=== PATIENT | male | born 1945 | race Caucasian/White ===

== ENCOUNTER 2024-01-19 11:29 | Outpatient (REF) | payer MEDICARE, BC, SELFPAY ==
[2024-01-19 13:28] LABS: Alanine Aminotransferase 22 U/L (0-40); Albumin Level 3.7 g/dL (3.5-5.0); Alkaline Phosphatase 138 U/L (39-117); Anion Gap 12 (12-20); Aspartate Amino Transferase 21 U/L (5-37); Bilirubin Total 0.2 mg/dL (0.0-1.0); Blood Urea Nitrogen 19 mg/dL (9-16); Calcium 8.7 mg/dL (8.4-10.2); Carbon Dioxide 28 mmol/L (22-29); Chloride 103 mmol/L (96-108); Estimated Glomerular Filt Rate > 60; Glucose Random 60 mg/dL (60-115); Sodium 138 mmol/L (135-145); Total Protein 6.9 g/dL (6.5-8.0)
== END 2024-01-19 11:30 | disposition home or self-care (01) ==
LOC: HO.HKASLDS 11:29
PROVIDERS: Visit Provider Internal Medicine Hypertension Specialist
DX: N18.9 Chronic kidney disease, unspecified (principal)
CPT/HCPCS: 36415; 80053

== ENCOUNTER 2024-01-21 09:53 | Outpatient (AMB) | payer MEDICARE, BC, SELFPAY ==
[2024-01-21 10:06] VITALS: BP 112/62; PULSE 68; O2SAT 99; BMI 24.6
--- NOTE | 2024-01-21 10:06 | HO.NEPHOV_ITS ---
HPI HPI Comments History of Present Illness Details Tip is a 78-year-old gentleman whom I had the privilege in seeing in follow-up for edema. He had shoulder surgery on the left in October 2021. Following this, he had developed body rash as well as generalized edema. 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 Subsequently he underwent right shoulder surgery as well. There was no concrete reason identified for his edema. He was treated with Lasix with improvement. He has no history of any renal function or liver function abnormality. He denies shortness of breath, paroxysmal nocturnal dys pnea, orthopnea. He feels improved. [facility] Surgical History (Updated 01/21/24 @ 10:09 by Bobbi Alvarez) History of right shoulder replacement (~06/2023) Vital Signs 01/21/24 10:06 Height 6 ft 3 in Weight 197 lb BMI 24.6 BP 112/62 Blood Pressure Location Lt brachial Position Sitting Pulse 68 Pulse Source Pulse Oximeter Pulse Oximetry (%) 99 Oxygen Delivery Method Room Air Physical Exam Vital Signs: Last Vital Signs Pulse 68 01/21/24 10:06 BP 112/62 01/21/24 10:06 Pulse Ox 99 01/21/24 10:06 Oxygen Delivery Method Room Air 01/21/24 10:06 BMI result Body Mass Index 24.6 Const General: comfortable and no acute distress Orientation/consciousness: patient oriented x3 HEENT Head: Yes normocephalic Mouth: Normal oral and palatal mucosa present Eyes EOM: EOMs intact bilaterally Neck Neck: Yes supple Resp Auscultation: clear to auscultation bilaterally Cardio Jugular venous distension: no JVD Rate: regular rate GI Palpation (GI): Soft to palpation Auscultation: normal bowel sounds General: Yes no CVA tenderness Back/Spine/Pelvis Back: no CVA tenderness Skin General skin exam: no rashes or lesions noted Neuro General: patient oriented x3 and moves all extremities Extrem General: Yes no pedal edema Assessment & Plan Assessment & Plan (1) Edema: Code(s): R60.9 - Edema, unspecified Qualifiers: Edema type: unspecified Qualified Code(s): R60.9 - Edema, unspecified Plan Tip had edema, etiology of which was never determined. He had seen multiple specialists. His urine protein creatinine ratio was unremarkable. He was treated with diuretics. His renal functions on normal. He does not consume excess sodium in the diet. His lungs were clear. His liver functions are normal. His serum albumin was never too low. He had echocardiogram. Currently he is euvolemic on the current dose of diuretics. I did not make any medication changes today. Answered all questions. Orders: Orders Electrolytes Today R60.9 - Edema, unspecified Creatinine Today R60.9 - Edema, unspecified Blood Urea Nitrogen Today R60.9 - Edema, unspecified Protein Creatinine Ratio, Ur Today R60.9 - Edema, unspecified Coding Level of Care Code Est Pt Level 4 (34460) Diagnoses Edema, unspecified type R60.9 Edema type: unspecified Results Reviewed Nephrology Results: Sodium 138 mmol/L (135-145) 01/19/24 Potassium 5.0 mmol/L (3.3-5.1) 01/19/24 Chloride 103 mmol/L (96-108) 01/19/24 Carbon Dioxide 28 mmol/L (22-29) 01/19/24 BUN 19 mg/dL (9-16) H 01/19/24 Creatinine 0.82 mg/dL (0.5-1.4) 01/19/24 Calcium 8.7 mg/dL (8.4-10.2) 01/19/24
== END 2024-01-21 10:44 | disposition home or self-care (01) ==
PROVIDERS: PCP Internal Medicine Endocrinology, Diabetes & Metabolism; Visit Provider Internal Medicine Nephrology
DX: R60.9 Edema, unspecified (principal)
CPT/HCPCS: 99214

== ENCOUNTER → 2024-01-21 09:53 | Outpatient (BNVA) | payer MEDICARE, BC, SELFPAY | PROVIDERS: PCP Internal Medicine Endocrinology, Diabetes & Metabolism; Visit Provider Internal Medicine Nephrology | DX: R60.9 Edema, unspecified (principal) | CPT/HCPCS: 99212 ==

== ENCOUNTER 2024-07-05 10:41 | Outpatient (REF) | payer MEDICARE, BC, SELFPAY ==
[2024-07-05 18:19] LABS: Creatinine Urine 54.29 mg/dL; Total Protein Urine Random < 7 mg/dL (<12)
[2024-07-05 18:24] LABS: Anion Gap 12 (12-20); Blood Urea Nitrogen 20 mg/dL (9-16); Carbon Dioxide 27 mmol/L (22-29); Chloride 99 mmol/L (96-108); Estimated Glomerular Filt Rate > 60; Potassium 4.6 mmol/L (3.3-5.1); Sodium 133 mmol/L (135-145)
== END 2024-07-05 10:42 | disposition home or self-care (01) ==
LOC: HO.HKASLDS 10:41
PROVIDERS: Visit Provider Internal Medicine Nephrology
DX: R60.9 Edema, unspecified (principal)
CPT/HCPCS: 36415; 80051; 82565; 82570; 84156; 84520

== ENCOUNTER 2024-07-14 10:07 | Outpatient (AMB) | payer MEDICARE, BC, SELFPAY ==
--- NOTE | 2024-07-14 10:12 | HO.NEPHOV_ITS ---
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 He had shoulder surgery on the left in October 2021. Following this, he had developed body rash as well as generalized edema. 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 Subsequently he underwent right shoulder surgery as well. There was no concrete reason identified for his edema. He was treated with Lasix with improvement. He has no history of any renal function or liver function abnormality. He denies shortness of breath, paroxysmal nocturnal dyspnea, orthopnea. He feels improved [facility] Surgical History History of right shoulder replacement (~06/2023) Social History (Updated 07/14/24 @ 10:17 by Diana Perry MA) Alcohol intake: never Patient Tobacco Use Status: Never used Tobacco Use of substances other than those prescribed or required for medical reasons: No Review of Systems Const All systems reviewed & are unremarkable except as noted in HPI and below Physical Exam Vital Signs: Last Vital Signs BP 102/60 07/14/24 10:13 BMI result Body Mass Index 23.8 Const General: comfortable and no acute distress Orientation/consciousness: patient oriented x3 HEENT Head: Yes normocephalic Mouth: Normal oral and palatal mucosa present Eyes EOM: EOMs intact bilaterally Neck Neck: Yes supple Resp Auscultation: clear to auscultation bilaterally Cardio Jugular venous distension: no JVD Rate: regular rate GI Palpation (GI): Soft to palpation Auscultation: normal bowel sounds General: Yes no CVA tenderness Back/Spine/Pelvis Back: no CVA tenderness Skin General skin exam: no rashes or lesions noted Neuro General: patient oriented x3 and moves all extremities Extrem General: Yes no pedal edema Results Reviewed Nephrology Results: Sodium 133 mmol/L (135-145) L 07/05/24 Potassium 4.6 mmol/L (3.3-5.1) 07/05/24 Chloride 99 mmol/L (96-108) 07/05/24 Carbon Dioxide 27 mmol/L (22-29) 07/05/24 BUN 20 mg/dL (9-16) H 07/05/24 Creatinine 0.85 mg/dL (0.5-1.4) 07/05/24 Calcium 8.7 mg/dL (8.4-10.2) 01/19/24 Urine Creatinine 54.29 mg/dL 07/05/24 Protein/Creatinin Ratio TNP 07/05/24 Assessment & Plan Assessment & Plan (1) Edema: Code(s): R60.9 - Edema, unspecified Category: Medical Qualifiers: Edema type: unspecified Qualified Code(s): R60.9 - Edema, unspecified (2) Hyponatremia: Code(s): E87.1 - Hypo-osmolality and hyponatremia Category: Medical Plan Tip had edema, etiology of which was never determined. He had seen multiple specialists. His urine protein creatinine ratio was unremarkable. He was t reated with diuretics. His renal functions on normal. His serum sodium is acceptable. He is going to be on fluid restriction. He does not consume excess sodium in the diet. His lungs were clear. His liver functions are normal. His serum albumin was never too low. He had echocardiogram. Currently he is euvolemic on the current dose of diuretics. I did not make any medication changes today. Answered all questions Orders: Orders Blood Urea Nitrogen Today E87.1 - Hypo-osmolality and hyponatremia, R60.9 - Edema, unspecified Creatinine Today E87.1 - Hypo-osmolality and hyponatremia, R60.9 - Edema, unspecified Electrolytes Today E87.1 - Hypo-osmolality and hyponatremia, R60.9 - Edema, unspecified Coding Level of Care Code Est Pt Level 4 (65931) Diagnoses Edema, unspecified type R60.9 Edema type: unspecified Hyponatremia E87.1
[2024-07-14 10:13] VITALS: BP 102/60; BMI 23.8
== END 2024-07-14 10:34 | disposition home or self-care (01) ==
PROVIDERS: PCP Internal Medicine Endocrinology, Diabetes & Metabolism; Visit Provider Internal Medicine Nephrology
DX: R60.9 Edema, unspecified (principal); E87.1 Hypo-osmolality and hyponatremia
CPT/HCPCS: 99214

== ENCOUNTER → 2024-07-14 10:07 | Outpatient (BNVA) | payer MEDICARE, BC, SELFPAY | PROVIDERS: PCP Internal Medicine Endocrinology, Diabetes & Metabolism; Visit Provider Internal Medicine Nephrology | DX: R60.9 Edema, unspecified (principal); E87.1 Hypo-osmolality and hyponatremia | CPT/HCPCS: 99212 ==

== ENCOUNTER 2025-01-05 14:09 | Outpatient (REF) | payer MEDICARE, BC, SELFPAY ==
--- OUTSIDE RECORDS SUMMARY | 2025-01-05 17:22 | XMS_ITS | Clinical Summary ---
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 Name Role Phone Mahendra Espinosa MD Primary Care Provider Allergies Active Allergy Reactions Criticality Noted Date Comments Clindamycin Diarrhea 08/11/2011 Lactose 09/08/2022 Penicillins 2021 Other reaction(s): as a child, hives Sulfamethoxazole-Trimethopr im 02/01/2018 Burning/itching sensation in calves Medications primidone (MYSOLINE) 250 MG tablet Take 750 mg by mouth 1 (one) time each day Active cycloSPORINE (RESTASIS) 0.05 % ophthalmic emulsion 1 drop 2 (two) times a day Active EPINEPHrine (EPIPEN) 0.3 MG/0.3ML injection syringe PLEASE SEE ATTACHED FOR DETAILED DIRECTIONS 2 Active triamcinolone (KENALOG) 0.1 % cream 2 Active propranolol LA (INDERAL LA) 60 MG 24 hr capsule Take 60 mg by mouth 1 (one) time each day in the evening 2 Active mirtazapine (REMERON) 15 MG tablet Take 15 mg by mouth 1 (one) time each day in the evening 2 Active Polyethylene Glycol 3350 (MIRALAX PO) Take by mouth Act justin alfuzosin (UROXATRAL) 10 MG 24 hr tablet Take 1 tablet by mouth every other day 2 Active Dupilumab 300 MG/2ML solution pen-injector Inject 2 mL under the skin every 14 (fourteen) days 2 Active DULoxetine (CYMBALTA) [address] capsule Take 60 mg by mouth 1 (one) time each day Do not crush or chew. Active buPROPion SR (WELLBUTRIN SR) 100 MG 12 hr tablet Take 100 mg by mouth in the morning and 100 mg in the evening. Do not crush, chew, or split. . 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 Eruption 07/11/2022 Fracture of scapula 06/07/2022 Generalized edema 03/04/2022 Cervical disc disorder 03/03/2022 Essential tremor 12/07/2021 Irritable bowel syndrome 07/29/2018 Benign prostatic hyperplasia 12/09/2017 Immunizations Name Administration Dates Next Due Influenza Split High Dose Pr eservative Free IM 07/30/2021,07/27/2020,08/17/2019,08/27,07/22/2017,07/28/2016,08/27/2015 ,08/24/2014,08/22/2013,08/18/2012,08/02,08/13/2010,08/07/2009, 8 Pfizer SARS-COV-2 07/30/2021 Pneumococcal Conjugate 13-Valent 07/27/2020,08/03 Pneumococcal Polysaccharide 08/18/2012 Shingrix 09/28/2019,07/29/2019 Td, Unspecified 09/04/2006,11/02/1995 Tdap 01/06/2023,08/15/2011 Zoster 08/15/2010 Family History Medical History Relation Comments Parkinsonism Father Cancer Maternal Grandmother Relation Status Comments Father Maternal Grandmother Social History Tobacco Use Types Packs/Day Years Used Date Smoking Tobacco: Never Smokeless Tobacco: Never Tobacco Cessation:Counseling Given: Not Answered Alcohol Use Standard Drinks/Week Comments Not Currently 0 (1 standard drink = 0.6 oz pur e alcohol) Sex and Gender Information Value Date Recorded Sex Assigned at Not on file Legal Sex Male 11:17 AM EDT Gender Identity Not on file Sexual Orientation Not on file Last Filed Vital Signs Vital Sign Reading Time Taken Comments Blood Pressure 100/70 02/09/2023 1:40 PM EDT Pulse 71 02/09/2023 1:40 PM EDT Temperature - - Respiratory Rate - - Oxygen Saturation 96% 07/15/2022 2:29 PM EDT Inhaled Oxygen Concentration - - Weight 88.8 kg (195 lb 12.8 oz) 02/09/2023 1:40 PM EDT Height - - Body Mass Index - - Plan of Treatment Health Maintenance Due Date Last Done Comments Influenza Vaccine (#1) 2024 , 07/27/2020, 08/17/2019, Additional history exists Pneumococcal Vaccine: 65+ Years Completed 07/27/2020, 08/27/2015, 08/18/2012 Hepatitis B Vaccine Aged Out No longe r eligible based on patient's age to complete this topic Insurance [facility]ICARE [facility] Care Teams 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
--- OUTSIDE RECORDS SUMMARY | 2025-01-05 17:22 | XMS_ITS | Data Portability ---
Author Organization [place] - [facility], [facility] Office Address [address] [place] [address] Care Team Providers Care Scanning Tech Name Role Phone EMERY EFREN Primary Care Provider Assessment Encounter Date Assessment Date Assessment LastModified by Organization Details LastModified Time 04/26/2018 04/26/2018 DATA: Review of his left shoulder MRI shows he has a large chronic tear of the supraspinatus with atrophy of the muscle belly. He has a high riding humeral head and some bursal fluid. On the right side, he has a tendinotic rotator cuff. No full thickness cuff tear. Thick CA ligament. Bursitis, but no full thickness rotator cuff tear. IMPRESSION: On the right, shoulder impingement. On the left, chronic rotator cuff tear, well compensated. PLAN: We discussed options for care. On the left side, in the future he will need a reverse shoulder replacement, but at this point, he is too well compensated. On the right, we discussed options for care. He has already had cortisone shots. They don? t help him. The plan on that side is a right shoulder scope debridement, decompression. We discussed that it? s day surgery, general anesthesia, one day in a sling, a few months of physical therapy, and we will see him back with Dr. Daniels for a surgical consult. Not available 04/27/2018 09:54:11 06/10/2018 06/10/2018 DATA: MRI is impressive, though. He has a significant spur on his acromion, downsloping on both the AP and lateral view, partial cuff tear. I don? t think it? s full thickness, but will have to look at it very carefully. PLAN: Surgical intervention which will be a scope, extensive debridement, subacromial decompression and possible cuff repair. Will get that scheduled. Not available 06/11/2018 14:38:16 07/23/2018 07/23/2018 PLAN: We discuss ed the surgery. He can start therapy next a week twice a week only. Ice and anti-inflammatorie s as needed for pain. Will see him back in a month. Also, he mentioned that the left shoulder may need a shoulder replacement. I showed him the link on Dr. Thakkar? s bio that he can review. Not available 07/25/2018 19:46:56 09/02/2018 09/02/2018 PLAN: We recomme nd a topical pain cream so that he doesn? t have to worry about his GI system. We advised Tylenol as well. Will give him a Medrol dosepak to calm that shoulder down. We also explained that intraoperatively the shoulder was very inflamed in the joint and also with the impingement. We recommended ice instead of heat. He will hold off on physical therapy for now. We will see him back in 6 weeks. The patient was seen and examined with Dr. Rolando Daniels. Dictated by Ciara Fernandez PA-C for Dr. Rolando Daniels. Not available 09/03/2018 19:37:13 10/19/2018 10/19/2018 PLAN: Continue a home exercise program. Will see him back as needed. The patient was seen and examined with Dr. Rolando Daniels. Dictated by Ciara Fernandez PA-C for Dr. Rolando Daniels. Not available 10/20/2018 15:05:40 Plan of Treatment Reminders Order Date Submit Date Provider Last Modified By Organization Details Last Modified Time Details Appointments None recorded. Lab None recorded. Referral physical therapist referral - Dx: S/P Shoulder Arthroscop y - right shoulder SAD on 07/14/182017 018 ighobrial Not available 8 11:12:18 Procedures None recorded. Surgeries orthopaedi c surgery (SURG) 2017 018 [email or web address] Not available 8 15:03:57 Imaging None recorded. Medication Orders None recorded. Patient TargetsNo targets recorded. Patient InstructionsNo instructions recorded. Reason for Referral Physical Therapist Referral for Impingement syndrome of shoulder region Dx: S/P Shoulder Arthroscopy - right shoulder SAD on 07/14/18 PLEASE REFER TO OP NOTE Referring Physician: Ciara Fernandez, Physician Workers Compensation Claims Specialist, Encounter Date: 07/23/2018 Results Created Date Observation Date Name Description Value Unit Range Abnormal Flag Note LastModifiedBy Organization Detail LastModifiedTime 03/26/20 18 03/26/2018 XR, shomanny ramila, 2 or more view Shield s Desi jarrell [facility] Access ion Number : [id number] 2.2 Patien t Name : Jake Rosario Medica l Record Number : [id number] Date of : 1945 Date of Exam : 2017 Referr ing Physic becky : CIARA CONWAY [facility] [address], [address] [place] [address] Exam : CR - SHOULD ER COMPLE TE MINIMU M 2 VIEWS CPT 57086 - RIGHT Room Descri ption : [facility] Maria E UArm XR Techni que : AP, Axilla ry Latera l, Scapul ar Y Outlet Final Report HISTOR Y: Right should er pain. No prior right should er plain films are availa ble for compar autumn. FINDIN GS and IMPRES KELY: Total of 3 right should er plain film views are provid ed. The right should er glenoh umeral joint appear s congru ent. There appear to be small glenoh umeral osteop hytes. At mckayla l greate r tubero sity there is a tiny calcif icatio n, enthes ophyte or possib ly calcif ic tendin opathy . Acromi oclavi cular joint is not widene d howeve r there are degene rative change s includ ing bony irregu larity and hypert rophy. ----- PHYSIC BECKY : VIRA MURILLO MD (Signa benedict on file) 2017 ighobrial [facility] [address] , [place], [address], 03/26/2018 14:54:49 03/26/20 18 03/26/2018 XR, shoul ramila, 2 or more view Shield s Desi jarrell [facility] Access ion Number : [id number] 2.1 Leena whiting Name : Jake Rosario Record Number : [id number] Date of : 1945 Date of Exam : 2017 Referr ing Physic becky : CIARA CONWAY [facility] [address], [address] [place] [address] Exam : CR - SHOULD ER COMPLE TE MINIMU M 2 VIEWS CPT 90555 - LEFT Room Descri ption : [facility] Vistek UArm XR Techni que : AP, Axilla ry Latera l, Scapul ar Y Outlet Final Report HISTOR Y: Left should er pain. No prior left should er plain film availa ble for compar autumn. FINDIN GS and IMPRES KELY: Total 3 left should er plain films are provid ed. The acromi oclavi cular joint appear s congru ent. There appear to be small osteop hytes around the mckayla l head as well as the glenoi d. There appear s to be mild wideni ng of the acromi oclavi cular joint. ----- PHYSIC BECKY : VIRA MURILLO MD (Silverio mcmullen on file) 2017 ighobrial [facility] [place] [address], [place], [address], 03/26/2018 14:54:49 04/13/20 18 04/05/2018 MRI, shoul ramila, w/o contr ast No observ ation record ed. [email or web address] Not Available 2017 12:07:58 04/13/20 18 04/05/2018 MRI, shoul ramila, w/o contr ast No observ ation record ed. [email or web address] Not Available 2017 12:08:22 05/17/20 18 MRI, shoul ramila, w/o contr ast No observ ation record ed. [email or web address] Not Available 2017 14:08:52 Result Notes None recorded. Procedures Surgical History Date Name Laterality Status Provider Name and Address Organization Details Recorded Time 8 Orthopaedic Surgery completed Terri Patricia [place] - [facility] 07/23/2018 10:42:20 6 Orthopaedic Surgery completed Erika Finchteddy PACHECO [facility] 03/26/2018 08:12:57 5 Orthopaedic Surgery completed Erika Finchteddy PACHECO [facility] 03/26/2018 08:10:17 5 Orthopaedic Surgery completed Erika Ward TARA [facility] 03/26/2018 08:10:04 Imaging Results Imaging Date Name Status LastModified by Organiz ation Details LastModified Time 03/26/2018 XR, shoulder, 2 or more view completed ighobrial [facility] [place] [address] , [place], [address], 03/26/2018 14:54:49 03/26/2018 XR, shoulder, 2 or more view completed ighobrial [facility] [place] [address], [place], [address], 03/26/2018 14:54:49 04/05/2018 MRI, shoulder, w/o contrast completed Information not available 04/13/2018 12:07:58 04/05/2018 MRI, shoulder, w/o contrast completed Information not available 04/13/2018 12:08:22 05/17/2018 MRI, shoulder, w/o contrast completed Information not available 05/17/2018 14:08:52 Procedure Notes None recorded. Medical Equipment None Reported. Allergies Allergen ID Allergen Name Allergen Category Reaction Reaction Severity Criticality Documentation Date Start Date Code Code System Note Provider Name and Address Organization Details Recorded Time 040940 Product containin g penicilli n (product) medicatio n Not available Not available Not available 03/26/2018 77183 8001 SNOMED Erika Ward TARA [place] [facility] 8 08:08:06 Medications Name Sig Start Date Stop Date Status Note LastModified by Organization Details LastModified Time propranolol ER 60 mg capsule,24 hr,extended release TAKE 1 CAPSULE BY ORAL ROUTE ONCE A DAY (IN THE EVENING) active Not Available Not Available No t Available sulfamethox azole 800 mg-trimetho prim 160 mg tablet 03/26 completed Not Available Not Available Not Available doxycycline monohydrate 100 mg tablet 03/26 completed Not Available Not Available Not Available cefadroxil 500 mg capsule 06/10 completed Not Available Not Available Not Available oxycodone-a cetaminophe n 5 mg-325 mg tablet 1-2 tabs PO Q 4-6 hours prn pain 07/23 completed Not Available Not Available Not Available primidone 250 mg tablet active Not Available Not Available Not Available tamsulosin 0.4 mg capsule active Not Available Not Available Not Available doxycycline monohydrate 100 mg capsule 03/26 completed Not Available Not Available Not Available methylpredn isolone 4 mg tablets in a dose pack TAKE 6 TABLETS ON DAY 1 DIRECTED ON PACKAGE AND DECREASE BY 1 TAB EACH DAY FOR A TOTAL OF 6 DAYS active Not Available Not Available No t Available doxycycline hyclate 100 mg tablet 03/26 completed Not Available Not Available Not Available Restasis 0.05 % eye drops in a dropperette 03/26 completed Not Available Not Available Not Available hydroxyprop yl cellulose 5 mg eye inserts INSERT 1 OPHTHALMI C INSERT INTO AFFECTED EYE(S) BY SUBCONJUN CTIVAL ROUTE ONCE DAILY 06/10 completed Not Available Not Available Not Available Tylenol active PRN Not Available Not Avail able Not Available Restasis active Not Available Not Avai lable Not Available GaviLyte-N 420 gram oral solution 06/10 completed Not Available Not Available Not Available Easy Fiber (wheat dextrin) 1 gram-100 mg calcium chewable tablet CHEW 1 TABLET EVERY DAY 03/26 completed Not Available Not Available Not Available Vitals Date Recorded Body height Body mass index (BMI) Body weight Provider Name and Address Organization Details Last Updated DateTime 04/26/2018 190.5 cm 21.9 kg/m2 71820.66 g Cyndie Ayers [facility] 04/26/2018 10:15:11 Date Recorded Body height Body mass index (BMI) Body weight Provider Name and Address Organization Details Last Updated DateTime 06/10/2018 190.5 cm 21.9 kg/m2 50193.66 g Debbie Skaggs [facility] 06/10/2018 12:12:39 Date Recorded Body height Body mass index (BMI) Body weight Provider Name and Address Organization Details Last Updated DateTime 07/23/2018 190.5 cm 21.9 kg/m2 94854.66 g Terri Patricia [facility] 07/23/2018 10:41:44 Date Recorded Body height Body mass index (BMI) Body weight Provider Name and Address Organization Details Last Updated DateTime 09/02/2018 190.5 cm 20.6 kg/m2 10373.74 g Boni Venegascarmina [facility] 09/02/2018 09:09:44 Date Recorded Body height Provider Name an d Address Organization Details Last Updated DateTime 10/19/2018 190.5 cm Nitesh Nathen [facility] 10/19/2018 14:53:48 Social History Question Answer Notes LastModified by Organizat ion Details LastModified Time Tobacco Smoking Status Never Smoker Erika salamanca [facility] 03/26/2018 08:09:15 What Is Your Level Of Alcohol Consumption? None [email or web address] Information not available 09/02/2018 Auto Related Injury? 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 Yes Bilat Shldrs, C-spine Information not available 03/26/2018 What Was The Date Of Your Most Recent Tobacco Screening? 10/19/2018 Information not available 05/26/2019 What Types Of Sporting Activities Do You Participate In? Walking Information not available 03/26/2018 Work Related Injury? No Information not available 03/26/2018 Sex: Unknown Functional Status None recorded. Mental Status None recorded. Family History Relationship Description Onset Age of this Age Resolved Age Notes LastModified by Organization Details LastModified Time Father No current problems or disability [email or web address] Not available 06/10 12:14:32 Mother No current problems or disability [email or web address] Not available 06/10 12:14:32 Medical History Condition Response HIV or AIDS N High Blood Pressure N Irregular Heartbeat N MRSA N Any Other Significant Medical Issues Y Weight Gain / Loss Y Hearing Loss N Angina, Heart Failure or Attack N Night Sweats N Seizures / Epilepsy N Osteoarthritis / Rheumatoid arthritis / Other Y Cancer N Stroke N Ulcer / Stomach Bleeding / Indigestion Y Visual Loss or Glaucoma N Blood Clots / Phlebitis N Heart Problems N Depression or Anxiety N Emphysema / Chronic Bronchitis N Reaction to General/Local Anesthesia N Hepatitis / Jaundice N Kidney / Bladder Infections N Diabetes N Bleeding Disorder N Chemical Dependency / Alcoholism N Psoriasis / Skin Rash N Thyroid Disorder N Heart Disease N Asthma / Shortness of Breath / Sleep V Belt Builder ea (please specify) N Pulmonary Embolism N Past Encounters Encounter ID Performer Location Encounter Start Date Encounter Closed Date Diagnosis/Indication Diagnosis SNOMED-CT Code Diagnosis ICD10 Code Diagnosis Note [id number] LOLY MORSE [facility] Office [address] [address] 03/26/2018 07:50:21 03/26/2018 09:01:27 Shoulder pain 91143575 M25.511 M25.512 [id number] LOLY MORSE [address] [address] 04/26/2018 09:39:07 04/26/2018 11:03:10 Bicipital tenosynovitis 92370693 M75.22 M75.21 Shoulder pain 09213403 M 25.511 M25.512 Bursitis of shoulder 239 681958 M75.51 M75.52 Exostosis 055090325 M77. 9 Impingemen t syndrome of right shoulder region 9836250746 59427 M75.41 Partial th ickness rotator cuff tear 671161983 M75.111 [id number] ROLANDO DANIELS MD [address] [address] 06/10/2018 11:53:50 06/10/2018 13:22:37 Bursitis of right shoulder 4815387308 11136 M75.51 Exostosis 448681132 M25. 711 Impingemen t syndrome of shoulder region 000532113 M75.41 Shoulder pain 03234731 M 25.511 [id number] LOLY MORSE [address] [address] 07/23/2018 10:36:09 07/23/2018 11:01:02 Impingement syndrome of shoulder region 350451685 M75.41 [id number] ROLANDO DANIELS MD [address] [address] 09/02/2018 08:55:36 09/02/2018 09:40:47 Bursitis of right shoulder 8228571629 43452 M75.51 Shoulder pain 44017234 M 25.511 [id number] ROLANDO DANIELS MD [facility] Office [address] [address] [place] [address] 10/19/2018 14:44:13 10/19/2018 15:04:12 Bursitis of right shoulder 7688420045 33593 M75.51 Osteophyte of bone 60462 45612 11609 M25.711 Impingemen t syndrome of right shoulder region 2346787505 57292 M75.41 Shoulder pain 72292732 M 25.511 Health Concerns Section Related Observation LastModified by Organization Detai ls LastModified Time None Recorded Concern Status LastModified by Organization Details LastModified Time None Recorded Advance Directives Directive None Recorded Payers Encounter Date Sequence Insurance Name Policy Number Policy Mccullough Covered Member ID Mccullough Member ID Guarantor Name 04/26/2018 1 [place] [employer] Yogi N [facility] [id number] [id number] [employer] 04/26/2018 2 [place] [facility] [id number] [facility] [id number] [facility] 06/10/2018 1 [place] [facility] [id number] [employer] 06/10/2018 2 [place] [facility] ([facility] [id number] [facility] [id number] 07/23/2018 1 [place] [employer] [facility] [id number] [id number] [facility] 07/23/2018 2 [place] [facility] ([facility] [id number] [employer] [id number] [facility] 09/02/2018 1 [place] [facility] [id number] [facility] 09/02/2018 2 [place] [facility] ([facility] [id number] Yogi Lozanochaya [id number] Yogi Sadler [facility] 10/19/2018 1 [place] [facility] Yogi Mcfarland [id number] [id number] Yogi Sadler [facility] 10/19/2018 2 [place] [facility] ([facility] [id number] Yogi Lozanochaya [id number] Yogi Sadler [facility] Notes Date Note Type Note Provider Name and Address Organization Details Recorded Time 04/26/2018 text/html HX: 72-year-old male who comes in today with his for bilateral shoulder MRI follow-up. Briefly, on the left he had a scope in 2014 where they did a decompression and told him they could not fix his rotator cuff tear. He says he currently has limited motion and pain, but overall he can manage this. On the right, he continues to have pain and it? s quite limiting. LOLY MORSE [address] [place] [address], [phone], [facility] 04/27/2018 14:56:01 06/10/2018 text/html HX: Tip comes in today for recheck. He has been working with Ciara. He is having discomfort in the shoulder reaching to the side and to the overhead. ROLANDO DANIELS MD [address] [place] [address], [phone], [facility] 06/14/2018 08:05:11 07/23/2018 text/html HX: 72-year-old who comes in today for his first postoperative visit status post right shoulder arthroscopy, extensive debridement, release of adhesions and a decompression on 07/14/2018. He notes that he is doing well at this time. LOLY MORSE [address] [place] [address], [place], [address], [facility] 07/26/2018 08:44:35 09/02/2018 text/html HX: 72-year-old who comes in today with his first postoperative visit. He is now 5 weeks status post a decompression. He reports that he is very frustrated. He says it hurts all the time. It? s worse than the surgery before. Initially there was confusion about physical therapy, whether the physical therapist was having him do physical therapy exercises at home 3 sets of 30 multiple times a day, and he was advised to discontinue this, as this was suspected to cause him increased pain. It was too much postoperatively to do initially. Also, because he continued to have pain, I had him discontinue the PT. He comes in today frustrated. He reports he can? t take NSAIDs because of his stomach. He also reports that Tylenol is in the same class, so he has not tried the Tylenol. ROLANDO DANIELS MD [address] [place] [address], [phone], [facility] 09/06/2018 12:16:15 10/19/2018 text/html HX: Tip comes in today doing better than last time. He is doing a home exercise program. ROLANDO DANIELS MD [address] [place] [address], [phone], [facility] 10/20/2018 16:25:30
--- OUTSIDE RECORDS SUMMARY | 2025-01-05 17:22 | XMS_ITS | Continuity of Care Document ---
Author Organization [facility] Address [address], [address], [address] [place] [id number] Care Team Providers Care Emergency Vehicle Technician Name Role Phone Jojo OVALLES, [place] Primary Care Physician [phone] Encounter [facility] [place]s): 11/25/24 - 12/25/24 [facility] [address], [address] [place] [id number] Encounter Type: Triage Allergies, Adverse Reactions, Alerts Substance Criticality Severity Reaction Reaction Severity Status penicillins as a child, hives Active sulfa drugs 1 Active Lactose Active 1Rash Immunizations Given and Recorded Vaccine Date Status Refusal Reason influenza virus vaccine, inactivated 07/14/24 Zachariah rded influenza virus vaccine, inactivated 08/10/23 Zachariah rded influenza virus vaccine, inactivated 07/08/22 Zachariah rded influenza virus vaccine, inactivated 07/30/21 Zachariah rded influenza virus vaccine, inactivated 07/27/20 Zachariah rded influenza virus vaccine, inactivated 08/18/19 Zachariah rded influenza virus vaccine, inactivated 08/27/18 Zachariah rded influenza virus vaccine, inactivated 07/22/17 Zachariah rded influenza virus vaccine, inactivated 07/28/16 Zachariah rded influenza virus vaccine, inactivated 08/27/15 Zachariah rded influenza virus vaccine, inactivated 08/24/14 Zachariah rded influenza virus vaccine, inactivated 08/22/13 Zachariah rded influenza virus vaccine, inactivated 08/18/12 Zachariah rded influenza virus vaccine, inactivated 08/15/11 Zachariah rded influenza virus vaccine, inactivated 08/13/10 Zachariah rded influenza virus vaccine, inactivated 08/07/09 Zachariah rded influenza virus vaccine, inactivated 08/03/08 Zachariah rded SARS-CoV-2(COVID-19)mRNA-LNP vac([id number]) 07/14/24 Recorded SARS-CoV-2(COVID-19)mRNA-LNP vac([id number]) 08/10/23 Recorded tetanus/diphtheria/pertussis, acel(Tdap) 01/06/23 Given tetanus/diphtheria/pertussis, acel(Tdap) 08/15/11 Recorded [id number] 12y+ bivalent booster vax 09/30/22 Recorded SARS-CoV-2 (COVID-19) mRNA BNT-162b2 vac 07/30/21 Recorded SARS-CoV-2 (COVID-19) mRNA BNT-162b2 vac 01/27/21 Recorded SARS-CoV-2 (COVID-19) mRNA BNT-162b2 vac 01/06/21 Recorded pneumococcal 13-valent vaccine 07/27/20 Recorded pneumococcal 13-valent vaccine 08/27/15 Recorded zoster vaccine, inactivated 09/28/19 Recorded zoster vaccine, inactivated 07/29/19 Recorded pneumococcal 23-valent vaccine 08/18/12 Recorded Zoster Vaccine Live 08/15/10 Recorded tetanus-diphtheria toxoids (Td) 09/04/06 Recorded tetanus-diphtheria toxoids (Td) 11/02/95 Recorded Problem List Condition Confirmation Course Effective Dates Status H ealth Status Informant Alkaline phosphatase elevation Confirmed Active Anemia Confirmed Active Facet arthropathy, cervical Confirmed Active BPH (benign prostatic hypertrophy) Confirmed Active Cervical disc disease Confirmed Active Cervical radiculopathy Confirmed Active Neck pain, chronic Confirmed Active Cognitive changes Confirmed Active DDD (degenerative disc disease), cervical Confirmed Active DDD (degenerative disc disease), lumbar Confirmed Active Diarrhea Confirmed Active Dupuytren contracture Confirmed Active Pedal edema Confirmed Active Essential tremor Confirmed Active Angiokeratoma of scrotum Confirmed Active Anasarca Confirmed Active History of diarrhea Confirmed Active S/p bilateral shoulder joint replacement Confirmed Active History of arthroplasty of left shoulder Confirmed Active History of arthroplasty of right shoulder Confirmed Active History of syncope Confirmed Active Status post right knee replacement Confirmed Active Hyperkalemia Confirmed Active Hyponatremia Confirmed Active Hypotension Confirmed Active Nausea Confirmed Active Hand paresthesia Confirmed Active Paroxysmal A-fib Confirmed Active Medicare annual wellness visit, subsequent Confirmed Active Elevated PSA Confirmed Active Rotator cuff arthropathy of right shoulder Confirmed Active Right shoulder pain Confirmed Active Chronic shoulder pain Confirmed Active Social History Social History Type Response Smoking Status Never smoker entered on: 05/26/16 Sex Sex Representation Male (finding) Patient Care team information Care Team Personnel Name: Heather Johnson RN Position: [facility] SN RN Member Role: Primary Care Nurse Name: Falguni Velasquez Position: [facility] Outreach Member Role: Lifetime Consulting Physician Name: Kirill Zuluaga RN Position: S RN Member Role: Primary Care Nurse Name: Jacques White MD Position: [facility] Outreach Member Role: Lifetime Consulting Physician Address: [address] [facility], [place] [id number] Telecom: Name: Nitesh Delacruz MD Position: [facility] Renal MD Member Role: Lifetime Consulting Physician Address: [address] [facility] [address] Telecom: Name: Villa Uribe MD Position: [facility] Physician - Primary Care Member Role: PCP Address: [address] [place] [address] Telecom: Name: Devorah Mcnally RN Position: [facility] RN Member Role: Primary Care Nurse Care Team Related Persons Name: KRISTOPHER SALAZAR Name: GARRETT SALAZAR Insurance Providers Guarantor name: DALIA REYKEVIN Health Plan Information #: 1 Payer: MEDICARE PART B OUTPT Member Number: NA Policy Number: NA Group Number: NA Health Plan Information #: 2 Payer: HMO BLUE IN NETWORK Member Number: NA Policy Number: NA Group Number: NA
--- OUTSIDE RECORDS SUMMARY | 2025-01-05 17:22 | XMS_ITS | Data Portability ---
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 This has been going on for 5-6 weeks. Seems to be getting worse per but has been persistent. Apparently they initially contacted PCP office and because they gave the patient and his family our number for in person evaluation since d/t the pandemic thye are not doing as many in person evals. They did not initially contact us but they kept our number just in case. In the meantime it seems he has had a ronan road so to speak w/ numerous follow ups and testing being done. He tried multiple antihistamines for this issue and they seemed to help w/ some of his sx's but he was not able to tolerate the s/e's. Seems some of the s/e were change in mood, fatigue, and cold extremities per . This occurred w/ Zyrtec, benadryl, and famotidine. He was seen in the ED for this issue and has tests done that were negative and he was prescribed prednisone burst therapy that did not provide relief. He was seen in derm d/t presence of an intermittent rash with sx's but he was unable to be fully evaluated by them as he did not have the rash at the time of his appt per their report. He was prescribed triamcinoline cream it seems and they report reief of sx's with this but he used a ot of this in a short time so there was hesitancy to prescribe more d/t possibility for s/s and skin thinning. Pt apparently was also worked u by hematology for this issue w/o any findings. Seems that they referred him to an fire equipment inspector for further workup and tx for this. He has an appointment this w/ ADALBERTO to [facility] w/ there service. He also has f/u with the PA from his PCP office on Thursday for check in. Seems that he and family are frustrated thus far and are getting burnt out from the sx's and lack of concrete answers. They have been using Sarna cream (constantly) every 2 hours to help relieve sx's. This has been working but d/t the amount of times he needs cream to be applied for relief it has been a burden and has cut into his and his partner's sleep. They are inquiring out insight today. On PVIX I can see that recent TSH, CBC w/ diff, and CMP studies are all generally unremarkable w/ only abnormalities being mild anemia that is asx and mild hypoNa that is also asx. (Of note his sodium was 132 and beginning of normal range is 133). There are no other changes to his sx's since onset except some possible worsening. He has no hz, fever, N/V/D, pain, or numbness/tingling . Of note he was also prescribed gabapentin from the PCP at some point during this course but not 100% clear when, appears he did not tolerate this drug as well as gave hism s/e of shock like sensations . He has stopped taking it d/t this. Exam: Vitals: VSS and afebrile Constitutional: 76 yo Well developed, well nourished, pleasant patient in no apparent distress. He is laying comfortably in his reclining chair currently and he is nontoxic appearing. No active itching of his skin while we are present in the home. Eyes: PERRL at 4mm, EOM's intact, No swelling, no discharge, sclera / conjunctiva clear ENT: no erythema/ exudate noted in oropharynx, moist mucous membranes CV: Normal HR, reg rhythm, no rubs/ murmurs/ gallops heard, 2+ radial pulses bilaterally, no edema and no calf tenderness BL, 2+ DP/ PT pulses bilaterally Pulm: breath sounds clear and equal bilaterally, no wheeze/ rhonchi or rales on auscultation. Speaks in full sentences, no increased work of breathing. GI: Soft, non-tender to palpation. No masses, normal bowel sounds. MS: moves all limbs without deficit, no evidence of trauma Neuro: No focal deficits, CN? s II-XII grossly normal, sensation intact, A&O x4 Skin: Small erythematous flat rash noted to the upper area of his chest. No placques and no exudates or open areas noted. No excoriations. He does have a small 0.5 cm round red jenn that is not open on his LUE that he scarteched and then came up that he wanted looked at, It is not concerning appearing and it is not open or infected. No other skin eruptions noted. Psych: Calm, cooperative, non-manic. Pleasant. DDx considered, but not limited to: Dermatographia - I wonder about this diagnosis and interesteingly enough his senior business objects developer had the same thought. Seems his rash will appear in areas where he scracthes and then get worse from there. I am unsure if there are subtypes of this disorder where you may have genralized pruritis constantly but he will need further workup for this w/ immunology. Cellulitis - no warmth, no exudates, no fever, no s/s infx. not likely, c/o is more subacute going on chronic Dermatitis - c/o is more subacute going on chrnonic, rash is only intermittent and there are no new exposures per fam and pt Sepsis - no fever, chills, VSS and he is afebrile. Unlikely Scabies - considered d/t pruritis however his if sx free and he has no burrowing or classic signs of scabies infx at this time Liver Disorder - last CMP in October during his workup for this issue revealed normal AST and ALT and he has a completely benign abdomen examination. unlikely Work up/Results: N/a Plan/Discussion: Generalized Pruritis: -No exact cause known to this time -Has been managing sx's w/ Sarna cream, apparently w/ good effect but inconvenient at he has been needing to apply creams every 2 hours for relief. -Has had extensive workup w/ specialists thus far including derm, hematology, he has spoken w/ neurology, and he has appt coming up with immunology this . -I did review labs and course w/ the nad patient in detail. There is no concrete cause of sx's at this time and they are becoming frustrated and upset by this. -at this point he has stable VS and benign exam. His rash is nonspecific. -He has failed many first line medicines for these sx's, gabapentin for burning, antiistamines for pruritis, and even prednisone. -At this point I DO NOT believe it would be appropriate for me to initiate any addn medications as the only medicines I would feel comofrtable prescribing in this situation would be prednisone or antihistamines and he has not had relief and has not tolerated some of these -I think the best course of action at this time would be to follow up and see PCP this Thu and Immunology this . -No testing at this time as his CMP and CBC were already normal in the ED during his workup of this condition. I anticipate no change in this. -At this point f/u w/ PCP and imunology -F/u emergently w/ any fever/chills, N/V/D, abd pain, acutely worsneing rash, numbness/tingling , severe pains. Pt and is on agreement and verbalizes understanding with the above plans at this time. Pt and has no other questions or concerns at this time. All questiosn are answered to the best of my ability. Pt and thanks us for our visit today. Of note I do worry for psych causes of his sx's ie Conversion disorder. It is obviously too early to tell and he need further testing from immunology and possibly neurology (although per pt and they discussed case w/ pt neurology and he believed that it is not a neuro issue at that time d/t the fact that antihistamines did relieve sx's somewhat). I do hope further testing reveals a cause and he can get proper treatment for his condition. Reason I wonder if psych could be a cause is his new allergy /rxn to multiple new medications (ie antihistamines and gabapentin) and his vage c/o. He does have an objective rash however which makes this less likely. Still it remains in the back of my mind if all other testing comes out normal. Alos of note pt hasnot seen a provider at [facility] yet but his visit is telehalth per . D/t this I will offer my note for physical exam for refenece, I will have [place] send this note over to their service. In order to obtain further information and compare any laboratory results/values, I have accessed [facility]. This information was pertinent in my medical decision making today. Time On Scene with Patient: 01:12:45 [email or web address] Not available 12/16/2021 17:15:35 Plan of Treatment Reminders Order Date Submit Date Provider Last Modified By Organization Details Last Modified Time Details Appointments None record ed. Lab None record ed. Referral None record ed. Procedures None record ed. Surgeries None record ed. Imaging None record ed. Medication Orders None record ed. Patient TargetsNo targets recorded. Patient InstructionsNo instructions recorded. Reason for Referral None Reported. Procedures Surgical History Date Name Laterality Status Provider Name and Address Organization Details Recorded Time arthroplasty of knee completed LOLY Betancourt [address] [place], [address], [place] - [facility] 12/16/2021 12:24:10 prosthetic arthroplasty of shoulder completed LOLY Betancourt [address] [place], [address], [place] [facility] 12/16/2021 12:24:20 Imaging Results None recorded. Procedure Notes None recorded. Medical Equipment None Reported. Allergies Allergen ID Allergen Name Allergen Category Reaction Reaction Severity Criticality Documentation Date Start Date Code Code System Note Provider Name and Address Organization Details Recorded Time [id number] Product containin g penicilli n (product) medicatio n Not available Not available Not available 12/16/2021 [id number] SNOMED LOLY Smith [address] [place], [address], [place] [facility] 12:18:18 Medications Name Sig Start Date Stop Date Status Note LastModified by Organization Details LastModified Time celecoxib 200 mg capsule TAKE 1 CAPSULE BY MOUTH EVERY DAY active Not Available Not Available No t Available clindamycin HCl 300 mg capsule TAKE 2 CAPSULES BY MOUTH ONE HALF HOUR PRIOR TO DENTAL WORK 12/16 completed Not Available Not Available Not Available cetirizine 10 mg tablet TAKE 1 TABLET BY MOUTH 2 TIMES A DAY FOR 30 DAYS. 12/16 completed Not Available Not Available Not Available aspirin 325 mg tablet DIRECTED TAKE 1 TABLET BY MOUTH DAILY FOR 14 DAYS BEGINNING THE DAY AFTER SURGERY. 12/16 completed Not Available Not Available Not Available prednisone 20 mg tablet TAKE 2 TABLETS BY MOUTH EVERY DAY DIRECTED FOR 5 DAYS active Not Available Not Available No t Available propranolol ER 60 mg capsule,24 hr,extended release TAKE 1 CAPSULE BY MOUTH IN THE EVENING active Not Available Not Available No t Available triamcinolo ne acetonide 0.1 % topical cream APPLY THIN COAT TO AFFECTED AREA TWICE A DAY 12/16 completed Not Available Not Available Not Available famotidine 20 mg tablet TAKE 1 TABLET BY MOUTH 2 TIMES A DAY FOR 30 DAYS. 12/16 completed Not Available Not Available Not Available primidone 250 mg tablet TAKE 1 TABLET BY MOUTH AT NOON AND 2 TABLETS AT 8PM (TOTAL 3 TABLETS DAILY) active Not Available Not Available No t Available aspirin 325 mg tablet,ledy yed release TAKE ONE TABLET TWICE A DAY FOR 30 DAYS. MEDICATIO N TO BE STARTED AFTER SURGERY. 12/16 completed Not Available Not Available Not Available tamsulosin 0.4 mg capsule TAKE 1 CAPSULE BY MOUTH EVERY DAY active Not Available Not Available No t Available diazepam 2 mg tablet TAKE 1 TABLET UP TO THREE TIMES A DAY NEEDED FOR MUSCLE SPASM 12/16 completed Not Available Not Available Not Available pantoprazol e 40 mg tablet,ledy yed release TAKE 1 TABLET BY MOUTH EVERY DAY STARTING AFTER SURGERY active Not Available Not Available No t Available docusate sodium 100 mg capsule TAKE 1 CAPSULE BY MOUTH UP TO TWICE DAILY NEEDED FOR CONSTIPAT ION WHILE TAKING NARCOTIC MEDS 12/16 completed Not Available Not Available Not Available hydroxyzine HCl 25 mg tablet TAKE 1 TABLET BY MOUTH 3 TIMES DAILY NEEDED FOR ITCHING. 12/16 completed Not Available Not Available Not Available gabapentin 100 mg capsule TAKE 1 CAPSULE BY MOUTH THREE TIMES A DAY 12/16 completed Not Available Not Available Not Available epinephrine 0.3 mg/0.3 mL injection, auto-inject or PLEASE SEE ATTACHED FOR DETAILED DIRECTION S active Not Available Not Available No t Available oxycodone 5 mg tablet TAKE 1 TABLET BY MOUTH 4 TIMES A DAY NEEDED FOR SEVERE PAIN 12/16 completed Not Available Not Available Not Available Restasis 0.05 % eye drops in a dropperette INSTILL 1 DROP INTO BOTH EYES TWICE A DAY active Not Available Not Available No t Available Pain Relief Extra Strength (acetaminop hen) 500 mg tablet DIRECTED TAKE 2 TABLETS BY MOUTH EVERY 8 HOURS AROUND THE CLOCK FOR PAIN. active Not Available Not Available No t Available Metamucil active Not Available Not Sofya ilable Not Available Vitals Date Recorded Body temperature Heart rate Oxygen saturation Oxygen saturation in Arterial blood by Pulse oximetry Respiratory rate Systolic blood pressure Diastolic blood pressure Provider Name and Address Organization Details Last Updated DateTime 98 [degF] 64 /min 96 % 96 % 16 /min 112 mm[Hg] 62 mm[Hg] Not Available [facility] 12:23:36 Social History Question Answer Notes LastModified by Organizat ion Details LastModified Time Tobacco Smoking Status Former Smoker LOLY Betancourt [address] [place], [address], [place] [facility] 12/16/2021 12:23:48 What Is Your Level Of Alcohol Consumption? None Information not available 12/16/2021 Do You Use Any Illicit Or Recreational Drugs? No Information not available 12/16/2021 Do You Or Have You Ever Used Any Other Forms Of Tobacco Or Nicotine? No Information not available 12/16/2021 Sex: Unknown Functional Status None recorded. Mental Status None recorded. Family History Relationship Description Onset Age of this Age Resolved Age Notes LastModified by Organization Details LastModified Time Brother Diabetes mellitus [email or web address] Not available 2021 12:23:20 Medical History Condition Response Diabetes N Coronary Artery Disease N CHF N Parkinson's Disease N Cancer N Stroke N Dementia N Asthma N Hypothyroidism N Depression N COPD N High Cholesterol N Rheumatoid Arthritis N Pulmonary Embolism N Hypertension N A-fib N Osteoporosis N Kidney Disease N Past Encounters Encounter ID Performer Location Encounter Start Date Encounter Closed Date Diagnosis/Indication Diagnosis SNOMED-CT Code Diagnosis ICD10 Code Diagnosis Note [id number] LOLY Heredia [facility] [place]NOTE 3] - HOME [address] [place] [address] 12/16/2021 11:57:33 12/18/2021 12:10:20 Generalized pruritus 916634436 L29.9 Health Concerns Section Related Observation LastModified by Organization Detai ls LastModified Time None Recorded Concern Status LastModified by Organization Details LastModified Time None Recorded Advance Directives Directive None Recorded Payers Encounter Date Sequence Insurance Name Policy Number Policy Mccullough Covered Member ID Mccullough Member ID Guarantor Name 12/16/2021 1 [place] [employer] Yogi Lozanochaya [id number] [facility] [facility] [facility] 12/16/2021 2 [place] [id number] [facility] [id number] Yogi Lozanochaya Notes Date Note Type Note Provider Name and Address Organization Details Recorded Time 2 text/html 76 YO M new to and to providerHe is being seen today for generalized pruritis and burning to his skin. This has been going on for 5-6 weeks. Seems to be getting worse per but has been persistent. Apparently they initially contacted PCP office and because they gave the patient and his family our number for in person evaluation since d/t the pandemic thye are not doing as many in person evals. They did not initially contact us but they kept our number just in case. In the meantime it seems he has had a ronan road so to speak w/ numerous follow ups and testing being done. He tried multiple antihistamines for this issue and they seemed to help w/ some of his sx's but he was not able to tolerate the s/e's. Seems some of the s/e were change in mood, fatigue, and cold extremities per . This occurred w/ Zyrtec, benadryl, and famotidine. He was seen in the ED for this issue and has tests done that were negative and he was prescribed prednisone burst therapy that did not provide relief. He was seen in derm d/t presence of an intermittent rash with sx's but he was unable to be fully evaluated by them as he did not have the rash at the time of his appt per their report. He was prescribed triamcinoline cream it seems and they report reief of sx's with this but he used a ot of this in a short time so there was hesitancy to prescribe more d/t possibility for s/s and skin thinning. Pt apparently was also worked u by hematology for this issue w/o any findings. Seems that they referred him to an fire equipment inspector for further workup and tx for this. He has an appointment this w/ ADALBERTO to [facility] w/ there service. He also has f/u with the PA from his PCP office on Thursday for check in. Seems that he and family are frustrated thus far and are getting burnt out from the sx's and lack of concrete answers. They have been using Sarna cream (constantly) every 2 hours to help relieve sx's. This has been working but d/t the amount of times he needs cream to be applied for relief it has been a burden and has cut into his and his partner's sleep. They are inquiring out insight today. On [facility] I can see that recent TSH, CBC w/ diff, and CMP studies are all generally unremarkable w/ only abnormalities being mild anemia that is asx and mild hypoNa that is also asx. (Of note his sodium was 132 and beginning of normal range is 133). There are no other changes to his sx's since onset except some possible worsening. He has no hz, fever, N/V/D, pain, or numbness/tingling. Of note he was also prescribed gabapentin from the PCP at some point during this course but not 100% clear when, appears he did not tolerate this drug as well as gave hism s/e of shock like sensations . He has stopped taking it d/t this. LOLY Betancourt [address], [place], [address], [place] [facility] 12/16/2021 17:15:44
--- OUTSIDE RECORDS SUMMARY | 2025-01-05 17:22 | XMS_ITS | Data Portability ---
Author Organization MD - [facility], [place] - [employer] Address [address] [facility] [address] [place] [address] Care Team Providers Care Criminal Legal Assistant Name Role Phone DAVID DELGADILLO Referring Provider [phone] DAVID DELGADILLO Primary Care Provider Assessment No assessment recorded. Plan of Treatment Reminders Order Date Submit Date Provider Last Modified By Organization Details Last Modified Time Details Appointments None recorded. Lab None recorded. Referral physical therapist referral - Cervical tractionN kacie range of motionNec k isometric sScapular retractio nScapular strengthe ning1-2 times a week for 6 weeks 2023 024 [email or web address] [facility], [address] [place] [address], [address], 4 15:51:05 physical therapist referral - Bilateral shoulder strengthe ningDelto id and scapular strengthe ningUnres tricted active, active assisted range of motionGen tle passive range of motion1-2 times a week for 6 weeks 2022 023 [email or web address] [facility], [address] [place] [address], [address], 3 15:15:35 physical therapist referral - Do not start shoulder PT until PO wk 4Immediat e scapular isometric sNO PROM before PO wk 6After PO wk 6Unrestri cted AROMRotat or cuff isometric sBegin gentle PROMAfter PO wk 10Full rotator cuff and scapular strengthe thai program1- 2 times a week for 8 weeks 2022 023 [email or web address] Not available 3 12:19:56 Procedures None recorded. Surgeries None recorded. Imaging XR, shoulder, 2 or more view 2023 [email or web address], [address], 4 11:26:20 XR, shoulder, 2 or more view 2023 [email or web address], [address], 4 14:44:09 XR, shoulder, 2 or more view [address], [address], 3 13:49:46 XR, shoulder, 2 or more view [email or web address], [address], 3 13:30:46 Medication Orders None recorded. Patient TargetsNo targets recorded. Patient Instructions Encounter Date Encounter Id Patient Instructions Last Modified By Organization Details Last Modified Time 06/18/2023 [id number] Tip presents tod ay for follow-up of his right shoulder. He had right reverse total shoulder arthroplasty with Dr. Adams on 06/09/2023. Incision is healing well without surrounding erythema, induration, warmth, or drainage. Steri-Strips are placed and he can get the area wet with warm soapy water. Abduction pillow was removed today. He can work on pendulums, scapular squeezes, shoulder shrugs, and external rotation to neutral. He can also work on unrestricted elbow, wrist, hand range of motion to help reduce swelling. He was encouraged to wean to Advil and Tylenol as needed for pain. He will remain in the sling for the next 3 weeks until his next follow-up. He was given outpatient physical therapy prescription but understands his first PT appointment should be after his next follow-up with me. He will follow-up in 3 weeks with new right shoulder x-rays. Not available 06/18/2023 13:13:36 07/09/2023 [id number] xrays ordered an d obtained at [facility] of the right shoulder reveals hardware in good position. Tip presents today for follow up after right reverse TSA. He is about 4 weeks out of surgery. On exam he has no pain or weakness on bellypress test. We will have him D/C the sling starting today. He can start on unrestricted AROM for ADLs. He has his first PT appt set for next week. He will f/u with Dr. Baez in 2 months Not available 07/09/2023 12:52:45 09/10/2023 [id number] He presents toantony stein in follow-up for his right shoulder. He is 3 months out from a right reverse total shoulder. He seems to be doing well. He is having some pain at rest. He notes that when he was at a restaurant he was having pain after an extended period of time with sitting. I think this is coming from his cervical spine and he is going to match[employer] band back with his pain specialist to see if there is anything on his right side that might be causing pain into the right trapezius and shoulder blade. In the meantime I want to continue work on strengthening. His deltoid strength is actually fairly good but his external rotation strength is weak. I want to continue work on strengthening. I want his pain to go away. Normally I would see him about a year after surgery but since he still having some pain I would like to see him again in 3 months. He does not need x-rays at that point. He is also going to start physical therapy for both shoulders. [email or web address] Not available 09/10/2023 13:42:18 12/17/2023 [id number] He was doing wel l in physical therapy and able to bring his arm up over his head but he had a fall and injured his right shoulder. Since that time he has had pain. It looks like he has sprained his acromioclavicular joint. He has tenderness over the distal and the clavicle but is able to actively lift the arm. There is no tenderness around the scapula or proximal humerus and his x-rays look normal otherwise. I 1 continue work on unrestricted active range of motion. His neurologic symptoms seem to be improving as well. I am going to see him back in June for a final x-ray and final range of motion check. His active forward elevation is already better on his right than it is on his left. He is happy with the results otherwise. He understands that he should stay away from push-up activities until he is pain-free over the distal and the clavicle and then he can return to those activities. [email or web address] Not available 12/17/2023 13:52:43 02/29/2024 [id number] He is complainin g of recurrent pain in his right shoulder after a fall. The hardware is in unchanged position and he has no tenderness over the scapula. I think this is more of a neck related problem. He would like to try some physical therapy for the cervical spine. I think this will help. He has tried injections without any meaningful relief. The major message today is to try to prevent falls. If he can work on balance training that would be helpful to. I am going to leave follow-up open-ended otherwise. [email or web address] Not available 02/29/2024 15:04:44 Reason for Referral Physical Therapist Referral for Postoperative care Do not start shoulder PT until PO wk 4Immediate scapular isometricsNO PROM before PO wk 6After PO wk 6Unrestricted AROMRotator cuff isometricsBegin gentle PROMAfter PO wk 10Full rotator cuff and scapular strengthening program1-2 times a week for 8 weeks Referring Physician: Shahla Rothman, Orthopedic Surgery, Encounter Date: 06/18/2023 Physical Therapist Referral for History of reverse prosthetic total arthroplasty of right shoulder Bilateral shoulder strengtheningDeltoid and scapular strengtheningUnrestricted active, active assisted range of motionGentle passive range of motion1-2 times a week for 6 weeks Referring Physician: Chelsie Baez, Orthopedic Surgery, Encounter Date: 09/10/2023 Physical Therapist Referral for Cervical radiculopathy Cervical tractionNeck range of motionNeck isometricsScapular retractionScapular strengthening1-2 times a week for 6 weeks Referring Physician: Chelsie Baez, Orthopedic Surgery, Encounter Date: 02/29/2024 Results Created Date Observation Date Name Description Value Unit Range Abnormal Flag Note LastModifiedBy Organization Detail LastModifiedTime 05/26/20 23 05/26/2023 CT, shoul ramila, w/o contr ast RESPON SIBLE INTERP RETER: Dilip ponce M.D. EXAMIN ATION: CT SHOULD ER RIGHT WO CONTRA ST CLINIC AL INDICA TION: 77-yea r-old patien t with known right should er rotato r cuff tear. Right should er pain. TECHNI QUE: Contin uous axial images were obtain ed throug h the right should er joint on a multid etecto r CT scanne r withou t intrav enous contra st. 2-D sagitt al and campos l recons tructi ons were perfor med. Dose reduct ion techni que: iterat justin recons tructi on. COMPAR JONI: None FINDIN GS: BONES: Normal bone minera lizati on. No fractu re or destru ctive bone lesion s. There is an enthes ophyte arisin g from the distal right clavic le at the expect ed insert ion of the coraco clavic ular ligame nt. There is no fractu re or destru ctive bone lesion s within the right hemith orax. JOINTS : There are osteop hytes arisin g from the right mckayla l head. Subcho ndral cysts are noted within the glenoi d. Findin gs are in keepin g with mild osteoa rthrit is. There is modera te osteoa rthrit is of the right acromi oclavi cular joint charac terize d by subcho ndral cysts and caudal osteop hyte format ion. No destru ctive bony lesion s along the upper thorac ic spine. SOFT TISSUE S: Small amount of fluid noted within the subdel toid bursa. The known anteri or supras pinatu s rotato r cuff tear is not apprec iated on this CT with no intra- articu lar contra st. No soft tissue masses or adenop athy. There is a 2 mm nodule noted within the right lower lobe on series 4, image 189. No medias tinal lesion s or adenop athy. Normal calibe r aorta and pulmon kristin trunk. IMPRES KELY: Mild right glenoh umeral osteoa rthrit is. Modera te right acromi oclavi cular joint osteoa rthrit is. Small amount of fluid in the subdel toid bursa. The known anteri or supras pinatu s rotato r cuff tear is not apprec iated by CT withou t intra- articu lar contra st. 2 mm nodule right lower lobe. Non urgent chest CT is recomm ended for furthe r assess ment of the lungs. Dictat ed: 2022 1:00 PM Report ID: [id number] Exam perfor med at [facility]. Report signed in restaurant assistant manager al system at [facility] on 023 13:00 Report ed By: Dilip ponce M.D. (MARED ) Signed By: Dilip ponce M.D. (MARED ) [email or web address] [facility] (Imaging) [address] [place], [address], 05/26/2023 15:10:08 05/26/20 23 05/26/2023 CT, daija mcgrath, w/o contr ast No observ ation record ed. [facility] [address] [place] [address], [place], [address], 05/27/2023 08:54:14 06/04/20 23 05/21/2023 preop erati ve clear ance* No observ ation record ed. [email or web address] Not Available 07/10 11:43:14 06/04/20 23 11/07/2022 preop erati ve clear ance* No observ ation record ed. mikaela [facility] - [address], [address], 07/10/2023 11:43:31 06/09/20 23 06/09/2023 XR, daija mcgrath, 1 view PRELIM INARY INTERP RETATI ON - NOT A FINAL REPORT RESPON SIBLE INTERP RETER: Naman gomez M.D (resid ent) EXAMIN ATION: XR SHOULD ER 1 VW RIGHT CLINIC AL INDICA TION: Status post surger y TECHNI QUE: One view of the right should er. COMPAR JONI: 2022 FINDIN GS: The patien t is status post revers e should er arthro plasty with intact hardwa re. There is subcut aneous emphys shreyas and soft tissue swelli ng likely reflec ting recent surger y. IMPRES KELY: Status post revers e should er arthro plasty . Dictat ed: 2022 4:41 PM Report ID: [id number] Exam perfor med at [facility] al. Prelim inary result report ed in restaurant assistant manager al system at [facility] on 16:41 Report ed By: Naman gomez M.D (resid ent) (ACHOC ) [email or web address] [facility] (Imaging) [address] [facility], [place], [address], 06/10/2023 08:24:56 06/09/20 23 06/09/2023 XR, shoul ramila, 1 view RESPON SIBLE INTERP RETER: Abhijit Sanz M.D. EXAMIN ATION: XR SHOULD ER 1 VW RIGHT CLINIC AL INDICA TION: Status post surger y TECHNI QUE: One view of the right should er. COMPAR JONI: 2022 FINDIN GS: The patien t is status post revers e should er arthro plasty with intact hardwa re. Postop erativ e subcut aneous emphys shreyas and soft tissue swelli ng. IMPRES KELY: Status post revers e should er arthro plasty . I, the attend ing physic becky, attest that I have perfor med and/or superv ised the reside nt for the berkowitz and critic al compon ents of this proced ure. I have person ally review ed the images pertin ent to this examin ation and agree with the interp retati on. Dictat ed: 2022 4:50 PM Report ID: [id number] Exam perfor med at [facility] al. Report signed in restaurant assistant manager al system at [facility] on 16:50 Report ed By: Naman gomez M.D (resid ent) (ACHOC ) Signed By: Abhijit Sanz M.D. (DZARA [id number]) [facility] (Imaging) [address], [place], [address], 06/10/2023 08:24:56 07/09/20 23 shoul ramila RT No observ ation record ed. [address], [address] 07/09/2023 11:15:14 07/09/20 23 XR, shoul ramila, 2 or more view No observ ation record ed. [address], [address], 07/09/2023 11:14:38 09/10/20 23 shoul ramila RT No observ ation record ed. [address], [place], [address] 09/10/2023 13:13:34 09/10/20 23 XR, shoul ramila, 2 or more view No observ ation record ed. [facility] [address], [address], 09/10/2023 13:12:23 12/17/19 24 shoul ramila RT No observ ation record ed. [address], [address] 12/17/2023 13:34:55 12/17/19 24 XR, shoul ramila, 2 or more view No observ ation record ed. [address], [address], 12/17/2023 13:33:53 02/29/20 24 shoul ramila RT No observ ation record ed. [address], [address] 02/29/2024 14:48:59 02/29/20 24 XR, shoul ramila, 2 or more view No observ ation record ed. [address], [address], 02/29/2024 14:48:32 Result Notes None recorded. Procedures Surgical History Date Name Laterality Status Provider Name and Address Organization Details Recorded Time 03/02/20 [facility] Cervical Epidural Injection completed MONTY GUTIERRES MD [address] [place], [address], [facility] 03/02/2023 12:58:15 12/23/19 Ultrasound guided Joint injection (Left/Right) completed Shahla Rothman PA-C [address] [place], [address], [facility] 12/23/2022 11:29:29 10/17/20 Joint Replacement completed Porfirio Stoner [facility] 11/06/2022 13:58:05 05/27/20 21 Joint Replacement completed Porfirio Stoner [facility] 11/06/2022 13:59:31 06/16/20 16 Other completed Porfirio Stoner [facility] 02/19/2023 15:17:37 06/07/20 16 Joint Replacement completed Karan Corona [facility] 12/23/2022 08:42:45 11/02/19 16 primary fusion of cervical spine completed Christine Hobson [facility] 12/24/2022 11:36:14 Other completed Karan Corona [facility] 12/23/2022 08:42:45 arthroscopy of shoulder completed Porfirio Stoner [facility] 02/19/2023 15:19:04 prosthetic total arthroplasty of right shoulder completed Seth Milton [facility] 03/24/2023 10:47:41 Imaging Results Imaging Date Name Status LastModified by Organization Details LastModified Time 05/26/2023 CT, shoulder, w/o contrast completed [email or web address] [facility] (Imaging) [address] [facility], [place], [address], 05/26/2023 15:10:08 05/26/2023 CT, shoulder, w/o contrast completed [facility] [address] [facility] [address], [place], [address], 05/27/2023 08:54:14 05/21/2023 preoperative clearance* completed [email or web address] Information not available 07/10/2023 11:43:14 11/07/2022 preoperative clearance* [facility] [address], [address], 07/10/2023 11:43:31 06/09/2023 XR, shoulder, 1 view completed [email or web address] [facility] (Imaging) [address] [place] [address], [address], 06/10/2023 08:24:56 06/09/2023 XR, shoulder, 1 view completed [email or web address] [facility] (Imaging) [address] [place] [address], [address], 06/10/2023 08:24:56 07/09/2023 shoulder RT completed [email or web address] [facility] [address] [place] [address], [address] 07/09/2023 11:15:14 07/09/2023 XR, shoulder, 2 or more view completed [email or web address] [facility] - [address], [address], 07/09/2023 11:14:38 09/10/2023 shoulder RT completed [email or web address] [facility] [address] [place] [address], [address] 09/10/2023 13:13:34 09/10/2023 XR, shoulder, 2 or more view completed [email or web address] [facility] - [address], [address], 09/10/2023 13:12:23 12/17/2023 shoulder RT completed [email or web address] [facility] [address] [place] [address], [address] 12/17/2023 13:34:55 12/17/2023 XR, shoulder, 2 or more view completed [email or web address] [facility] - [address], [address], 12/17/2023 13:33:53 02/29/2024 shoulder RT completed [email or web address] [address], [place], [address] 02/29/2024 14:48:59 02/29/2024 XR, shoulder, 2 or more view completed [email or web address] [address], [address], 02/29/2024 14:48:32 Procedure Notes None recorded. Medical Equipment None Reported. Allergies Allergen ID Allergen Name Allergen Category Reaction Reaction Severity Criticality Documentation Date Start Date Code Code System Note Provider Name and Address Organization Details Recorded Time 090650 Product containin g penicilli n (product) medicatio n Not available Not available Not available 11/06/2022 95738 8001 SNOMED Porfirio salamanca [facility] 13:55:10 [id number] Substance with sulfonami de structure and antibacte rial mechanism of action (substanc e) medicatio n Not available Not available Not available 12/24/2022 29313 8003 SNOMED Christine salamanca [facility] 3 11:35:09 Medications Name Sig Start Date Stop Date Status Note LastModified by Organization Details LastModified Time doxycycline hyclate 100 mg capsule 06/16 completed Not Available Not Available Not Available clindamycin HCl 300 mg capsule Take 1 capsule every 6 hours by oral route. active Not Available Not Available No t Available ondansetron HCl 4 mg tablet TAKE 1 TABLET BY MOUTH EVERY 8 HOURS NEEDED FOR NAUSEA AND VOMITING 09/06 completed Not Available Not Available Not Available propranolol ER 60 mg capsule,24 hr,extended release TAKE 1 CAPSULE BY MOUTH EVERY DAY active Not Available Not Available No t Available ethacrynic acid 25 mg tablet TAKE 1 TABLET (25 MG TOTAL) BY MOUTH IN THE MORNING AND 1 TABLET (25 MG TOTAL) IN THE EVENING. 06/16 completed Not Available Not Available Not Available metolazone 5 mg tablet TAKE 1 TABLET (5 MG TOTAL) BY MOUTH 1 (ONE) TIME EACH DAY FOR 5 DAYS active Not Available Not Available No t Available triamcinolo ne acetonide 0.1 % topical cream USE ON ITCHY SKIN 1-2 TIMES DAILY. DO NOT USE ON FACE, ARMPITS, OR GROIN AREA. active Not Available Not Available No t Available bupropion HCl SR 100 mg tablet,12 hr sustained-r elease TAKE 1 TABLET BY MOUTH TWICE A DAY active Not Available Not Available No t Available oxycodone-a cetaminophe n 5 mg-325 mg tablet 06/16 completed Not Available Not Available Not Available hydromorpho ne 2 mg tablet TAKE 1-2 TABLET(S) BY MOUTH EVERY 4-6 HOURS NEEDED FOR PAIN 09/06 completed Not Available Not Available Not Available primidone 250 mg tablet 1 TABLET AT NOON AND 2 TABLETS AT BEDTIME active Not Available Not Available No t Available tamsulosin 0.4 mg capsule TAKE 1 CAPSULE BY MOUTH EVERY DAY 06/16 completed Not Available Not Available Not Available triamcinolo ne acetonide 0.1 % topical ointment PLEASE SEE ATTACHED FOR DETAILED DIRECTION S 06/16 completed Not Available Not Available Not Available propranolol ER 80 mg capsule,24 hr,extended release TAKE 1 CAPSULE BY MOUTH EVERY DAY 06/16 completed Not Available Not Available Not Available furosemide 20 mg tablet TAKE 1 TABLET (20 MG TOTAL) BY MOUTH ONE TIME EACH DAY active Not Available Not Available No t Available mirtazapine 15 mg tablet TAKE 1 TABLET BY MOUTH EVERYDAY AT BEDTIME active Not Available Not Available No t Available clobetasol 0.05 % topical ointment PLEASE SEE ATTACHED FOR DETAILED DIRECTION S 06/16 completed Not Available Not Available Not Available methylpredn isolone 4 mg tablets in a dose pack TAKE 6 TABLETS ON DAY 1 DIRECTED ON PACKAGE AND DECREASE BY 1 TAB EACH DAY FOR A TOTAL OF 6 DAYS 06/16 completed Not Available Not Available Not Available carbidopa 25 mg-levodopa 100 mg tablet TAKE 1/2 TABLET BY MOUTH 3 TIMES A DAY WITH MEALS FOR 2 WEEKS, THEN INCREASE TO 1 TAB 3 TIMES A DAY 06/16 completed Not Available Not Available Not Available hydroxyzine HCl 10 mg tablet TAKE 1 TABLET BY MOUTH 4 TIMES A DAY NEEDED FOR ITCH 06/16 completed Not Available Not Available Not Available clotrimazol e 1 % topical cream APPLY TO ITCHY RASH IN GROIN AREA 1-2 TIMES PER DAY NEEDED. MAY MIX WITH AVEENO OR VANICREAM active Not Available Not Available No t Available naproxen 500 mg tablet PLEASE SEE ATTACHED FOR DETAILED DIRECTION S 02/19 completed Not Available Not Available Not Available oxycodone 5 mg tablet TAKE 1 TABLET BY MOUTH TWICE A DAY NEEDED FOR PAIN 02/19 completed Not Available Not Available Not Available Restasis 0.05 % eye drops in a dropperette INSTILL 1 DROP INTO BOTH EYES TWICE A DAY active Not Available Not Available No t Available alfuzosin ER 10 mg tablet,exte nded release 24 hr TAKE 1 TABLET BY MOUTH EVERY OTHER NIGHT INSTRUCTE DJuwan STOP FLOMAX. active Not Available Not Available No t Available mirtazapine 7.5 mg tablet TAKE 1 TABLET BY MOUTH EVERYDAY AT BEDTIME 06/16 completed Not Available Not Available Not Available duloxetine 20 mg capsule,del ayed release TAKE 1 CAPSULE BY MOUTH TWICE A DAY 06/16 completed Not Available Not Available Not Available duloxetine 30 mg capsule,del ayed release TAKE 1 CAPSULE BY MOUTH EVERY DAY IN THE MORNING active Not Available Not Available No t Available duloxetine 60 mg capsule,del ayed release TAKE 1 CAPSULE BY MOUTH EVERY DAY IN THE EVENING active Not Available Not Available No t Available Aveeno Moisturizin g active Not Available Not Available Not Available propranolol 12/23 completed Not Available Not Available Not Available furosemide 12/23 completed Not Available Not Available Not Available clindamycin HCl 12/23 completed Not Available Not Available Not Available Mysoline 12/23 completed Not Available Not Available Not Available Cleocin 12/23 completed Not Available Not Available Not Available bupropion HCl 12/23 completed Not Available Not Available Not Available mirtazapine 06/16 completed Not Available Not Available Not Available Metamucil active Not Available Not Sofya ilable Not Available Aveeno 12/23 completed Not Available Not Available Not Available Miralax 12/23 completed Not Available Not Available Not Available Restasis 12/23 completed Not Available Not Available Not Available Uroxatral 12/23 completed Not Available Not Available Not Available Cymbalta 06/16 completed Not Available Not Available Not Available Dupixent 300 mg/2 mL subcutaneou s pen injector active Not Available Not Available Not Available BinaxNOW COVID-19 Ag Self Test kit USE DIRECTED 06/16 completed Not Available Not Available Not Available Dupixent 100 mg/0.67 mL subcutaneou s syringe Inject by subcutane ous route. 12/23 completed Not Available Not Available Not Available Vitals Date Recorded Body height Body mass index (BMI) Body weight Pain severity - 0-10 verbal numeric rating [Score] - Reported Provider Name and Address Organization Details Last Updated DateTime 06/18/2023 190.5 cm 21.9 kg/m2 82290.66 g 5 Christine Hobson [facility] 06/18/2023 11:28:36 Date Recorded Body height Body mass index (BMI) Body weight Pain severity - 0-10 verbal numeric rating [Score] - Reported Provider Name and Address Organization Details Last Updated DateTime 07/09/2023 190.5 cm 21.9 kg/m2 74069.66 g 3 Kamran Silva [facility] 07/09/2023 11:31:48 Date Recorded Body height Body mass index (BMI) Body weight Pain severity - 0-10 verbal numeric rating [Score] - Reported Provider Name and Address Organization Details Last Updated DateTime 09/10/2023 190.5 cm 21.9 kg/m2 96838.66 g 3 Porfirio Stoner [facility] 09/10/2023 13:12:38 Date Recorded Body height Body mass index (BMI) Body weight Pain severity - 0-10 verbal numeric rating [Score] - Reported Provider Name and Address Organization Details Last Updated DateTime 12/17/2023 190.5 cm 21.9 kg/m2 04112.66 g 6 Porfirio Stoner [facility] 12/17/2023 13:35:14 Date Recorded Body height Body mass index (BMI) Body weight Pain severity - 0-10 verbal numeric rating [Score] - Reported Provider Name and Address Organization Details Last Updated DateTime 02/29/2024 190.5 cm 21.9 kg/m2 71728.66 g 4 Porfirio Stoner [facility] 02/29/2024 14:48:30 Social History Question Answer Notes LastModified by Organizat ion Details LastModified Time Tobacco Smoking Status Never Smoker Porfirio salamanca [facility] 11/06/2022 13:54:59 What Is Your Level Of Alcohol Consumption? None [email or web address] Information not available 11/06/2022 Are You Deaf Or Do You Have Serious Difficulty Hearing? No [email or web address] Information not available 11/06/2022 Which Illicit Or Recreational Drugs Have You Used? 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 Right [email or web address] Information not available 11/06/2022 At What Age Did You Start Smoking Tobacco? Non-smoker [email or web address] Information not available 12/23/2022 How Much Tobacco Do You Smoke? No [email or web address] Information not available 11/06/2022 Sex: Unknown Functional Status Question Answer Note LastModified by Organization D etails LastModified Time What is your exercise level? Moderate Information not available 11/06/2022 Mental Status None recorded. Family History Relationship Description Onset Age of this Age Resolved Age Notes LastModified by Organization Details LastModified Time Paternal Grandfather Arthritis [email or web address] Not available 15:17:34 Brother Diabetes mellitus 67 [email or web address] Not available 2022 08:42:48 Maternal Grandfather Arthritis Not available 15:17:34 Medical History Condition Response Coronary Artery Disease N Gout N Dyslipidemia N Artificial Joints N Thyroid Problems N Lung Disease N Depression Y Pacemaker N Anemia N Back Pain N Hearing Impairment N Anesthesia Complications N Heart Attack ([place]) N Headaches/Migraines N Deep Vein Thrombosis N Anxiety Disorder N Diabetes N Bleeding Disorder N Arthritis Y Seizures/Epilepsy N Cardiac Stent N Blood Clot N Tuberculosis N AIDS/HIV N Inflammatory Bowel Disease N Acid Reflux (GERD) N Cancer N Stroke N Substance Abuse N Peripheral Vascular Disease N Asthma/COPD N Wears Glasses/Contacts N Hepatitis N Organ Transplant N Heart Disease N Rheumatoid Arthritis N Pulmonary Embolism N Fibromyalgia N Stomach Ulcer N Hypertension N Osteoporosis N Kidney Disease N Past Encounters Encounter ID Performer Location Encounter Start Date Encounter Closed Date Diagnosis/Indication Diagnosis SNOMED-CT Code Diagnosis ICD10 Code Diagnosis Note [id number] CHELSIE BAEZ MD [address] [address] 11/06/2022 13:43:20 11/06/2022 20:30:37 Cervical spondylosis 105095896 M47.812 Tendinitis of long head of biceps brachii of right shoulder 966348233 M75.21 Needs an intra-gabriel cular cortisone under ultrasound guidance right shoulder Full thick ness rotator cuff tear 429645935 M75.121 MRI of the right shoulder shows an obvious supraspina tus tear with small tear of the subscapula ris and significan t biceps tendinopat hy. Mild glenohumer al osteoarthr itis [id number] Shahla Rothman PA-C [facility] [address] [facility] [address] [place] [address] 12/23/2022 08:36:44 12/31/2022 15:45:52 Osteoarthritis of right glenohumeral joint 1649614604 020684 M19.011 [id number] MONTY MILLS MD [address] [address] 12/24/2022 11:28:40 12/24/2022 14:12:11 Lumbar radiculopathy 434619924 M54.16 [id number] MONTY MILLS MD [address] [address] 01/14/2023 16:48:40 01/14/2023 17:06:42 Lumbar radiculopathy 426194217 M54.16 [id number] MD NIKO MENDOZA [address] [address] 02/03/2023 09:53:02 02/13/2023 12:51:35 Lumbar radiculopathy 750756042 M54.16 [id number] MD NIKO MONROY [address] [address] 02/19/2023 14:32:41 02/19/2023 15:54:53 Rotator cuff arthropathy of right shoulder 9665021174 4034054 M25.811 Cervical radiculitis 110 [address] M54.12 [id number] MD NIKO MILLAN [address] [address] 03/02/2023 12:51:14 03/12/2023 14:26:06 Cervical radiculopathy 35860705 M54.12 [id number] MD NIKO MONROY [address] [address] 03/23/2023 16:10:22 03/30/2023 05:53:54 Rotator cuff arthropathy of right shoulder 3714075833 4663450 M25.811 [id number] MD NIKO MENDOZA [address],[facility] [address] [place] [address] 03/24/2023 09:50:19 04/01/2023 10:20:18 Muscle atrophy 53934572 M62.50 [id number] MD NIKO MONROY [address] [address] 06/08/2023 16:11:27 06/08/2023 17:25:24 Pruritic disorder 137059307 L29.9 Rotator cu ff tear arthropathy 269295757 M19.111 [id number] Shahla Rothman PA-C [address] [address] 06/18/2023 11:24:25 06/18/2023 12:19:56 Postoperative care 414934588 Z48.89 right reverse TSA 06/09/23 [id number] Shahla Rothman PA-C [address] [address] 07/09/2023 10:46:57 07/09/2023 11:45:04 Postoperative care 607426692 Z48.89 right reverse TSA 06/09/23 [id number] CHELSIE BAEZ MD [address] [address] 09/10/2023 12:36:50 09/10/2023 13:41:32 History of reverse prosthetic total arthroplasty of right shoulder 0044924512 0369847 Z96.611 [id number] MD NIKO MONROY [address] [address] 12/17/2023 13:25:26 12/23/2023 09:00:34 History of reverse prosthetic total arthroplasty of right shoulder 3967968497 7056621 Z96.611 Sprain of right acromioclavicular ligament 4303595680 9170662 S43.51XA [id number] MD NIKO MONROY [address] [address] 02/29/2024 14:01:02 02/29/2024 15:51:04 Pain of right shoulder joint 3502850638 2620428 M25.511 Cervical radiculitis 110 12781 M54.12 Cervical radiculopathy 02823351 M54.12 Health Concerns Section Related Observation LastModified by Organization Detai ls LastModified Time None Recorded Concern Status LastModified by Organization Details LastModified Time None Recorded Advance Directives Directive None Recorded Payers Encounter Date Sequence Insurance Name Policy Number Policy Mccullough Covered Member ID Mccullough Member ID Guarantor Name 06/18/2023 1 [place] [employer] Yogi N [place] [id number] Yogi [place] 06/18/2023 2 [place] [facility] [place] [id number] Yogi N [place] [id number] Yogi [place] 07/09/2023 1 [place] [employer] Yogi N [place] [id number] Yogi [place] 07/09/2023 2 [place] [facility] [place] [place] [id number] Yogi N [place] [id number] Yogi [place] 09/10/2023 1 [place] [employer] Yogi N [place] [id number] Yogi [place] 09/10/2023 2 [place] [facility] [place] [place] [id number] Yogi N [place] [id number] Yogi [place] 12/17/2023 1 [place] [employer] Yogi N [place] [id number] Yogi [place] 12/17/2023 2 [place] [facility] [place] [place] [id number] Yogi N [place] [id number] Yogi [place] 02/29/2024 1 [place] [employer] Yogi N [place] [id number] Yogi [place] 02/29/2024 2 [place] [facility] [place] [place] [id number] Yogi N [place] [id number] Yogi [place]aya Notes Date Note Type Note Provider Name and Address Organization Details Recorded Time 06/18/2023 text/html Chief complaint is right shoulder He presents today for follow-up after right shoulder surgery. Overall he is doing quite well without fever, chills, numbness, tingling, or burning sensations. Shahla Rothman PA-C [address] [place] [address], , [facility] 06/18/2023 13:13:47 07/09/2023 text/html CC: Right should er He presents today for follow up after right shoulder surgery. Overall he is doing well although he admits to some discomfort at night. Shahla Rothman PA-C [address] [place] [address], , [facility] 07/09/2023 12:52:59 09/10/2023 text/html CC: Right should er He presents today for follow up after right shoulder surgery. He is having less pain. He has pain after doing his exercises. He is also occasionally getting pain at rest. He has a history of cervical spine problems. CHELSIE BAEZ MD [address] [place] [address], , [facility] 09/10/2023 13:45:15 12/17/2023 text/html Chief complaint is right shoulder He returns in follow-up for his right shoulder. He had a right reverse total shoulder. He had been doing well until he was doing some balance activities and fell onto his right shoulder. Since that time he had an increase in his pain. He has not lost too much range of motion though. He has been able to do some of his exercises. Push-ups seem to bother him. CHELSIE BAEZ MD [address] [place], [place], , [facility] 12/17/2023 13:53:30 02/29/2024 text/html Chief complaint is right shoulder He returns again in follow-up for his right shoulder. He is complaining of pain after another fall. He initially had some black and blue across his back. He is having pain at rest. He has numbness and tingling. His shoulder pain starts in the shoulder and radiates down to the hand. CHELSIE BAEZ MD [address] [place] [address], [phone], [facility] 02/29/2024 15:06:12
--- OUTSIDE RECORDS SUMMARY | 2025-01-05 17:22 | XMS_ITS | Clinical Summary ---
Author Organization [facility] Address [address] [place] [address] Care Team Providers Care Paymaster Of Purses Name Role Phone Alanna Polanco darin Primary Care Provider Allergies Active Allergy Reactions Criticality Noted Date Comments Penicillins 2021 Medications Medication Sig Dispensed Refills Start Date End Date Status Acetaminophen 500 MG coapsule Take 1,000 mg by mouth. 0 10/17/2021 Active cycloSPORINE (RESTASIS) 0.05 % ophthalmic emulsion Restasis 0 Activ e celecoxib (CeleBREX) 200 MG capsule Take 200 mg by mouth daily. 0 11/13/2021 Active Cholecalciferol 25 MCG (1000 UT) capsule Take 1 capsule by mouth daily. 0 Active EPINEPHrine 0.3 MG/0.3ML SOAJ PLEASE SEE ATTACHED FOR DETAILED DIRECTIONS 0 11/29/2021 Active gabapentin (NEURONTIN) 100 MG capsule 0 12/05/2021 Active hydrOXYzine (ATARAX) 25 MG tablet TAKE 1 TABLET BY MOUTH 3 TIMES DAILY NEEDED FOR ITCHING. 0 11/29/2021 Active primidone (MYSOLINE) 250 MG tablet TAKE 1 TABLET BY MOUTH AT NOON AND 2 TABLETS AT 8PM (TOTAL 3 TABLETS DAILY) 0 11/12/2021 Active propranolol (INDERAL LA) 60 MG 24 hr capsule propranolol ER 60 mg capsule,24 hr,extended release TAKE 1 CAPSULE BY ORAL ROUTE ONCE A DAY (IN THE EVENING) 0 12/25/2014 Active tamsulosin (FLOMAX) 0.4 MG CAPS Take 0.4 mg by mouth daily. 0 11/22/2021 Active cetirizine (ZyrTEC) 10 MG tablet TAKE 1 TABLET BY MOUTH 2 TIMES A DAY FOR 30 DAYS. 60 tablet 0 01/01/2022 Active famotidine (PEPCID) 20 MG tablet TAKE 1 TABLET BY MOUTH 2 TIMES A DAY FOR 30 DAYS. 60 tablet 0 01/01/2022 Active Active Problems Problem Noted Date Diagnosed Date Essential tremor 12/07/2021 Status post replacement of left shoulder joint 0 12/07/2021 IBS (irritable bowel syndrome) 07/29/2018 Benign prostatic hyperplasia 12/09/2017 Patellofemoral pain syndrome 10/06/2011 Family History Medical History Relation Name Comments Alzheimer's disease Father Parkinsonism Father Parkinsonism Mother Relation Name Status Comments Father (Age 59) Mother Social History Tobacco Use Types Packs/Day Years Used Date Smoking Tobacco: Never Smokeless Tobacco: Never Alcohol Use Standard Drinks/Week Comments Never 0 (1 standard drink = 0.6 oz pur e alcohol) Sex and Gender Information Value Date Recorded Sex Assigned at Not on file Gender Identity Not on file Sexual Orientation Not on file Last Filed Vital Signs Vital Sign Reading Time Taken Comments Blood Pressure 120/70 2021 11:12 AM EST Pulse 64 2021 11:12 AM EST Temperature 37.1 ??C (98.7 ??F) 2021 11:[address] Respiratory Rate - - Oxygen Saturation 100% 2021 11:12 AM EST Inhaled Oxygen Concentration - - Weight 82.7 kg (182 lb 6.4 oz) 2021 11:12 AM EST Height 190.5 cm (6' 3 ) 2021 11:12 AM EST Body Mass Index 22.8 2021 11:12 AM EST Plan of Treatment Health Maintenance Due Date Last Done Comments Hepatitis C Screening 1945 Depression Screening 1958 Preventative Health Evaluation 1964 Fall Risk Assessment 2011 DTap / Tdap / Td (2 - Td or Tdap) 08/15/2021 08/15/2011 RSV Adult > 60+ Yrs or (1 - 1-dose 75+ series) 2021 COVID-19 Vaccine ( season) 2024 07/30/2021, 01/27/2021, 01/06/2021 Influenza Vaccine (#1) 2024 , 07/27/2020, 08/17/2019, Additional history exists Shingrix-Zoster Vaccine Completed 09/28/2019, 07/29 Pneumococcal Vaccine Completed 07/27/2020, 08/27/2015, 08/18/2012 Hepatitis B Vaccines Aged Out No long er eligible based on patient's age to complete this topic RSV Ped < 20 months Aged Out No longe r eligible based on patient's age to complete this topic Care Teams Paymaster Of Purses Relationship Specialty Start Date End Date Alanna Polanco [facility] [place] [address] PCP - General Internal Medicine 12/06/21
--- OUTSIDE RECORDS SUMMARY | 2025-01-05 17:22 | XMS_ITS | Encounter Summary ---
Author Organization [facility] Address [address] [place] [address] Care Team Providers Care Resource Efficiency Manager Name Role Phone Villa Uribe Primary Care Provider [phone] Reason for Visit * Reason Comments Skin Problem Follow up eczema/dup ixent * Dermatology (Routine) - Pending Review Specialty Diagnoses / Procedures Referred By Ozzie whiting Referred To Contact Dermatology Diagnoses 6 month follow up Procedures FOLLOW UP Villa Uribe [address] [place] [address] Phone: tel: fax: Romy Miller MD [address] [place] [address] Phone: tel: fax: Referral ID Status Reason Start Date Expiration Date V isits Requested Visits Authorized [id number] Pending Review 05/30/2024 11/29/2025 6 6 Encounter Details Date Type Department Care Team (Late st Contact Info) Description 12/26/2024 3:00 PM EST Follow-Up [facility] [address] [place] [address], [place] [id number] Soft Sugar Supervisor: Romy Perez MD [address] [place] [address] Intrinsic eczema (Primary Dx); Actinic keratosis; Tinea cruris; Cyst of skin Social History Tobacco Use Types Packs/Day Years Used Date Smoking Tobacco: Never Smokeless Tobacco: Never Tobacco Cessation:Counseling Given: Not Answered Sex and Gender Information Value Date Recorded Sex Assigned at Male 03/27/2022 10:34 AM EDT Legal Sex Male 11:33 AM EDT Gender Identity Male 03/27/2022 10:34 AM EDT Sexual Orientation Straight 03/27/2022 10 :34 AM EDT documented as of this encounter Progress Notes * Angela Rodriguez MD - 12/26/2024 3:29 PM EST DERMATOLOGY OFFICE VISIT CHIEF COMPLAINT: Eczema, pruritus HPI: Yogi Mcfarland is a 79 y.o. male who is seen in follow up at [facility] Department of Dermatology for eczema. Last visit 07/2023: - eczematous dermatitis: on dupilumab - tinea cruris: clotrimazole cream Today: - states that much of his itchiness is from nerve pain from the neck. He had a nerve ablation on the right side which worked well. They are waiting on authorization to get the left side done as well. - he continues on dupilumab every other week with good effect. states when she does in on his abdomen it tends to bubble up, so she has been doing thigh most recently which is better - he usees triamcinolone as needed for itchy rash that pops up on various areas of his body. They use it sparingly - he is getting slightly irritated under his urine catheter - he is following with pain specialist and mental health professional, and is given cymbalta which has been helpful SOCIAL HISTORY: presents with who helps in providing the history PAST DERMATOLOGIC HISTORY: chronic pruritus - on dupilumab bx c/w eczematous dermatitis MEDICATIONS, ALLERGIES, PAST MEDICAL HISTORY, FAMILY HISTORY and SOCIAL HISTORY All were reviewed in patient's chart. REVIEW OF SYSTEMS: Patient is feeling well and has no complaints other than those noted above. PHYSICAL EXAM: The patient is a well-appearing male in no distress with a pleasant mood. 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 Actinic keratoses, right cheek x 2 - We discussed that actinic keratoses are pre-cancerous spots, their etiology and course. - We discussed options for treatment and made a shared decision for cryotherapy. Destruction of Actinic Keratosis Procedure Note Informed Consent: Discussed risks (permanent scarring, light or dark discoloration, infection, pain, bleeding, bruising, redness, blister formation, and recurrence of the lesion) and benefits of the procedure, as well as the alternatives. Informed consent was obtained. Procedure Details: LN2 was applied to 2 lesion(s). The patient tolerated the procedure well. Plan: The patient was instructed on post-op care. 3. Cyst on left forearm - Start mupirocin (BACTROBAN) 2% ointment; Apply to cyst once daily and cover with bandage Dispense: 30 g; Refill: 0 - Asked them to let us know if not improving or if it gets larger or more inflamed We asked the patient to call us with any new or changing lesions, problems, or questions arising prior to the next visit. FOLLOW UP: Return in about 1 year (around 12/26/2025) for eczema. Patient reviewed with and plan agreed with Dermatology Attending Dr Kuldeep Mejia MD Dermatology Resident documented in this encounter Plan of Treatment Upcoming Encounters Date Type Department Care Team (Late st Contact Info) Description 01/01/2026 1:15 PM EST Follow-Up [facility] 4th Floor [address] [facility], [place] [address] Soft Sugar Supervisor: Romy Perez MD [address] [place] [address] documented as of this encounter Visit Diagnoses Diagnosis Intrinsic eczema- Primary Actinic keratosis Tinea cruris Dermatophytosis of groin and perianal area Cyst of skin Sebaceous cyst documented in this encounter Care Teams Resource Efficiency Manager Relationship Specialty Start Date End Date Christianoelham Villa [address] [place] [address] PCP - General Family Medicine 12/29/22 documented as of this encounter
--- OUTSIDE RECORDS SUMMARY | 2025-01-05 17:22 | XMS_ITS | Encounter Summary ---
Author Organization [facility] Address [address] [place] [address] Care Team Providers Care Commercial Property Administrator Name Role Phone Edin Rubalcava MD Primary Care Provider Encounter Details Date Type Department Care Team (Late st Contact Info) Description 12/09/2024 Lab Requisition [facility] - Main Lab [address] [place] [address] Minerva Piper NP [address] [facility] [address] [place] [address] Unspecified abnormal findings in urine Social History Tobacco Use Types Packs/Day Years Used Date Smoking Tobacco: Never Smokeless Tobacco: Never Alcohol Use Standard Drinks/Week Comments No 0 (1 standard drink = 0.6 oz pur e alcohol) Sex and Gender Information Value Date Recorded Sex Assigned at Not on file Legal Sex Male 4:04 PM EST Gender Identity Not on file Sexual Orientation Not on file documented as of this encounter Plan of Treatment Not on file documented as of this encounter Procedures Procedure Name Priority Date/Time Associated Diagnosis Comments CULTURE URINE Routine 12/09/2024 12:00 AM EST Unspecified abnormal findings in urine documented in this encounter Results * (ABNORMAL) Culture urine (12/09/2024 12:00 AM EST) Culture, Urine >100,000 CFU/mL Klebsiella pneumoniae ssp pneumoniae(A) MARIANO 12/13/2024 8:41 AM EST [facility] Comment: This is an edited result. Previous organism was Gram negative bacilli on 12/10/2024 at 0902 EST. Culture, Urine 10,000-49,000 CFU/mL Acinetobacter baumannii complex(A) MARIANO 12/13/2024 8:41 AM EST [facility] Comment: The organism value for this result has been updated. These results have been appended to the previously preliminary verified report. This is an edited result. Previous organism was Gram negative bacilli on 12/12/2024 at 0822 EST. Urine Urine specimen from urinary conduit / Unknown 12/09/2024 12/09/2024 6:48 PM EST Narrative Organism Antibiotic Method Susceptibility Klebsiella pneumoniae ssp pneumoniae Amoxicillin/Clavulanate MARIANO <=2 ug/ml: Susceptible Klebsiella pneumoniae ssp pneumoniae Ampicillin/Sulbactam MARIANO 4 ug/ml: Susceptible Klebsiella pneumoniae ssp pneumoniae Piperacillin/Tazobactam MARIANO <=4 ug/ml: Susceptible Klebsiella pneumoniae ssp pneumoniae Cefazolin (Urine) MARIANO 2 ug/ml: Susceptible Klebsiella pneumoniae ssp pneumoniae Cefoxitin MARIANO <=4 ug/ml: Susceptible Klebsiella pneumoniae ssp pneumoniae Ceftazidime MARIANO <=0.5 ug/ml: Susceptible Klebsiella pneumoniae ssp pneumoniae Ceftriaxone MARIANO <=0.25 ug/ml: Susceptible Klebsiella pneumoniae ssp pneumoniae Cefepime MARIANO <=0.12 ug/ml: Susceptible Klebsiella pneumoniae ssp pneumoniae Meropenem MARIANO <=0.25 ug/ml: Susceptible Klebsiella pneumoniae ssp pneumoniae Amikacin MARIANO <=1 ug/ml: Susceptible Klebsiella pneumoniae ssp pneumoniae Gentamicin MARIANO <=1 ug/ml: Susceptible Klebsiella pneumoniae ssp pneumoniae Ciprofloxacin MARIANO <=0.06 ug/ml: Susceptible Klebsiella pneumoniae ssp pneumoniae Levofloxacin MARIANO <=0.12 ug/ml: Susceptible Klebsiella pneumoniae ssp pneumoniae Nitrofurantoin MARIANO <=16 ug/ml: Susceptible Klebsiella pneumoniae ssp pneumoniae Trimethoprim/Sulfamethoxaz ole MARIANO <=20 ug/ml: Susceptible Acinetobacter baumannii complex Ampicillin/Sulbactam MARAINO <=2 ug/ml: Susceptible Acinetobacter baumannii complex Piperacillin/Tazobactam MARIANO 32 ug/ml: Intermediate Acinetobacter baumannii complex Ceftazidime MARIANO 16 ug/ml: Intermediate Acinetobacter baumannii complex Meropenem MARIANO <=0.25 ug/ml: Susceptible Acinetobacter baumannii complex Ciprofloxacin MARIANO 1 ug/ml: Susceptible Acinetobacter baumannii complex Levofloxacin MARIANO 0.5 ug/ml: Susceptible Acinetobacter baumannii complex Trimethoprim/Sulfamethoxaz ole MARIANO <=20 ug/ml: Susceptible us [address]a [address] [facility] MICROBIOLOGY - GENERA L ORDERABLES Final Result [facility] [address] [place] [address], documented in this encounter Visit Diagnoses Diagnosis Unspecified abnormal findings in urine documented in this encounter Care Teams Commercial Property Administrator Relationship Specialty Start Date End Date Edin Rubalcava MD [address] [place] [address] PCP - General 09/30/22 documented as of this encounter
--- OUTSIDE RECORDS SUMMARY | 2025-01-05 17:23 | XMS_ITS | Encounter Summary ---
Author Organization [facility] Address [address] [place] [address] Care Team Providers Care Student Records Coordinator Name Role Phone Villa Uribe Primary Care Provider [phone] Reason for Visit * Reason Onset Date Comments CS- appointment 01/16/2023 Encounter Details Date Type Department Care Team (Late st Contact Info) Description 01/16/2023 Telephone [facility] [address] [place] [id number] Telephone Intake, Staff CS- appointment Social History Tobacco Use Types Packs/Day Years Used Date Smoking Tobacco: Never Smokeless Tobacco: Never Sex and Gender Information Value Date Recorded Sex Assigned at Male 03/27/2022 10:34 AM EDT Legal Sex Male 11:33 AM EDT Gender Identity Male 03/27/2022 10:34 AM EDT Sexual Orientation Straight 03/27/2022 10 :34 AM EDT documented as of this encounter Miscellaneous Notes * Telephone Encounter - Deann Delgado - 01/16/2023 1:16 PM EDT Pt calling, scheduled for 03/[address] Miller. He is having a flare up of his itchy skin. Please call pt back to schedule sooner appt if possible documented in this encounter Plan of Treatment Upcoming Encounters Date Type Department Care Team (Late st Contact Info) Description 01/01/2026 1:15 PM EST Follow-Up [facility] [address] [place] [address], [place] [phone] Supervisor Chassis Assembly: Romy Perez MD [address] [place] [id number] documented as of this encounter Visit Diagnoses Not on filedocumented in this encounter Care Teams Student Records Coordinator Relationship Specialty Start Date End Date Villa Uribe [address] [place] [address] PCP - General Family Medicine 12/29/22 documented as of this encounter
--- OUTSIDE RECORDS SUMMARY | 2025-01-05 17:23 | XMS_ITS | Clinical Summary ---
Author Organization [address] Address [address] [place] [phone] Phone Care Team Providers Care Cotton Tipper Name Role Phone Edin Rubalcava MD Primary Care Provider Allergies Active Allergy Reactions Criticality Noted Date Comments Clindamycin Hcl Diarrhea 08/11/2011 Penicillin G Potassium 11/20/2005 Other Reaction(s): Hives/Urticaria Sulfamethoxazole-Trimethopr im 02/01/2018 Burning/itching sensation in calves Medications alfuzosin (UROXATRAL) 10 mg 24 hr tablet Take 1 Tablet by mouth every other day. Prescribed by dr CHRISTIAN Active DULoxetine (CYMBALTA) [address] capsule Take 1 Capsule by mouth 2 times daily. Prescriber from [facility] Active mirtazapine (REMERON) 15 mg tablet Take 1 Tablet by mouth daily. Active buPROPion SR (WELLBUTRIN SR) 100 mg 12 hr tablet Take 1 Tablet by mouth daily. Active dupilumab (Dupixent Pen) 300 mg/2 mL pen Inject 1 Dose as directed every 14 days. At [facility] register of wills for itching Active naproxen (NAPROSYN) 500 mg tablet Take 1 Tablet by mouth [address] Wolf at [facility] Takes once a day Active acetaminophen (TYLENOL) 500 mg tablet Take 1 Tablet by mouth every 6 hours as needed. Active clindamycin (CLEOCIN) 300 mg capsule Take 1 Capsule by mouth Once. Take half an hour prior to dental work when needed Active furosemide (LASIX) 20 mg tablet TAKE 1 TABLET BY MOUTH EVERY DAY Active triamcinolone (KENALOG) 0.1 % cream Apply 4g Active EPINEPHrine (EpiPen 2-Robert) 0.3 mg/0.3 mL injection Inject 0.3 mg into the muscle as needed for Other (anaphylactic reaction). Fill with whichever brand is covered by insurance. Active primidone (MYSOLINE) 250 mg tablet Take 250 mg by mouth 2 times daily. 1 tablet at noon and 2 at 8 pm Active cycloSPORINE 0.05 % drops 1 Drop 2 times daily. Active propranolol LA (Inderal LA) 60 mg 24 hr capsule Take 60 mg by mouth daily. Active Active Problems Problem Noted Date Diagnosed Date Anemia 09/17/2022 Hyponatremia 09/17/2022 Mild Alzheimer's dementia with mood disturbance 09/17/2022 Edema 07/15/2022 Overview (10/21/2024): Unclear etiology so far - followed by [facility] Moderate episode of recurrent major depressive d isorder 01/06/2022 Actinic keratosis 09/11/2021 Eczema 09/11/2021 IBS (irritable bowel syndrome) 07/29/2018 Benign prostatic hyperplasia 12/09/2017 Cervical spondylosis 09/29/2017 Overview (10/21/2024): Significant at all levels Colon adenoma 08/24/2014 Overview (10/21/2024): 2/14; Juan Alberto, Tubular Adenoma; Repeat 2019 Derangement of lateral meniscus 10/30/2011 Patellofemoral pain syndrome 10/06/2011 Infected sebaceous cyst 08/11/2011 Diverticulosis 09/13/2008 Rosacea 07/28/2006 Spasm of muscle 07/28/2006 Overview (10/21/2024): Fab Encounters Date Type Department Care Team Description 12/09/[address] [facility] - Main Lab [address] [facility] [place] [address] Minerva Piper NP Unspecified abnormal findings in urine from Last 3 Months Immunizations Name Administration Dates Next Due Influenza trivalent, 0.5mL ( Fluad) 65yo and older 07/08/2022,07/30/2021,07/27/2020,08/17,08/27/2018,07/22/2017,07/28/2016 ,08/27/2015,08/24/2014,08/22/2013,08/02,08/15/2011,08/13/2010, 9 Influenza trivalent, 0.5mL, preservative free (Fluarix; FluLaval; Fluzone) ages 6mo and older (Afluria) 3 years and older 08/03/2008 Pfizer SARS-CoV-2 COVID-19, mRNA, LNP-S, preservative free 07/30/2021,01/27/2021,01/06/2021 Pneumococcal conjugate 13 va lent (Prevnar 13, PCV13) 2mo and older 07/27/2020,08/27/2015 Pneumococcal polysaccharide 23 valent (Pneumovax 23) 2yo and older 08/18/2012 Td Tetanus diptheria (Tdvax) 7yo and older 09/04/2006,11/02/1995 Tdap Tetanus diptheria acell ular pertussis (Boostrix; Adacel) 7yo and older 08/15/2011 Zoster Live 08/15/2010 Zoster recombinant (Shingrix ) 19yo and older 09/28/2019,07/29/2019 Surgical History Surgery Date Site/Laterality Comments KNEE ARTHROSCOPY W/ DEBRIDEMENT PROCEDURE: SC ARTHRS KNEE DEBRIDEMENT/SHAVING ARTCLR CRTLG; COMMENT: 1984; 2011 Right (Mindess) OTHER SURGICAL HISTORY PROCEDURE: SC PARTICAL EXCISION BONE PHALANX TOE; COMMENT: Right Great toe OTHER SURGICAL HISTORY 08/2008 PROCEDURE: PROSTATE SPEC. AG, SCREEN; COMMENT: 3.7 OTHER SURGICAL HISTORY 05/2008 PROCEDURE: SC OPH SVCS MEDICAL XM&EVAL COMPRE EST PT 1/>VST; COMMENT: [place]; cataract COLONOSCOPY 09/2003 PROCEDURE: SC COLONOSCOPY STOMA DX INCLUDING COLLJ SPEC SPX; COMMENT: Juan Alberto; Up to cecum, well prepared colonn, tics; rpt 10 y COLONOSCOPY W/ POLYPECTOMY 12/23/2013 PROCEDURE: SC COLSC FLX W/RMVL OF TUMOR POLYP LESION SNARE TQ; COMMENT: adenoma and tics; repeat in 5 yrs NECK SURGERY PROCEDURE: HISTORICAL NECK SURGERY; COMMENT: auto fusion C5-6, stand alone graft C 4-5 SHOULDER SURGERY 07/20/2018 Right PROCEDURE: HISTORICAL SHOULDER SURGERY; COMMENT: Dr. Alec Daniels, [place]. Labral tear, adhesion, partial cuff tear, impingement CATARACT EXTRACTION 2018 PROCEDURE: HISTORICAL CATARACT REMOVAL; COMMENT: Kristen TOTAL KNEE ARTHROPLASTY 05/28/2021 Right PROCEDURE: SC ARTHRP KNE CONDYLE&PLATU MEDIAL&LAT COMPARTMENTS; COMMENT: Kelly. Ortiz total knee replacement Medical History Medical History Date Comments Diverticulitis of colon (wit hout mention of hemorrhage)(562.11) DX:Diverticulitis of co lalit (without mention of hemorrhage)(562.11) Spasm of muscle 07/28/2006 DX:Spasm of musc le Rosacea 07/28/2006 DX:Rosacea Diverticulosis 09/13/2008 DX:Diverticulosi s Cervical spondylosis 09/29/2017 DX:Cervical spondylosis; COMMENT: Significant at all levels IBS (irritable bowel syndrome) 07/29/2018 D X:IBS (irritable bowel syndrome) Medical marijuana use DX:Medical marijuana use Eczema 09/11/2021 DX:Eczema Actinic keratosis 09/11/2021 DX:Actinic ker atosis Benign prostatic hyperplasia 12/09/2017 DX: Benign prostatic hyperplasia Colon adenoma 08/24/2014 DX:Colon adenoma ; COMMENT: 12/16; Juan Alberto, Tubular Adenoma; Repeat 2019 Derangement of lateral meniscus 10/30/2011 DX:Derangement of lateral meniscus Patellofemoral pain syndrome 10/06/2011 DX: Patellofemoral pain syndrome S/P cervical spinal fusion 12/30/2016 DX:S/ P cervical spinal fusion; COMMENT: Dr Vasquez 06/2016 C4-5 Edema DX:Edema; COMMEN T: Unclear etiology so far - followed by [facility] Family History Medical History Relation Name Comments Other: Parkinsonism Father Alzheime r's; age 59 Other cancer Maternal Grandmother Other: Parkinson plus Mother Cortic obasal ganglion degeneration Relation Name Status Comments Father Maternal Grandmother Mother Social History Tobacco Use Types Packs/Day Years Used Date Smoking Tobacco: Never Smokeless Tobacco: Never Alcohol Use Standard Drinks/Week Comments No 0 (1 standard drink = 0.6 oz pur e alcohol) Sex and Gender Information Value Date Recorded Sex Assigned at Not on file Legal Sex Male 4:04 PM EST Gender Identity Not on file Sexual Orientation Not on file Obstetrics History Last Filed Vital Signs Vital Sign Reading Time Taken Comments Blood Pressure 108/58 10/21/2022 2:06 PM EST Pulse 88 10/21/2022 2:06 PM EST Temperature - - Respiratory Rate - - Oxygen Saturation - - Inhaled Oxygen Concentration - - Weight 81.7 kg (180 lb 3.2 oz) 10/21/2022 2:06 P M EST Height 190.5 cm (6' 3 ) 09/17/2022 10:31 AM EST Body Mass Index 22.52 09/17/2022 10:31 AM EST Plan of Treatment Health Maintenance Due Date Last Done Comments DTaP,Tdap,and Td Vaccines (4 - Td or Tdap) 08/15/2021 08/15/2011, 09/04/2006, 11/02/1995 RSV Immunization Patients 60+ Years Old (1 - 1-dose 75+ series) 2021 Colorectal Cancer Screening: Colonoscopy 10/10/2022 Depression Screening 10/10/2022 Falls Risk Assessment 10/10/2022 Medicare Annual Wellness Visit 10/10/2022 Social Influencers of Health Screening 10/10/2022 COVID-19 Vaccine ( season) 2024 07/30/2021, 01/27/2021, 01/06/2021 Influenza Vaccine (#1) 2024 , 07/08/2022, 07/30/2021, Additional history exists Cholesterol Screening (Lipid Panel) 10/03/2024 10/03/2019 Hepatitis C Screening Completed 08/22/2013 Zoster Vaccines Completed 09/28/2019, 07/04, 08/15/2010 Pneumococcal Vaccine: 50+ Years Completed 07/27/2020, 08/27/2015, 08/18/2012 HIB Vaccines Aged Out No longer eligi ble based on patient's age to complete this topic HPV Vaccines Aged Out No longer eligi ble based on patient's age to complete this topic Hepatitis A Vaccines Aged Out No long er eligible based on patient's age to complete this topic Hepatitis B Vaccines Aged Out No long er eligible based on patient's age to complete this topic IPV Vaccines Aged Out No longer eligi ble based on patient's age to complete this topic MMR Vaccines Aged Out No longer eligi ble based on patient's age to complete this topic Meningococcal ACWY Vaccine Aged Out N o longer eligible based on patient's age to complete this topic Meningococcal B Vacine Aged Out No lo nger eligible based on patient's age to complete this topic RSV Immunization Patients Under 20 months Aged Out No longer eligible based on patient's age to complete this topic Varicella Vaccines Aged Out No longer eligible based on patient's age to complete this topic Procedures Procedure Name Priority Date/Time Associated Diagnosis Comments CULTURE URINE Routine 12/09/2024 12:00 AM EST Unspecified abnormal findings in urine LIPID PANEL Routine 10/03/2019 HM HEPATITIS C SCREENING Routine 08/22/2013 from Last 3 Months or Most Recently Relevant to Health Maintenance Results * (ABNORMAL) Culture urine (12/09/2024 12:00 AM EST) Culture, Urine >100,000 CFU/mL Klebsiella pneumoniae ssp pneumoniae(A) MARIANO 12/13/2024 8:41 AM EST [facility] Comment: This is an edited result. Previous organism was Gram negative bacilli on 12/10/2024 at 0902 EST. Culture, Urine 10,000-49,000 CFU/mL Acinetobacter baumannii complex(A) MARIANO 12/13/2024 8:41 AM EST [facility] Comment: The organism value for this [...] <=20 ug/ml: Susceptible Acinetobacter baumannii complex Ampicillin/Sulbactam MARIANO <=2 ug/ml: Susceptible Acinetobacter baumannii complex Piperacillin/Tazobactam MARIANO 32 ug/ml: Intermediate Acinetobacter baumannii complex Ceftazidime MARIANO 16 ug/ml: Intermediate Acinetobacter baumannii complex Meropenem MARIANO <=0.25 ug/ml: Susceptible Acinetobacter baumannii complex Ciprofloxacin MAIRANO 1 ug/ml: Susceptible Acinetobacter baumannii complex Levofloxacin MARIANO 0.5 ug/ml: Susceptible Acinetobacter baumannii complex Trimethoprim/Sulfamethoxaz ole MARIANO <=20 ug/ml: Susceptible Minerva Piper NP LAB MICROBIOLOGY - GENERA L ORDERABLES Final Result [facility] [address] [place] [address], * Lipid panel (10/03/2019) Pathologist [facility] LDL/HDL Ratio 2 0 - 4 Triglycerides 59 0 - 150 mg/dL Cholesterol 137 0 - 200 mg/dL HDL 72 >=40 mg/dL LDL Cholesterol 54 0 - 100 mg/dL Blood Venous blood specimen / Unknown Historical Provider LAB BLOOD ORDERABLES Mariluz l Result * Hepatitis C Screening (08/22/2013) Pathologist [facility] Hepatitis C Screening Abstracted Historical Provider HEALTH MAINTENANCE Final Result from Last 3 Months or Most Recently Relevant to Health Maintenance Insurance MEDICARE [facility] Advance Directives Documents on File Type Date Recorded Patient 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 Production Engineer Expl anation Health Care Decision (hx) 12/11/2011 AD CARDONA DIRECTIVE Health Care Decision (hx) 12/11/2011 AD CARDONA DIRECTIVE Health Care Decision (hx) 12/11/2011 AD CARDONA DIRECTIVE Health Care Decision (hx) 12/11/2011 AD CARDONA DIRECTIVE Health Care Decision (hx) 12/11/2011 AD CARDONA DIRECTIVE Health Care Decision (hx) 12/11/2011 AD CARDONA DIRECTIVE Health Care Decision (hx) 12/11/2011 AD CARDONA DIRECTIVE Health Care Decision (hx) 12/11/2011 AD CARDONA DIRECTIVE Health Care Decision (hx) 12/11/2011 AD CARDONA DIRECTIVE Health Care Decision (hx) 12/11/2011 AD CARDONA DIRECTIVE Health Care Decision (hx) 12/11/2011 AD CARDONA DIRECTIVE Health Care Decision (hx) 12/11/2011 AD CARDONA DIRECTIVE Health Care Decision (hx) 12/11/2011 AD CARDONA DIRECTIVE Health Care Decision (hx) 12/11/2011 AD CARDONA DIRECTIVE Health Care Decision (hx) 12/11/2011 AD CARDONA DIRECTIVE Health Care Decision (hx) 12/11/2011 AD CARDONA DIRECTIVE Care Teams Cotton Tipper Relationship Specialty Start Date End Date Edin Rubalcava MD [address] [place] [id number] PCP - General 09/30/22
--- OUTSIDE RECORDS SUMMARY | 2025-01-05 17:23 | XMS_ITS | Clinical Summary ---
Author Organization [facility] Address [address] [place] [address] Care Team Providers Care Analytical Sciences Director Name Role Phone Villa Uribe Primary Care Provider [phone] Allergies Active Allergy Reactions Criticality Noted Date Comments Clindamycin Diarrhea 08/11/2011 Lactose Diarrhea 09/08/2022 Penicillins Hives 2021 Other reaction(s): as a child, hives Sulfamethoxazole-Trimethopr im Hives 02/01/2018 Burning/itching sensation in calves Medications acetaminophen (TYLENOL) 500 mg tablet Take 1,000 mg by mouth. 10/17/20 21 Active cycloSPORINE (RESTASIS) 0.05% ophthalmic emulsion Every 12 hours, 0 Refills, Maintenance, 10/16/21 11:54:00 EST, Partial fill upon patient request if the prescription is for a schedule II opioid drug. 10/16/20 21 Active psyllium (METAMUCIL) 3.4 gram packet See Instructions, PRN as needed for constipation, 1.7 Gm By Mouth 3 times a day, 0 Refills, Maintenance, 10/16/21 11:55:00 EST, REC Powder, Partial fill upon patient request if the prescription is for a schedule II opioid drug. 10/16/20 21 Active primidone (MYSOLINE) 250 mg tablet TAKE 1 TABLET BY MOUTH AT NOON AND 2 TABLETS AT 8PM (TOTAL 3 TABLETS DAILY) 05/16/20 22 Active Wellbutrin SR 100 mg tablet SMARTSI Tablet(s) By Mouth Twice Daily 01/31/[address] (CYMBALTA) 30 mg capsule duloxetine 30 mg capsule,delayed release TAKE 1 CAPSULE BY MOUTH TWICE A DAY 08/11/20 22 Active furosemide (LASIX) 20 mg tablet daily. 08/11/20 22 Active Refresh Optive 0.5-0.9 % drops SMARTSI Drop(s) In Eye(s) PRN 12/05/19 23 Active alfuzosin (UROXATRAL) 10 mg 24 hr tablet daily. 08/13/20 22 Active triamcinolone acetonide (KENALOG) 0.1% creamIndicatio ns:Pruritus,Ch ronic eczema Use on itchy skin 1-2 times daily. Do not use on face, armpits, or groin area. 454 g 5 05/05/20 23 Active dupilumab (Dupixent Pen) 300 mg/2 mL pen injectionIndic ations:Chronic eczema,Pruriti c condition Inject 2 mL (300 mg total) under the skin every 14 days. 4 mL 5 5 7:26 AM EST 09/07/20 24 Active clotrimazole (LOTRIMIN) 1% creamIndicatio ns:Tinea cruris APPLY TO ITCHY RASH IN GROIN AREA 1-2 TIMES PER DAY NEEDED. MAY MIX WITH AVEENO OR VANICREAM 45 g 4 11/18/19 25 Active clindamycin (CLEOCIN) 300 mg capsule Take 1 Capsule by mouth Once. Take half an hour prior to dental work when needed Active colloidal oatmeaL 1 % cream Active Proscar 5 mg tablet 10/17/20 24 Active HYDROmorphone (DILAUDID) 2 mg tablet SMARTSI Tablet(s) By Mouth Every 6 Hours PRN Active mupirocin (BACTROBAN) 2% ointmentIndica tions:Cyst of skin Apply to cyst once daily and cover with bandage 30 g 12/26/19 25 Active psyllium husk 0.4 gram capsule Metamucil 025 Discontinued propranoloL (INDERAL) 60 mg tablet Take 60 mg by mouth. 025 Discontinued tamsulosin (FLOMAX) 0.4 mg capsule tamsulosin 0.4 mg capsule TAKE 1 CAPSULE BY MOUTH EVERY DAY 11/22/19 22 025 Discontinued psyllium (Metamucil Fiber Singles) 3.4 gram packet See Instructions, PRN as needed for constipation, 1.7 Gm By Mouth 3 times a day, 0 Refills, Maintenance, 10/16/21 11:55:00 EST, REC Powder, Partial fill upon patient request if the prescription is for a schedule II opioid drug. 10/16/20 21 025 Discontinued mirtazapine (REMERON) 15 mg tablet Take 15 mg by mouth. 06/16/20 22 025 Discontinued Active Problems Problem Noted Date Diagnosed Date Skin eruption 07/11/2022 Generalized edema 03/04/2022 Cervical disc disorder 03/03/2022 Essential tremor 12/07/2021 Status post replacement of left shoulder joint 0 12/07/2021 Irritable bowel syndrome 07/29/2018 Benign prostatic hyperplasia 12/09/2017 Patellofemoral pain syndrome 10/06/2011 Encounters Date Type Department Care Team Description 12/26/2024 3:00 PM EST Follow-Up [facility] 4th Floor [address] [facility], [place] [address] Bow Maker Production: Romy Perez MD Intrinsic eczema (Primary Dx); Actinic keratosis; Tinea cruris; Cyst of skin 11/16/2024 Refill [facility] 2nd Floor [address] [facility], [place] [address] Bow Maker Production: Romy Perez MD Tinea cruriwilla from Last 3 Months Immunizations Immunization Administration Dates Next Due Covid-19, Pfizer, mRNA, [place] valent, PF 30 mcg/0.3 mL dose (for ages 12 and older) 07/30/2021 Pneumococcal Conjugate Vaccine, 13 Valent 2019,08/27/2015 Pneumococcal Polysaccharide Vaccine, 23 Valent 1 Tetanus Toxoid, Reduced Diph theria Toxoid, and Acellular Pertussis Vaccine, Adsorbed 08/15/2011 Zoster Vaccine, Live 08/15/2010 Social History Tobacco Use Types Packs/Day Years Used Date Smoking Tobacco: Never Smokeless Tobacco: Never Tobacco Cessation:Counseling Given: Not Answered Sex and Gender Information Value Date Recorded Sex Assigned at Male 03/27/2022 10:34 AM EDT Legal Sex Male 11:33 AM EDT Gender Identity Male 03/27/2022 10:34 AM EDT Sexual Orientation Straight 03/27/2022 10 :34 AM EDT Plan of Treatment Upcoming Encounters Date Type Department Care Team (Late st Contact Info) Description 01/01/2026 1:15 PM EST Follow-Up [facility] 4th Floor [address] [facility], [place] [phone] Bow Maker Production: Romy Perez MD [address] [place] [address] Health Maintenance Due Date Last Done Comments Hepatitis C Screening 1945 Medicare AWV 1946 RSV Vaccine (60+ years old and patients) (1 - 1-dose 75+ series) 2021 Alcohol/Substance Use Screening 11/02/2024 Depression Screening and Follow-Up 11/02/2024 Health Care Proxy Review 11/02/2024 Social Drivers of Health Annual Screening 11/02/2024 COVID-19 Vaccine ( season) 2025 07/14/2024, 08/10/2023, 09/30/2022, Additional history exists DTaP,Tdap,and Td Vaccines (3 - Td or Tdap) 01/06/2033 01/06/2023, 08/15/2011, 09/04/2006, Additional history exists Zoster Vaccines Completed 09/28/2019, 07/04, 08/15/2010 Pneumococcal Vaccine: 50+ Years Completed 07/27/2020, 08/27/2015, 08/18/2012 Influenza Vaccine Completed 07/14/2024, , 07/08/2022, Additional history exists Hepatitis B Vaccines Aged Out No long er eligible based on patient's age to complete this topic Insurance MEDICARE [facility] Care Teams Analytical Sciences Director Relationship Specialty Start Date End Date Villa Uribe [address] [place] [address] PCP - General Family Medicine 12/29/22
--- OUTSIDE RECORDS SUMMARY | 2025-01-05 17:23 | XMS_ITS | Referral Summary ---
Author Organization [facility] Address [address] [place] [address] Care Team Providers Care Cane Flume Watcher Name Role Phone Villa Uribe Primary Care Provider [phone] Encounters Date Type Department Care Team Description 12/26/2024 3:00 PM EST Follow-Up [facility] 4th [address] [place] [address], [place] [phone] Sanitation Engineer: Romy Perez MD Intrinsic eczema (Primary Dx); Actinic keratosis; Tinea cruris; Cyst of skin 11/16/2024 Refill [facility] 2nd Floor [address] [facility], [place] [address] Sanitation Engineer: Romy Perez MD Tinea cruris from Last 3 Months Allergies Active Allergy Reactions Criticality Noted Date Comments Clindamycin Diarrhea 08/11/2011 Lactose Diarrhea 09/08/2022 Penicillins Hives 2021 Other reaction(s): as a child, hives Sulfamethoxazole-Trimethopr im Hives 02/01/2018 Burning/itching sensation in calves Medications acetaminophen (TYLENOL) 500 mg tablet Take 1,000 mg by mouth. 10/17/20 Active cycloSPORINE (RESTASIS) 0.05% ophthalmic emulsion Every [...] 1 CAPSULE BY MOUTH EVERY DAY 11/22/19 025 Discontinued psyllium (Metamucil Fiber Singles) 3.4 gram packet See Instructions, PRN as needed for constipation, 1.7 Gm By Mouth 3 times a day, 0 Refills, Maintenance, 10/16/21 11:55:00 EST, REC Powder, Partial fill upon patient request if the prescription is for a schedule II opioid drug. 10/16/20 025 Discontinued mirtazapine (REMERON) 15 mg tablet Take 15 mg by mouth. 06/16/20 025 Discontinued Active Problems Problem Noted Date Diagnosed Date Skin eruption 07/11/2022 Generalized edema 03/04/2022 Cervical disc disorder 03/03/2022 Essential tremor 12/07/2021 Status post replacement of left shoulder joint 0 12/07/2021 Irritable bowel syndrome 07/29/2018 Benign prostatic hyperplasia 12/09/2017 Patellofemoral pain syndrome 10/06/2011 Immunizations Immunization Administration Dates Next Due Covid-19, Pfizer, mRNA, [place] valent, PF 30 mcg/0.3 mL dose (for [...] Info) Description 01/01/2026 1:15 PM EST Follow-Up [facility] 4th Floor [address] [facility], Fourth [place] [address] Sanitation Engineer: Romy Perez MD [address] [place] [address] Insurance MEDICARE [facility] Care Teams Cane Flume Watcher Relationship Specialty Start Date End Date Villa [place] [address] PCP - General Family Medicine 12/29/22
--- OUTSIDE RECORDS SUMMARY | 2025-01-05 17:23 | XMS_ITS | Continuity of Care Document ---
Author Organization [facility] Address [address] [place] [id number] Care Team Providers Care Block Machine Operator Name Role Phone Villa Uribe MD [id number] Date[facility]s): [facility]/08/24 - 12/11/[address] [address] Attending Physician: Villa Uribe MD Admitting Physician: Villa Uribe MD Referring Physician: Jose Plata MD Encounter Type: Pre-OutPatient One Time Allergies, Adverse Reactions, Alerts Substance Criticality Severity Reaction Reaction Severity Status penicillins as a child, hives Active Lactose Active sulfa drugs 1 Active 1Rash Immunizations Given and Recorded Vaccine [...] virus vaccine, inactivated 08/03/08 Zachariah rded SARS-CoV-2(COVID-19)mRNA-LNP vac([id number]) 07/14/24 Recorded SARS-CoV-2(COVID-19)mRNA-LNP vac([id number]) 08/10/23 Recorded tetanus/diphtheria/pertussis, acel(Tdap) 01/06/23 Given tetanus/diphtheria/pertussis, acel(Tdap) 08/15/11 Recorded [id number] 12y+ bivalent booster vax 09/30/22 Recorded SARS-CoV-2 [...] Team Personnel Name: Heather Johnson RN Position: [facility] SN RN Member Role: Primary Care Nurse Name: Falguni Velasquez Position: [facility] Outreach Member Role: Lifetime Consulting Physician Name: Kirill Zuluaga RN Position: [facility] RN Member Role: Primary Care Nurse Name: Jacques White MD Position: [facility] Outreach Member Role: Lifetime Consulting Physician Address: [address] [facility], [place] [address]- [employer] [employer]: Name: Nitesh Delacruz MD Position: [facility] Renal MD Member Role: Lifetime Consulting Physician Address: [address] [facility] [place] [address]- [place] [employer]: Name: Villa Uribe MD Position: [facility] Physician - Primary Care Member Role: PCP Address: [address] [place] [address] Telecom: Name: Devorah Mcnally RN Position: [facility] RN Member Role: Primary Care Nurse Care Team Related Persons Name: KRISTOPHER SALAZAR Name: GARRETT SALAZAR Insurance Providers Guarantor name: DALIA [facility] Health Plan Information #: 2 Payer: O [employer] Member Number: [id number] Policy Number: NA Group Number: [id number] Health Plan Information #: 1 Payer: MEDICARE PART B OUTPT Member Number: [id number] Policy Number: NA Group Number: NA
--- OUTSIDE RECORDS SUMMARY | 2025-01-05 17:23 | XMS_ITS | Data Portability ---
Author Organization [facility] [employer] Address [address] [place] [address] [place] [address] Care Team Providers [facility] Manager Name Role Phone CHARLETTE SEGURA Primary Care Provider CHARLETTE SEGURA Referring Provider CHARLETTE SEGURA Primary Care Provider [phone] Assessment Encounter Date Assessment Date Assessment LastModified by Organization Details LastModified Time 09/17/2021 09/17/2021 IMPRESSION: Essential tremor, with partial benefit of primidone and propranolol, but with residual tremor affecting daily activities. Tremor is adequately controlled. No medication change indicated. He is currently under the care of [facility] and has had a recent right total knee replacement in May 2021 and has an upcoming left reverse shoulder replacement shoulder on October 15, 2021. He is currently on celecoxib for associated arthritic pain. To review, we have reached the limits of his current medications, higher dose causes side effects. He confirms during this visit that there has been no significant change since April 2020. There is no known drug interactions between celecoxib and primidone. As noted previously: Retrial of clonazepam or trial of zonisamide remains in reserve. We (patient and Dr Gotti) discussed that we ([facility]) favor retrial of clonazepam as opposed to moving toward alprazolam, as the dependency characteristics are more favorable for clonazepam. He understands. Right finger flexion tremor with gait was not seen. There was some right hand tremor when his hand is on the arm of the chair but not when it is on the lab. Likely this is overflow of his essential tremor. Right sided finger tapping that I saw November 2017 is now resolved. (residual right digit 4 distal finger flexion mild weakness has previously been seen relating to 2016 C4-C5 surgery for spinal cord compression). PLAN Yogi Mcfarland April 03, 2020 CONTINUE Propranolol ER 60 mg capsule, one capsule every evening 1-2 hours before bedtime CONTINUE Primidone 250 mg tablets, one tablet Noon, 2 tablets 8pm CONTINUE home exercises learned from physical therapy to maintain the full strength in her limbs that has emerged with this intervention. Followup in 11 months, or earlier with neurological concerns We were joined in the telemetry visit by Dr. Gotti, plan was developed with him. I reviewed the presentation. I agree with Beulah Mitchell [facility] on impression and plan. Fabricio Gotti MD, PhD neurology mrossen Not available 09/18/2021 20:15:24 12/09/2021 12/09/2021 IMPRESSION: --Burning, itching rash starting November 11, 2021, ~3 weeks after left shoulder surgery with implanted metal, partially better with Sarna from dermatology, again partially better with Zyrtec and famotidine from hematology/allergi st, with blood work pending from hematology/allergi st, including for metals. --Essential tremor, with partial benefit of primidone and propranolol, but with residual tremor affecting daily activities. BURNING ITCHING RASH I do not believe there is a neurological component. I believe the nerves are normal, responding to irritation relating to allergy. Data comes first from the medications that have helped: Sarna, Zyrtec and famotidine can all help for an allergic skin condition but none of them have known benefit for neuropathic pain. Also, a foreign body in his left upper extremity is a risk for allergic reaction. 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 If this is a neuropathy, then it is a small fiber neuropathy given the burning and itching and given the regions involved. The typical diagnostic direction would be skin biopsy. I believe the likelihood of small fiber neuropathy is so low that skin biopsy is not indicated. I will defer to the other specialists involved from dermatology, hematology and allergy. TREMOR Tremor is adequately controlled. No medication change indicated. To review, we have reached the limits of his current medications, higher dose causes side effects. There has been no significant change since April 2020. As noted previously: Retrial of clonazepam or trial of zonisamide remains in reserve. He has been in favor retrial of clonazepam as opposed to moving toward alprazolam, as the dependency characteristics are more favorable for clonazepam. He understands. PREVIOUS DISCUSSION Right finger flexion tremor with gait has been seen historically. Likely this is overflow of his essential tremor. Residual right digit 4 distal finger flexion mild weakness has previously been seen relating to 2016 C4-C5 surgery for spinal cord compression. PLAN Yogi Mcfarland December 09, 2021 CONTINUE Propranolol ER 60 mg capsule, one capsule every evening 1-2 hours before bedtime CONTINUE Primidone 250 mg tablets, one tablet Noon, 2 tablets 8pm CONTINUE home exercises learned from physical therapy to maintain the full strength in her limbs that has emerged with this intervention. Followup in all already in place, August 19, 2020 with Beulah diez Not available 12/09/2021 15:39:13 Plan of Treatment Reminders Order Date Submit Date Provider Last Modified By Organization Details Last Modified Time Details Appointments None recorded. Lab None recorded. Referral None recorded. Procedures None recorded. Surgeries None recorded. Imaging None recorded. Medication Orders primidone 250 mg tablet 2020 021 [facility]armacy #[id number], [address], [place], [address], 10:38:33 propranolol ER 60 mg capsule,24 hr,extended release 2020 021 [facility]armacy #[id number], [address], [place], [address], 10:37:37 Patient TargetsNo targets recorded. Patient Instructions Encounter Date Encounter Id Patient Instructions Last Modified By Organization Details Last Modified Time 09/17/2021 [id number] PREVIOUS MEDICATION Clonazepam 0.5 mg pills, inconclusive trial October 2015 as he remembered no details at November 2015 office visit. Topamax 50 mg twice a day--no help for tremor and discontinued shortly after trial November 2014 Propranolol 10 mg 3 times a day: Tremor worsened compared to 20 mg 3 times a day November 2014 PREVIOUS DISCUSSIONS 04/03/20 Encounter interval hx (...)He reports no new medical conditions or changes in medications from other medication providers since the Cymbalta he started for his upper back/shoulder and posterior neck pain. I did not ask in particular whether the Cymbalta has been discontinued. IMPRESSION: His strength is full. CK and aldolase are unrevealing. Neither myopathy nor aggressive neuropathy explains his weakness presentation at December 2019 neurology office encounter. The diagnosis for his weakness on exam at that time is therefore deconditioning from this systemic issues that caused his headaches and truncal pain coming back from his trip August 2020. I cannot explain those symptoms from a neurological perspective. These symptoms are past, however. I defer to primary care for any further assessment that might be indicated. 2018: He brings up concerned about Alzheimer? s disease? his father had it. He is nonspecific word retrieval issues do not suggest this. They do suggest mild cognitive impairment to the extent that it bothers him. There is no effect on ADLs. We will watch. I reassured him on this. 2018: He brings up concerned about parkinsonism? his father had nonspecific parkinsonism along with Alzheimer? s disease; his mother had cortical basal degeneration. In 2018, I had mentioned these as possible very early harbingers of Parkinson? s disease (at this early stage, cortical basilar degeneration is also in the differential as it is also one-sided; he does not have alien limb symptoms. Only a small minority of Parkinson? s disease and cortical basal disease individuals have familial correlation). We discussed DATSCAN and he decided against it. [email or web address] Not available 09/17/2021 12:18:59 12/09/2021 [id number] PREVIOUS MEDICATION Clonazepam 0.5 mg pills, inconclusive trial October 2015 as he remembered no details at November 2015 office visit. Topamax 50 mg twice a day--no help for tremor and discontinued shortly after trial November 2014 Propranolol 10 mg 3 times a day: Tremor worsened compared to 20 mg 3 times a day November 2014 PREVIOUS DISCUSSIONS 04/03/20 Encounter interval hx (...)He reports no new medical conditions or changes in medications from other medication providers since the Cymbalta he started for his upper back/shoulder and posterior neck pain. I did not ask in particular whether the Cymbalta has been discontinued. IMPRESSION: His strength is full. CK and aldolase are unrevealing. Neither myopathy nor aggressive neuropathy explains his weakness presentation at December 2019 neurology office encounter. The diagnosis for his weakness on exam at that time is therefore deconditioning from this systemic issues that caused his headaches and truncal pain coming back from his trip August 2020. I cannot explain those symptoms from a neurological perspective. These symptoms are past, however. I defer to primary care for any further assessment that might be indicated. 2018: He brings up concerned about Alzheimer? s disease? his father had it. He is nonspecific word retrieval issues do not suggest this. They do suggest mild cognitive impairment to the extent that it bothers him. There is no effect on ADLs. We will watch. I reassured him on this. 2018: He brings up concerned about parkinsonism? his father had nonspecific parkinsonism along with Alzheimer? s disease; his mother had cortical basal degeneration. In 2018, I had mentioned these as possible very early harbingers of Parkinson? s disease (at this early stage, cortical basilar degeneration is also in the differential as it is also one-sided; he does not have alien limb symptoms. Only a small minority of Parkinson? s disease and cortical basal disease individuals have familial correlation). We discussed DATSCAN and he decided against it. [email or web address] Not available 12/09/2021 15:08:33 Reason for Referral None Reported. Problems Name Problem SNOMED Code Status Onset Date Resolution Date Notes Provider Name and Address Organization Details Recorded Time Essential tremor 727081450 Active 021 G25 Lynn Yanely [facility] 10:12:44 Problem Notes None recorded. Procedures Surgical History Date Name Laterality Status Provider Name and Address Organization Details Recorded Time 12/09/2021 DATA REVIEW completed Erick Gotti MD [address] [place] [address] [place], [phone], [facility] [employer] 12/09/2021 15:08:33 09/17/2021 DATA REVIEW completed BEULAH MITCHELL PA-C [address] [place] [address] [place], [phone], [facility] [employer] 09/17/2021 11:23:58 Imaging Results None recorded. Procedure Notes None recorded. Medical Equipment None Reported. Medications Name Sig Start Date Stop Date Status Note LastModified by Organization Details LastModified Time celecoxib 200 mg capsule TAKE 1 CAPSULE BY MOUTH EVERY DAY active Not Available Not Available No t Available clindamycin HCl 300 mg capsule active Not Available Not Available Not Available trazodone 50 mg tablet TAKE 1 TABLET BY MOUTH EVERYDAY AT BEDTIME active Not Available Not Available No t Available cetirizine 10 mg tablet TAKE 1 TABLET BY MOUTH 2 TIMES A DAY FOR 30 DAYS. active Not Available Not Available No t Available aspirin 325 mg tablet DIRECTED TAKE 1 TABLET BY MOUTH DAILY FOR 14 DAYS BEGINNING THE DAY AFTER SURGERY. active Not Available Not Available No t Available prednisone 20 mg tablet TAKE 2 TABLETS BY MOUTH EVERY DAY DIRECTED FOR 5 DAYS active Not Available Not Available N ot Available propranolol ER 60 mg capsule,24 hr,extended release TAKE 1 CAPSULE BY MOUTH EVERY DAY IN THE EVENING active Not Available Not Available No t Available triamcinolon e acetonide 0.1 % topical cream APPLY TO AFFECTED AREA 3 TIMES A DAY active Not Available Not Available Not Available famotidine 20 mg tablet TAKE 1 TABLET BY MOUTH 2 TIMES A DAY FOR 30 DAYS. active Not Available Not Available No t Available primidone 250 mg tablet TAKE 1 TABLET BY MOUTH AT NOON AND 2 TABLETS AT 8PM (TOTAL 3 TABLETS DAILY) active Not Available Not Available No t Available aspirin 325 mg tablet,delay ed release active Not Available Not Available N ot Available tamsulosin 0.4 mg capsule TAKE 1 CAPSULE BY MOUTH EVERY DAY active Not Available Not Available No t Available diazepam 2 mg tablet TAKE 1 TABLET UP TO THREE TIMES A DAY NEEDED FOR MUSCLE SPASM active Not Available Not Available No t Available pantoprazole 40 mg tablet,delay ed release TAKE 1 TABLET BY MOUTH EVERY DAY STARTING AFTER SURGERY active Not Available Not Available No t Available docusate sodium 100 mg capsule TAKE 1 CAPSULE BY MOUTH UP TO TWICE DAILY NEEDED FOR CONSTIPATIO N WHILE TAKING NARCOTIC MEDS active Not Available Not Available No t Available hydroxyzine HCl 25 mg tablet TAKE 1 TABLET BY MOUTH 3 TIMES DAILY NEEDED FOR ITCHING. active Not Available Not Available No t Available furosemide 20 mg tablet TAKE 1 TABLET BY MOUTH EVERY DAY active Not Available Not Available No t Available gabapentin 100 mg capsule TAKE 1 CAPSULE BY MOUTH THREE TIMES A DAY active Not Available Not Available Not Available epinephrine 0.3 mg/0.3 mL injection, auto-injecto r PLEASE SEE ATTACHED FOR DETAILED DIRECTIONS active Not Available Not Available N ot Available oxycodone 5 mg tablet TAKE 1 TABLET BY MOUTH 4 TIMES A DAY NEEDED FOR SEVERE PAIN active Not Available Not Available No t Available Restasis 0.05 % eye drops in a dropperette active Not Available Not Available Not Available Senna Plus 8.6 mg-50 mg tablet active Not Available Not Available Not Available duloxetine 20 mg capsule,ledy yed release TAKE 1 CAPSULE BY MOUTH 2 TIMES DAILY FOR 30 DAYS. active Not Available Not Available No t Available Pain Relief Extra Strength (acetaminoph en) 500 mg tablet DIRECTED TAKE 2 TABLETS BY MOUTH EVERY 8 HOURS AROUND THE CLOCK FOR PAIN. active Not Available Not Available No t Available Vitals None Recorded Social History None recorded. Functional Status None recorded. Mental Status None recorded. Family History Nothing Reported. Medical History No medical history recorded. Past Encounters Encounter ID Performer Location Encounter Start Date Encounter Closed Date Diagnosis/Indication Diagnosis SNOMED-CT Code Diagnosis ICD10 Code Diagnosis Note [id number] Erick Gotti MD [facility] [address] [place] [address] [place] [address] 09/17/2021 10:11:27 09/17/2021 12:36:09 Tremor [id number] R25.1 [id number] Erick Gotti MD [facility] [address] [place] [address] [place] [id number] 12/09/2021 14:43:19 12/09/2021 17:41:02 Tremor [id number] R25.1 Health Concerns Section Related Observation LastModified by Organization Detai ls LastModified Time None Recorded Concern Status LastModified by Organization Details LastModified Time None Recorded Advance Directives Directive None Recorded Payers Encounter Date Sequence Insurance Name Policy Number Policy Mccullough Covered Member ID Mccullough Member ID Guarantor Name 09/17/2021 2 [place] [facility] [id number] Yogi N [facility] [id number] Yogi N [facility] 09/17/2021 1 [place] [employer] Yogi N Kathieire [id number] Yogi N [facility] 12/09/2021 2 [place] [id number] Yogi N Blakeire [id number] Yogi N [facility] 12/09/2021 1 [place] Yogi N Bruna [id number] Yogi Sadler Bruna Notes Date Note Type Note Provider Name and Address Organization Details Recorded Time 09/17/2021 text/html 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 He is right-handed. Past history includes 2016 C4-5 surgery for cord compression, with Dr. Vasquez (to prevent morbidity; finding was asymptomatic found in MRI shoulder for shoulder pain). He remains with unchanging right sided digit 4 weakness after that surgery; thumb weakness after surgery remains resolved. He is eating via telemetry. He is located in his [place] and provider is located in the office. His is in the background and assists with confirming medications but we did not formally meet on the video. Since his 04/11/2020 neurology encounter, he had total knee replacement surgery with Dr. Jose Luis Mason at [facility] on May 28. He has a left reverse shoulder replacement upcoming on October [address] Devorah Wolf, also of [facility]. He states that his tremors are about the same as they were when he was last seen in April 2020. Left side is worse than the right. He would not be able to write if he was left-handed and sometimes does have difficulty on the right side. He has trouble holding a glass or utensils. He does not feel that there is significant change. He continues propranolol 60 mg ER once daily and primidone 250 mg 1 tablet at noon and 2 at 8 PM. His only new medication is celecoxib which he has been taking since his right knee replacement in May.We reviewed his additional medications which he has been taking for some time (at least prior to his last encounter in April 2020)TamsulosinResta sis for dry eyeCannabis tincture for sleep for many years Presenting symptomatology was reviewed from initial consultation October 20, 2014: He has had tremor of his hands, left greater than right, since he was a young child. His tremor affects his ability to build models. It has always affected his handwriting. He started primidone and propranolol for his tremor. He then went off the medications sometime in the , and several years later restarted the medications. The medications help his tremor significantly, but only partially. He has been on the medication so long that he does not remember specifically the partial benefit of either propranolol or primidone independent of one another. His remembers that he had initial tiredness and reduced appetite on one or both of the medications when he started them. He does not recall this. In any case, he notices no current side effects.His tremor continues to be a problem for him in daily activities, despite the partial benefit of propranolol and primidone. Writing is difficult; his does the writing when possible. His hand shakes when he uses utensils or drinks a glass of liquid. Occasionally he spells. He finds this embarrassing. Tremor is worse if he is tired. However, if he does mild extended exercise such as walking, sometimes his tremor is actually better. He reports no problems with walking--no imbalance, no worsening of gait, no stiffness or shuffling. He is training to walk marathon. He gets to sleep easily and reports no restless legs. His has never noticed any thrashing or shouting when he sleeps. His mood is good. His memory is good. He reports no hallucinations. His sense of smell is good. Neither he nor his has noticed that his voice has gotten softer or his face appearance has changed. 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 He is right-handed. Past history includes 2016 C4-5 surgery for cord compression, with Dr. Vasquez (to prevent morbidity; finding was asymptomatic found in MRI shoulder for shoulder pain). He remains with unchanging right sided digit 4 weakness after that surgery; thumb weakness after surgery remains resolved. He is eating via telemetry. He is located in [facility] and provider is located in the office. His , Yamileth. is in the background and assists with confirming medications but we did not formally meet on the video. Since September 17, 2021 neurology follow-up encounter with LOLY Galarza, his left side predominant action tremor has stayed well controlled, about the same they were and he has continued on propranolol 60 mg ER once a day and primidone 250 mg at noon and 2 tablets at 8 PM. He has no emerging side effects from these medications. He has a new problem however:He had shoulder surgery October 17, 2021 and that went without complication. His shoulder pain has been much better although not completely gone since then. Rehab was going well through November 11, 2021 when he noticed some itching in his forearm where his arm was laying against a pillow within the sling that he wears. At first, there was thought that there was irritation around the pillow. However, there has been slow extension throughout his body of the discomfort and transformation of the discomfort to a more painful burning together with the itching. The extension has been bilateral and symmetric, first to his chest and then his upper back and subsequently to his buttocks and thighs. Both arms are now involved.He has sought dermatology consultation. They did blood work which was unrevealing and prescribed [id number] Sarna lotion. He uses this every 2 hours and it works for 2 hours to reduce the burning and itching from unbearable to anywhere between two and 7/10 intensity. He has then had consultation December 04, with hematology. They, in consultation with an an/ssn 2 4 operator, prescribed Zyrtec and famotidine, antihistamines focusing on different receptors. He started those two additional medications on Thursday and since then he has had additional although still partial improvement. Hematology has done blood work, including for metals given that one change has been a new metal in his body from the shoulder surgery. That blood work is pending. There has been no change in his laundry detergent or soap and he has used Dove for years. Presenting symptomatology was reviewed from initial consultation October 20, 2014: He has had tremor of his hands, left greater than right, since he was a young child. His tremor affects his ability to build models. It has always affected his handwriting. He started primidone and propranolol for his tremor. He then went off the medications sometime in the , and several years later restarted the medications. The medications help his tremor significantly, but only partially. He has been on the medication so long that he does not remember specifically the partial benefit of either propranolol or primidone independent of one another. His remembers that he had initial tiredness and reduced appetite on one or both of the medications when he started them. He does not recall this. In any case, he notices no current side effects.His tremor continues to be a problem for him in daily activities, despite the partial benefit of propranolol and primidone. Writing is difficult; his does the writing when possible. His hand shakes when he uses utensils or drinks a glass of liquid. Occasionally he spells. He finds this embarrassing. Tremor is worse if he is tired. However, if he does mild extended exercise such as walking, sometimes his tremor is actually better. He reports no problems with walking--no imbalance, no worsening of gait, no stiffness or shuffling. He is training to walk marathon. He gets to sleep easily and reports no restless legs. His has never noticed any thrashing or shouting when he sleeps. His mood is good. His memory is good. He reports no hallucinations. His sense of smell is good. Neither he nor his has noticed that his voice has gotten softer or his face appearance has changed. Erick Gotti MD [address] [place] [address] [place], [phone], [facility] 12/09/2021 15:39:55
[2025-01-05 18:15] LABS: Anion Gap 12 (12-20); Blood Urea Nitrogen 24 mg/dL (9-16); Carbon Dioxide 27 mmol/L (22-29); Chloride 100 mmol/L (96-108); Estimated Glomerular Filt Rate > 60; Potassium 4.7 mmol/L (3.3-5.1); Sodium 134 mmol/L (135-145)
== END 2025-01-05 14:10 | disposition home or self-care (01) ==
LOC: HO.HKASLDS 14:09
PROVIDERS: Visit Provider Internal Medicine Nephrology
DX: E87.1 Hypo-osmolality and hyponatremia (principal); R60.9 Edema, unspecified
CPT/HCPCS: 36415; 80051; 82565; 84520

== ENCOUNTER 2025-01-12 09:56 | Outpatient (AMB) | payer MEDICARE, BC, SELFPAY ==
--- NOTE | 2025-01-12 10:07 | HO.NEPHOV_ITS ---
Vital Signs 01/12/25 10:10 Height 6 ft 3 in Weight 178 lb 2 oz BMI 22.3 BP 100/52 L Blood Pressure Location Lt brachial Position Sitting Pulse 79 Pulse Source Pulse Oximeter Pulse Oximetry (%) 99 Oxygen Delivery Method Room Air Intake Visit Reasons: 6 mon follow up-Conf Key Bed Installer Required: No Accompanied by: Spouse Allergies Penicillins Allergy (Mild, Verified 01/12/25 10:10) Unknown sulfa drugs Allergy (Mild, Uncoded 01/21/24 10:11) Unknown HPI Comments Details: 78-year-old gentleman whom I had the privilege in seeing in follow-up for edema and H/O hyponatremia. He had shoulder surgery on the left in October 2021. Following this, he had developed body rash as well as generalized edema. 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 Subsequently he underwent right shoulder surgery as well. There was no concrete reason identified for his edema. He was treated with Lasix with improvement. He has no history of any renal function or liver function abnormality. He denies shortness of breath, paroxysmal nocturnal dyspnea, orthopnea. He is going to have prostate surgery tomorrow [facility] Surgical History History of right shoulder replacement (~06/2023) Social History Alcohol intake: never Patient Tobacco Use Status: Never used Tobacco Review of Systems Const All systems reviewed & are unremarkable except as noted in HPI and below Physical Exam Vital Signs: Last Vital Signs Pulse 79 01/12/25 10:10 BP 100/52 L 01/12/25 10:10 Pulse Ox 99 01/12/25 10:10 Oxygen Delivery Method Room Air 01/12/25 10:10 BMI result Body Mass Index 22.3 Const General: comfortable and no acute distress Orientation/consciousness: patient oriented x3 HEENT Head: Yes normocephalic Mouth: Normal oral and palatal mucosa present Eyes EOM: EOMs intact bilaterally Neck Neck: Yes supple Resp Auscultation: clear to auscultation bilaterally Cardio Jugular venous distension: no JVD Rate: regular rate GI Palpation (GI): Soft to palpation Auscultation: normal bowel sounds Skin General skin exam: no rashes or lesions noted Neuro General: patient oriented x3 and moves all extremities Extrem General: Yes no pedal edema Results Reviewed Nephrology Results: Sodium 134 mmol/L (135-145) L 01/05/25 Potassium 4.7 mmol/L (3.3-5.1) 01/05/25 Chloride 100 mmol/L (96-108) 01/05/25 Carbon Dioxide 27 mmol/L (22-29) 01/05/25 BUN 24 mg/dL (9-16) H 01/05/25 Creatinine 0.92 mg/dL (0.5-1.4) 01/05/25 Calcium 8.7 mg/dL (8.4-10.2) 01/19/24 Urine Creatinine 54.29 mg/dL 07/05/24 Protein/Creatinin Ratio TNP 07/05/24 Assessment & Plan Assessment & Plan (1) Hyponatremia: Code(s): E87.1 - Hypo-osmolality and hyponatremia Category: Medical (2) Edema: Code(s): R60.9 - Edema, unspecified Category: Medical Qualifiers: Edema type: unspecified Qualified Code(s): R60.9 - Edema, unspecified Plan Tip had edema, etiology of which was never determined. He had seen multiple specialists. His urine protein creatinine ratio was unremarkable. He was treated with diuretics. His renal functions on normal. His serum sodium is acceptable. He is going to be on fluid restriction. He does not consume excess sodium in the diet. His lungs were clear. His liver functions are normal. His serum albumin was never too low. He had echocardiogram. Currently he is euvolemic on the current dose of diuretics. I did not make any medication changes today. Answered all questions Orders: Orders Creatinine 8 Months E87.1 - Hypo-osmolality and hyponatremia, R60.9 - Edema, unspecified Protein Creatinine Ratio, Ur 8 Months E87.1 - Hypo-osmolality and hyponatremia, R60.9 - Edema, unspecified Blood Urea Nitrogen 8 Months E87.1 - Hypo-osmolality and hyponatremia, R60.9 - Edema, unspecified Electrolytes 8 Months E87.1 - Hypo-osmolality and hyponatremia, R60.9 - Edema, unspecified Coding Level of Care Code Est Pt Level 4 (36754) Diagnoses Hyponatremia E87.1 Edema, unspecified type R60.9 Edema type: unspecified
[2025-01-12 10:10] VITALS: BP 100/52; PULSE 79; O2SAT 99; BMI 22.3
--- OUTSIDE RECORDS SUMMARY | 2025-01-12 12:17 | XMS_ITS | Encounter Summary ---
Author Organization [facility] Address [address] [place] [address] Care Team Providers Care Oreman Name Role Phone iVlla Uribe Primary Care Provider [phone] Reason for Visit * Reason Comments Skin Problem Follow up eczema/dup ixent * Dermatology (Routine) - Pending Review Specialty Diagnoses / Procedures Referred By Ozzie whiting Referred To Contact Dermatology Diagnoses 6 month follow up Procedures [place] [address] Phone: tel: fax: Romy Miller MD [address] [place] [phone] Phone: tel: fax: Referral ID Status Reason Start Date Expiration Date V isits Requested Visits Authorized [id number] Pending Review 05/30/2024 11/29/2025 6 6 Encounter Details Date Type Department Care Team (Late st Contact Info) Description 12/26/2024 3:00 PM EST Follow-Up [facility] [address]th [address] [place] [address], [place] [phone] Belt Conveyor Drier: Romy Perez MD [address] [place] [id number] Intrinsic eczema (Primary Dx); Actinic keratosis; Tinea [...] as of this encounter Progress Notes * Romy Miller MD - 01/09/2025 10:46 PM EDT I saw and evaluated the patient in person. Case discussed with the resident and I agree with the findings and plan as documented in the resident's note. Romy Miller MD, [facility] D[facility]at[facility] * Angela Rodriguez MD - 12/26/2024 3:29 PM EST DERMATOLOGY OFFICE VISIT CHIEF COMPLAINT: Eczema, pruritus HPI: Yogi Mcfarland is a 79 y.o. male who is seen in follow up at [facility] Department of Dermatology for eczema. Last visit [...] Info) Description 01/01/2026 1:15 PM EST Follow-Up [facility] 4th Floor [address] [facility], [place] [address] Belt Conveyor Drier: Romy Perez MD [address] [place] [id number] documented as of this encounter Visit Diagnoses Diagnosis Intrinsic eczema- Primary Actinic keratosis Tinea cruris Dermatophytosis of groin and perianal area Cyst of skin Sebaceous cyst documented in this encounter Care Teams Oreman Relationship Specialty Start Date End [place] [address] PCP - General Family Medicine 12/29/22 documented as of this encounter
--- OUTSIDE RECORDS SUMMARY | 2025-01-12 12:18 | XMS_ITS | Data Portability ---
Author Organization [place] - [facility] [place], [facility] Address [address] [place] [address] Care Team Providers Care Technical Applications Specialist Name Role Phone EMERY EFREN Primary Care [...] Surgeries orthopaedi c surgery (SURG) 2017 018 [email or web address] Not available 8 15:03:57 Imaging None recorded. Medication Orders None recorded. Patient TargetsNo targets recorded. Patient InstructionsNo instructions recorded. Reason for Referral Physical Therapist Referral for Impingement syndrome of shoulder region Dx: S/P Shoulder Arthroscopy - right shoulder SAD on 07/14/18 PLEASE REFER TO OP NOTE Referring Physician: Ciara Fernandez, Physician Tariff Inspector, Encounter Date: 07/23/2018 Results Created Date Observation Date Name Description Value Unit Range Abnormal Flag Note LastModifiedBy Organization Detail LastModifiedTime 03/26/20 18 03/26/2018 XR, shomanny ramila, 2 or more view Shield s Desi jarrell [facility] Access ion Number : [id number] 2.2 Patien t Name : Jake Rosario Medica l Record Number : [id number] Date of : 1945 Date of Exam : 2017 Referr ing Physic becky : CIARA CONWAY [facility] [address], [address] [place] [address] Exam : CR - SHOULD ER COMPLE TE MINIMU M 2 VIEWS CPT 24012 - RIGHT Room Descri ption : [facility] Maria E UArm XR Techni que : [...] benedict on file) 2017 ighobrial [facility]acy [facility] [address] , [place], [address], 03/26/2018 14:54:49 03/26/20 18 03/26/2018 XR, shoul ramila, 2 or more view Shield s Desi jarrell [facility] Access ion Number : [id number] 2.1 Leena whiting Name : Jake Rosario Record Number : [id number] Date of : 1945 Date of Exam : 2017 Referr ing Physic becky : CIARA CONWAY [facility] [address], [address] [place] [address] Exam : CR - SHOULD ER COMPLE TE MINIMU M 2 VIEWS CPT 67145 - LEFT Room Descri ption : [facility] Vistek UArm XR Techni que : AP, [...] mcmullen on file) 2017 ighobrial Lacy [facility] [place] [address], [place], [address], 03/26/2018 14:54:49 04/13/20 18 04/05/2018 MRI, shoul ramila, w/o contr ast No observ ation record ed. [email or web address] Not Available 2017 12:07:58 04/13/20 18 04/05/2018 MRI, shoul ramila, w/o contr ast No observ ation record ed. [email or web address] Not Available 2017 12:08:22 05/17/20 18 MRI, shoul ramila, w/o contr ast No observ ation record ed. [email or web address] Not Available 2017 14:08:52 Result Notes None recorded. Procedures Surgical History Date Name Laterality Status Provider Name and Address Organization Details Recorded Time 8 Orthopaedic Surgery completed Terri Patricia [place] - [facility] 07/23/2018 10:42:20 6 Orthopaedic Surgery completed Erika Finchteddy PACHECO [facility] 03/26/2018 08:12:57 5 Orthopaedic Surgery completed Erika Finchteddy PACHECO [facility] 03/26/2018 08:10:17 5 Orthopaedic Surgery completed Erika Ward TARA [facility] 03/26/2018 08:10:04 Imaging Results Imaging Date Name Status LastModified by Organiz ation Details LastModified Time 03/26/2018 XR, shoulder, 2 or more view completed ighobrial [facility] [place] [address] , [place], [address], 03/26/2018 14:54:49 03/26/2018 XR, shoulder, 2 or more view completed ighobrial [facility] [place] [address], [place], [address], 03/26/2018 14:54:49 04/05/2018 MRI, shoulder, w/o contrast completed Information not available 04/13/2018 12:07:58 04/05/2018 MRI, shoulder, w/o contrast completed Information not available 04/13/2018 12:08:22 05/17/2018 MRI, shoulder, w/o contrast completed [email or web address] Information not available 05/17/2018 14:08:52 Procedure Notes None recorded. Medical Equipment None Reported. Allergies Allergen ID Allergen Name Allergen Category Reaction Reaction Severity Criticality Documentation Date Start Date Code Code System Note Provider Name and Address Organization Details Recorded Time 728830 Product containin g penicilli n (product) medicatio n Not available Not available Not available 03/26/2018 70921 8001 SNOMED Erika Ward TARA salamanca [facility] 8 08:08:06 Medications Name Sig Start Date [...] Updated DateTime 04/26/2018 190.5 cm 21.9 kg/m2 56911.66 g Cyndie Ayers [facility] 04/26/2018 10:15:11 Date Recorded Body height Body mass index (BMI) Body weight Provider Name and Address Organization Details Last Updated DateTime 06/10/2018 190.5 cm 21.9 kg/m2 19771.66 g Debbie Skaggs [facility] 06/10/2018 12:12:39 Date Recorded Body height Body mass index (BMI) Body weight Provider Name and Address Organization Details Last Updated DateTime 07/23/2018 190.5 cm 21.9 kg/m2 23155.66 g Terri Patricia [facility] 07/23/2018 10:41:44 Date Recorded Body height Body mass index (BMI) Body weight Provider Name and Address Organization Details Last Updated DateTime 09/02/2018 190.5 cm 20.6 kg/m2 52584.74 g Boni Venegascarmina [facility] 09/02/2018 09:09:44 Date Recorded Body height Provider Name an d Address Organization Details Last Updated DateTime 10/19/2018 190.5 cm Nitesh Nathen [facility] 10/19/2018 14:53:48 Social History Question Answer Notes LastModified by Organizat ion Details LastModified Time Tobacco Smoking Status Never Smoker Erika salamanca [facility] [place] 03/26/2018 08:09:15 What Is Your Level Of [...] available 06/10 12:14:32 Medical History Condition Response Blood Clots / Phlebitis N Heart Problems N HIV or AIDS N Depression or Anxiety N High Blood Pressure N Irregular Heartbeat N MRSA N Emphysema / Chronic Bronchitis N Any Other Significant Medical Issues Y Reaction to General/Local Anesthesia N Weight Gain / Loss Y Hepatitis / Jaundice N Kidney / Bladder Infections N Diabetes N Bleeding Disorder N Hearing Loss N Angina, Heart Failure or Attack N Night Sweats N Seizures / Epilepsy N Osteoarthritis / Rheumatoid arthritis / Other Y Cancer N Stroke N Chemical Dependency / Alcoholism N Ulcer / Stomach Bleeding / Indigestion Y Visual Loss or Glaucoma N Psoriasis / Skin Rash N Thyroid Disorder N Heart Disease N Asthma / Shortness of Breath / Sleep Cylinder Grinder ea (please specify) N Pulmonary Embolism N Past Encounters Encounter ID Performer Location Encounter Start Date Encounter Closed Date Diagnosis/Indication Diagnosis SNOMED-CT Code Diagnosis ICD10 Code Diagnosis Note [id number] LOLY MORSE [facility] [address] [facility],[address] [address] 03/26/2018 07:50:21 03/26/2018 09:01:27 Shoulder pain 16061417 M25.511 M25.512 [id number] LOLY MORSE [address] [address] 04/26/2018 09:39:07 04/26/2018 11:03:10 Bicipital tenosynovitis 09014427 M75.22 M75.21 Shoulder pain 80225107 M 25.511 M25.512 Bursitis of shoulder 239 582767 M75.51 M75.52 Exostosis 987310523 M77. 9 Impingemen t syndrome of right shoulder region 3468144535 16848 M75.41 Partial th ickness rotator cuff tear 804004484 M75.111 [id number] ROLANDO DANIELS MD [address] [address] 06/10/2018 11:53:50 06/10/2018 13:22:37 Bursitis of right shoulder 7548163512 04113 M75.51 Exostosis 448845610 M25. 711 Impingemen t syndrome of shoulder region 040080838 M75.41 Shoulder pain 13539935 M 25.511 [id number] LOLY MORSE [address] [address] 07/23/2018 10:36:09 07/23/2018 11:01:02 Impingement syndrome of shoulder region 460669322 M75.41 [id number] ROLANDO DANIELS MD [address] [address] 09/02/2018 08:55:36 09/02/2018 09:40:47 Bursitis of right shoulder 6567669905 73781 M75.51 Shoulder pain 29852281 M 25.511 [id number] ROLANDO DANIELS MD [facility] Office [address],[place] [address] [place] [address] 10/19/2018 14:44:13 10/19/2018 15:04:12 Bursitis of right shoulder 1304642544 77572 M75.51 Osteophyte of bone 25980 87313 07723 M25.711 Impingemen t syndrome of right shoulder region 7802034833 51090 M75.41 Shoulder pain 95399004 M 25.511 Health Concerns Section Related Observation LastModified by Organization Detai ls LastModified Time None Recorded Concern Status LastModified by Organization Details LastModified Time None Recorded Advance Directives Directive None Recorded Payers Encounter Date Sequence Insurance Name Policy Number Policy Mccullough Covered Member ID Mccullough Member ID Guarantor Name 04/26/2018 1 [place] [employer] Yogi N [facility] [id number] [id number] 04/26/2018 2 [place] [facility] [id number] [facility] [id number] [facility] 06/10/2018 1 [place] [employer] [facility] [id number] Y57 [facility] 06/10/2018 2 [place] [facility] [id number] [facility] [id number] 07/23/2018 1 [place] [employer] [facility] [id number] [id number] [facility] 07/23/2018 2 [place] [facility] [id number] [facility] [id number] [facility] 09/02/2018 1 [place] [employer] [facility] [id number] Y57 [facility] 09/02/2018 2 [place] [facility] ([facility] [id number] Yogi Lozanochaya [id number] [facility]ogi [facility] 10/19/2018 1 [place]ARE [place]ATIONAL [facility] Yogi Mcfarland [id number] [id number] Yogi Sadler [facility] 10/19/2018 2 [place] [facility] ([facility] [id number] Yogi Lozanochaya [id number] [facility]ogi [facility] Notes Date Note Type Note Provider Name [...] and it? s quite limiting. LOLY MORSE [address] [place] [address], [phone], [facility] 04/27/2018 14:56:01 06/10/2018 text/html HX: Tip comes in today for recheck. He has been working with Ciara. He is having discomfort in the shoulder reaching to the side and to the overhead. ROLANDO DANIELS MD [address] [place] [address], [phone], [facility] 06/14/2018 08:05:11 07/23/2018 text/html HX: 72-year-old who comes in today for his first postoperative visit status post right shoulder arthroscopy, extensive debridement, release of adhesions and a decompression on 07/14/2018. He notes that he is doing well at this time. LOLY MORSE [address] [place] [address], [place], [phone], [facility] 07/26/2018 08:44:35 09/02/2018 text/html HX: 72-year-old who [...] not tried the Tylenol. ROLANDO DANIELS MD [address] [place] [address], [phone], [facility] 09/06/2018 12:16:15 10/19/2018 text/html HX: Tip comes in today doing better than last time. He is doing a home exercise program. ROLANDO DANIELS MD [address] [place] [address], [phone], [facility] 10/20/2018 16:25:30
--- OUTSIDE RECORDS SUMMARY | 2025-01-12 12:18 | XMS_ITS | Data Portability ---
Author Organization [place] [facility], [place] Address [address] [facility] [address] [place] [address] Care Team Providers Care Bull Chain Operator Name Role Phone DAVID DELGADILLO Referring Provider [phone] DAVID DELGADILLO Primary Care Provider Assessment No assessment recorded. Plan of Treatment Reminders Order Date Submit Date Provider Last Modified By Organization Details Last Modified Time Details Appointments None recorded. Lab None recorded. Referral physical therapist referral - Cervical tractionN kacie range of motionNec k isometric sScapular retractio nScapular strengthe ning1-2 times a week for 6 weeks 2023 024 [email or web address] [facility], [address] [place] [address], [address], 4 15:51:05 physical therapist referral - Bilateral shoulder strengthe ningDelto id and scapular strengthe ningUnres tricted active, active assisted range of motionGen tle passive range of motion1-2 times a week for 6 weeks 2022 023 [email or web address] [facility], [address] [place] [address], [address], 3 15:15:35 physical therapist referral - Do [...] 2 or more view 2023 [email or web address], [address], 4 11:26:20 XR, shoulder, 2 or more view 2023 [email or web address], [address], 4 14:44:09 XR, shoulder, 2 or more view 2022 [email or web address], [address], 3 13:49:46 XR, shoulder, 2 or more view [email or web address], [address], 3 13:30:46 Medication Orders None recorded. Patient TargetsNo targets recorded. Patient Instructions Encounter Date Encounter Id Patient Instructions Last Modified By Organization Details Last Modified Time 06/18/2023 [id number] Tip presents tod ay for follow-up of [...] shoulder x-rays. Not available 06/18/2023 13:13:36 07/09/2023 [id number] xrays ordered an d obtained at [place] of the right shoulder reveals hardware in [...] 2 months Not available 07/09/2023 12:52:45 09/10/2023 [id number] He presents toantony stein in follow-up for [...] cervical spine and he [place] with his pain specialist to see [...] to start physical therapy for both shoulders. [email or web address] Not available 09/10/2023 13:42:18 12/17/2023 [id number] He was doing wel l in physical [...] then he can return to those activities. [email or web address] Not available 12/17/2023 13:52:43 02/29/2024 [id number] He is complainin g of recurrent pain [...] am going to leave follow-up open-ended otherwise. [email or web address] Not available 02/29/2024 15:04:44 Reason for Referral [...] Dictat ed: 2022 1:00 PM Report ID: [id number] Exam perfor med at [facility]. Report signed in supplies packer al system at [facility] on 023 13:00 Report ed By: Dilip ponce M.D. (MARED ) Signed By: Dilip ponce M.D. (MARED ) [email or web address] [facility]) [address] [place], [address], 05/26/2023 15:10:08 05/26/20 23 05/26/2023 CT, daija mcgrath, w/o contr ast No observ ation record ed. [facility] [address] [place] [address], [place], [address], 05/27/2023 08:54:14 06/04/20 23 05/21/2023 preop erati ve clear ance* No observ ation record ed. [email or web address] Not Available 07/10 11:43:14 06/04/20 23 11/07/2022 preop erati ve clear ance* No observ ation record ed. [email or web address] [facility] - [address], [address], 07/10/2023 11:43:31 06/09/20 23 06/09/2023 XR, daija [...] Dictat ed: 2022 4:41 PM Report ID: [id number] Exam perfor med at [facility] al. Prelim inary result report ed in supplies packer al system at [facility] on 16:41 Report ed By: Naman gomez M.D (resid ent) (ACHOC ) [email or web address] [facility]) [address] [facility], [place], [address], 06/10/2023 08:24:56 06/09/20 23 06/09/2023 XR, shoul [...] Dictat ed: 2022 4:50 PM Report ID: [id number] Exam perfor med at [facility] al. Report signed in supplies packer al system at [facility] on 16:50 Report ed By: Naman gomez M.D (resid ent) (ACHOC ) Signed By: Abhijit Sanz M.D. ([id number]) [facility]) [address], [place], [address], 06/10/2023 08:24:56 07/09/20 23 shoul ramila RT No observ ation record ed. [address], [address] 07/09/2023 11:15:14 07/09/20 23 XR, shoul ramila, 2 or more view No observ ation record ed. [address], [address], 07/09/2023 11:14:38 09/10/20 23 shoul ramila RT No observ ation record ed. [address], [place], [address] 09/10/2023 13:13:34 09/10/20 23 XR, shoul ramila, 2 or more view No observ ation record ed. [email or web address] [address], [address], 09/10/2023 13:12:23 12/17/19 24 shoul ramila RT No observ ation record ed. [address], [address] 12/17/2023 13:34:55 12/17/19 24 XR, shoul ramila, 2 or more view No observ ation record ed. [address], [address], 12/17/2023 13:33:53 02/29/20 24 shoul ramila RT No observ ation record ed. [address], [address] 02/29/2024 14:48:59 02/29/20 24 XR, shoul ramila, 2 or more view No observ ation record ed. [address], [address], 02/29/2024 14:48:32 Result Notes None recorded. Procedures Surgical History Date Name Laterality Status Provider Name and Address Organization Details Recorded Time 03/02/20 [facility] Cervical Epidural Injection completed MONTY GUTIERRES MD [address] [place], [address], [facility] 03/02/2023 12:58:15 12/23/19 Ultrasound guided Joint injection (Left/Right) completed Shahla Rothman PA-C [address] [place], [address], [facility] 12/23/2022 11:29:29 10/17/20 Joint Replacement completed Porfirio Stoner [facility] 11/06/2022 13:58:05 05/27/20 21 Joint Replacement completed Porfirio Stoner [facility] 11/06/2022 13:59:31 06/16/20 16 Other completed Porfirio Stoner [facility] 02/19/2023 15:17:37 06/07/20 16 Joint Replacement completed Karan Corona [facility] 12/23/2022 08:42:45 11/02/19 16 primary fusion of cervical spine completed Christine Hobson [facility] 12/24/2022 11:36:14 Other completed Karan Corona [facility] 12/23/2022 08:42:45 arthroscopy of shoulder completed Porfirio Stoner [facility] 02/19/2023 15:19:04 prosthetic total arthroplasty of right shoulder completed Seth Milton [facility] 03/24/2023 10:47:41 Imaging Results Imaging Date Name Status LastModified by Organization Details LastModified Time 05/26/2023 CT, shoulder, w/o contrast completed [email or web address] [facility] [address] [facility], [place], [address], 05/26/2023 15:10:08 05/26/2023 CT, shoulder, w/o contrast completed [email or web address] [facility] [address] [facility] [address], [place], [address], 05/27/2023 08:54:14 05/21/2023 preoperative clearance* completed [email or web address] Information not available 07/10/2023 11:43:14 11/07/2022 preoperative clearance* [facility] [address], [address], 07/10/2023 11:43:31 06/09/2023 XR, shoulder, 1 view completed [email or web address] [facility]) [address] [place] [address], [address], 06/10/2023 08:24:56 06/09/2023 XR, shoulder, 1 view completed [email or web address] [facility]) [address] [place] [address], [address], 06/10/2023 08:24:56 07/09/2023 shoulder RT completed [email or web address] [facility] [address] [place] [address], [address] 07/09/2023 11:15:14 07/09/2023 XR, shoulder, 2 or more view completed [email or web address] [facility] - [address], [address], 07/09/2023 11:14:38 09/10/2023 shoulder RT completed [email or web address] [facility] [address] [place] [address], [address] 09/10/2023 13:13:34 09/10/2023 XR, shoulder, 2 or more view completed [email or web address] [facility] - [address], [address], 09/10/2023 13:12:23 12/17/2023 shoulder RT completed [email or web address] [facility] [address] [place] [address], [address] 12/17/2023 13:34:55 12/17/2023 XR, shoulder, 2 or more view completed [email or web address] [facility] - [address], [address], 12/17/2023 13:33:53 02/29/2024 shoulder RT completed [email or web address], [place], [address] 02/29/2024 14:48:59 02/29/2024 XR, shoulder, 2 or more view completed cox walnut [email or web address] [address], [address], 02/29/2024 14:48:32 Procedure Notes None recorded. Medical Equipment None Reported. Allergies Allergen ID Allergen Name Allergen Category Reaction Reaction Severity Criticality Documentation Date Start Date Code Code System Note Provider Name and Address Organization Details Recorded Time 661180 Product containin g penicilli n (product) medicatio n Not available Not available Not available 11/06/2022 09306 8001 SNOMED Porfirio salamanca [facility] 13:55:10 051452 Substance with sulfonami de structure and antibacte rial mechanism of action (substanc e) medicatio n Not available Not available Not available 12/24/2022 44620 8003 SNOMED Christine salamanca [facility] 3 [...] Updated DateTime 06/18/2023 190.5 cm 21.9 kg/m2 42155.66 g 5 Christine Hobson [facility] 06/18/2023 11:28:36 Date Recorded Body height Body mass index (BMI) Body weight Pain severity - 0-10 verbal numeric rating [Score] - Reported Provider Name and Address Organization Details Last Updated DateTime 07/09/2023 190.5 cm 21.9 kg/m2 91152.66 g 3 Kamran Silva [facility] 07/09/2023 11:31:48 Date Recorded Body height Body mass index (BMI) Body weight Pain severity - 0-10 verbal numeric rating [Score] - Reported Provider Name and Address Organization Details Last Updated DateTime 09/10/2023 190.5 cm 21.9 kg/m2 91541.66 g 3 Porfirio Stoner [facility] 09/10/2023 13:12:38 Date Recorded Body height Body mass index (BMI) Body weight Pain severity - 0-10 verbal numeric rating [Score] - Reported Provider Name and Address Organization Details Last Updated DateTime 12/17/2023 190.5 cm 21.9 kg/m2 10261.66 g 6 Porfirio Stoner [facility] 12/17/2023 13:35:14 Date Recorded Body height Body mass index (BMI) Body weight Pain severity - 0-10 verbal numeric rating [Score] - Reported Provider Name and Address Organization Details Last Updated DateTime 02/29/2024 190.5 cm 21.9 kg/m2 55186.66 g 4 Porfirio Stoner [facility] 02/29/2024 14:48:30 Social History Question Answer Notes LastModified by Organizat ion Details LastModified Time Tobacco Smoking Status Never Smoker Porfirio salamanca [facility] 11/06/2022 13:54:59 What Is Your Level Of Alcohol Consumption? None [email or web address] Information not available 11/06/2022 Are You Deaf Or Do You Have Serious Difficulty Hearing? No [email or web address] Information not available 11/06/2022 Which Illicit Or Recreational Drugs Have You Used? 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 Right Information not available 11/06/2022 At What Age Did You Start Smoking Tobacco? Non-smoker [email or web address] Information not available 12/23/2022 How Much Tobacco Do You Smoke? No Information not available 11/06/2022 Sex: Unknown Functional Status Question Answer Note LastModified by Organization D etails LastModified Time What is your exercise level? Moderate [email or web address] Information not available 11/06/2022 Mental Status None recorded. Family History Relationship Description Onset Age of this Age Resolved Age Notes LastModified by Organization Details LastModified Time Paternal Grandfather Arthritis [email or web address] Not available 15:17:34 Brother Diabetes mellitus 67 [email or web address] Not available 2022 08:42:48 Maternal Grandfather Arthritis [email or web address] Not available 15:17:34 Medical History Condition Response Coronary Artery Disease N Gout N Dyslipidemia N Artificial Joints N Thyroid Problems N Lung Disease N Depression Y Pacemaker N Anemia N Back Pain N Hearing Impairment N Anesthesia Complications N Heart Attack ([place]) N Headaches/Migraines N Deep Vein Thrombosis N Anxiety Disorder N Diabetes N Bleeding Disorder N Arthritis Y Seizures/Epilepsy N Cardiac Stent N Blood Clot N Tuberculosis N AIDS/HIV N Inflammatory Bowel Disease N Acid Reflux (GERD) N Cancer N Stroke N Substance Abuse N Peripheral Vascular Disease N Asthma/COPD N Wears Glasses/Contacts N Hepatitis N Heart Disease N Organ Transplant N Rheumatoid Arthritis N Pulmonary Embolism N Fibromyalgia N Hypertension N Stomach Ulcer N Osteoporosis N Kidney Disease N Past Encounters Encounter ID Performer Location Encounter Start Date Encounter Closed Date Diagnosis/Indication Diagnosis SNOMED-CT Code Diagnosis ICD10 Code Diagnosis Note [id number] CHELSIE BAEZ MD [address] [address] 11/06/2022 13:43:20 11/06/2022 20:30:37 Cervical spondylosis 561580695 M47.812 Tendinitis of long head of biceps brachii of right shoulder 800389141 M75.21 Needs an intra-gabriel cular cortisone under ultrasound guidance right shoulder Full thick ness rotator cuff tear 352660005 M75.121 MRI of the right shoulder shows an obvious supraspina tus tear with small tear of the subscapula ris and significan t biceps tendinopat hy. Mild glenohumer al osteoarthr itis [id number] Shahla Rothman PA-C [facility] [address] [facility] [address] [place] [address] 12/23/2022 08:36:44 12/31/2022 15:45:52 Osteoarthritis of right glenohumeral joint 6648568661 168325 M19.011 [id number] MONTY MILLS MD [address] [address] 12/24/2022 11:28:40 12/24/2022 14:12:11 Lumbar radiculopathy 900794317 M54.16 [id number] MONTY MILLS MD [address] [address] 01/14/2023 16:48:40 01/14/2023 17:06:42 Lumbar radiculopathy 348984690 M54.16 [id number] MD NIKO MENDOZA [address] [address] 02/03/2023 09:53:02 02/13/2023 12:51:35 Lumbar radiculopathy 649784626 M54.16 [id number] MD NIKO MONROY [address] [address] 02/19/2023 14:32:41 02/19/2023 15:54:53 Rotator cuff arthropathy of right shoulder 7553708263 1328500 M25.811 Cervical radiculitis 110 [address] M54.12 [id number] MD NIKO MILLAN [address] [address] 03/02/2023 12:51:14 03/12/2023 14:26:06 Cervical radiculopathy 81104572 M54.12 [id number] MD NIKO MONROY [address] [address] 03/23/2023 16:10:22 03/30/2023 05:53:54 Rotator cuff arthropathy of right shoulder 0503496782 2628362 M25.811 [id number] MD NIKO MENDOZA [address],[facility] [address] [place] [address] 03/24/2023 09:50:19 04/01/2023 10:20:18 Muscle atrophy 09601723 M62.50 [id number] MD NIKO MONROY [address] [address] 06/08/2023 16:11:27 06/08/2023 17:25:24 Pruritic disorder 233116865 L29.9 Rotator cu ff tear arthropathy 983170898 M19.111 [id number] Shahla Rothman PA-C [address] [address] 06/18/2023 11:24:25 06/18/2023 12:19:56 Postoperative care 688927324 Z48.89 right reverse TSA 06/09/23 [id number] Shahla Rothman PA-C [address] [address] 07/09/2023 10:46:57 07/09/2023 11:45:04 Postoperative care 056915248 Z48.89 right reverse TSA 06/09/23 [id number] CHELSIE BAEZ MD [address] [address] 09/10/2023 12:36:50 09/10/2023 13:41:32 History of reverse prosthetic total arthroplasty of right shoulder 0384588553 6323070 Z96.611 [id number] MD NIKO MONROY [address] [address] 12/17/2023 13:25:26 12/23/2023 09:00:34 History of reverse prosthetic total arthroplasty of right shoulder 7592619243 9087309 Z96.611 Sprain of right acromioclavicular ligament 6350996008 1362925 S43.51XA [id number] MD NIKO MONROY [address] [address] 02/29/2024 14:01:02 02/29/2024 15:51:04 Pain of right shoulder joint 9487765471 9091572 M25.511 Cervical radiculitis 110 [address] M54.12 Cervical radiculopathy 83775548 M54.12 Health Concerns Section Related Observation LastModified by Organization Detai ls LastModified Time None Recorded Concern Status LastModified by Organization Details LastModified Time None Recorded Advance Directives Directive None Recorded Payers Encounter Date Sequence Insurance Name Policy Number Policy Mccullough Covered Member ID Mccullough Member ID Guarantor Name 06/18/2023 1 [place] [employer] Yogi N Dukeshire [id number] Yogi [place] 06/18/2023 2 [place] [facility] [place] [id number] Yogi N Dukeshire [id number] Yogi [place] 07/09/2023 1 [place] [employer] Yogi N [place] [id number] Yogi [place] 07/09/2023 2 [place] [facility] [place] [place] [id number] Yogi N D[place]hire [id number] Yogi [place] 09/10/2023 1 [place] [employer] Yoig N [place] [id number] 57 Yogi [place] 09/10/2023 2 [place] [facility] [place] [place] [id number] Yogi N D[place]hire [id number] Yogi [place] 12/17/2023 1 [place] [employer] Yogi N [place] [id number] 57 Yogi [place] 12/17/2023 2 [place] [facility] [place] [id number] Yogi N D[place]hire [id number] Yogi [place] 02/29/2024 1 [place] [employer] Yogi N [place] [id number] 57 Yogi [place] 02/29/2024 2 [place] [facility] [place] [id number] Yogi N D[place] [id number] Yogi Lozanochaya Notes Date Note Type Note Provider Name and Address Organization Details Recorded Time 06/18/2023 text/html Chief complaint is right shoulder He presents today for follow-up after right shoulder surgery. Overall he is doing quite well without fever, chills, numbness, tingling, or burning sensations. Shahla Rothman PA-C [address] [place] [address], , [facility] 06/18/2023 13:13:47 07/09/2023 text/html CC: Right should er He presents today for follow up after right shoulder surgery. Overall he is doing well although he admits to some discomfort at night. Shahla Rothman PA-C [address] [place] [address], , [facility] 07/09/2023 12:52:59 09/10/2023 text/html CC: Right should er He presents today for follow up after right shoulder surgery. He is having less pain. He has pain after doing his exercises. He is also occasionally getting pain at rest. He has a history of cervical spine problems. CHELSIE BAEZ MD [address] [place] [address], , [facility] 09/10/2023 13:45:15 12/17/2023 [...] to bother him. CHELSIE BAEZ MD [address] [place], [place], , [facility] 12/17/2023 13:53:30 02/29/2024 [...] down to the hand. CHELSIE BAEZ MD [address] [place] [address], [address], [facility] 02/29/2024 15:06:12
--- OUTSIDE RECORDS SUMMARY | 2025-01-12 12:18 | XMS_ITS | Encounter Summary ---
Author Organization [facility] Address [address] [place] [address] Care Team Providers Care Clay Structure Builder And Servicer Name Role Phone Edin Rubalcava MD Primary Care Provider Encounter Details Date Type Department Care Team (Late st Contact Info) Description 12/09/2024 Lab Requisition [facility] - Main Lab [address] [place] [address] Minerva Piper NP [address] [facility] [address] [place] [address] Unspecified abnormal findings in urine Social History [...] ssp pneumoniae(A) MARIANO 12/13/2024 8:41 AM EST [facility] ([facility] Comment: This is an edited result. Previous organism was Gram negative bacilli on 12/10/2024 at 0902 EST. Culture, Urine 10,000-49,000 CFU/mL Acinetobacter baumannii complex(A) MARIANO 12/13/2024 8:41 AM EST [facility] ([facility]) HOSPITAL LAB Comment: The organism value for [...] MARIANO <=20 ug/ml: Susceptible us Minerva Piper [facility] MICROBIOLOGY - GENERA L ORDERABLES Final Result [facility] ([facility]) [facility] [address] [place] [address], documented in this encounter Visit Diagnoses Diagnosis Unspecified abnormal findings in urine documented in this encounter Care Teams Clay Structure Builder And Servicer Relationship Specialty Start Date End Date Edin Rubalcava MD [address] [place] [address] PCP - General 09/30/22 documented as of this encounter
--- OUTSIDE RECORDS SUMMARY | 2025-01-12 12:18 | XMS_ITS | Referral Summary ---
Author Organization [facility] Address [address] [place] [address] Care Team Providers Care 3D Artist Name Role Phone Villa Uribe Primary Care Provider [phone] Encounters Date Type Department Care Team Description 12/26/2024 3:00 PM EST Follow-Up [facility] [address] [place] [address], [place] [address] Claim Adjuster: Romy Perez MD Intrinsic eczema (Primary Dx); Actinic keratosis; Tinea cruris; Cyst of skin 11/16/2024 Refill [facility] 2nd Floor [address] [facility], [place] [address] Claim Adjuster: Romy Perez MD Tinea cruris from Last [...] Administration Dates Next Due Covid-19, Pfizer, mRNA, [place] valent, PF 30 mcg/0.3 mL dose (for [...] Info) Description 01/01/2026 1:15 PM EST Follow-Up [facility] 4th Floor [address] [facility], [place] [address] Claim Adjuster: Romy Perez MD [address] [place] [address] Insurance MEDICARE [facility] Care Teams 3D Artist Relationship Specialty Start Date End Date [place] [address] PCP - General Family Medicine 12/29/22
--- OUTSIDE RECORDS SUMMARY | 2025-01-12 12:18 | XMS_ITS | Clinical Summary ---
Author Organization [facility] Address [address] [facility] [address] [place] [address] Phone Care Team Providers Care Edge Cutter Name Role Phone Mahendra Espinosa MD Primary Care Provider [phone] Allergies Active Allergy Reactions Criticality Noted Date [...] age to complete this topic Insurance MEDICARE [facility] Care Teams Edge Cutter Relationship Specialty Start Date End Date Mahendra Espinosa MD [address] [place] [address] PCP - General Internal Medicine 02/09/23
--- OUTSIDE RECORDS SUMMARY | 2025-01-12 12:18 | XMS_ITS | Clinical Summary ---
Author Organization [facility] Address [address] [place] [address] Care Team Providers Care Biomedical Equipment Support Specialist Name Role Phone Alanna Polanco darin Primary [...] age to complete this topic Care Teams Biomedical Equipment Support Specialist Relationship Specialty Start Date End Date Alanna Polanco [facility] [place] [address] PCP - General Internal Medicine 12/06/21
--- OUTSIDE RECORDS SUMMARY | 2025-01-12 12:18 | XMS_ITS | Data Portability ---
Author Organization [facility] [employer] Address [address] [place] [address] [place] [address] Care Team Providers Care Steel Fixer Name Role Phone CHARLETTE SEGURA Primary Care Provider [phone] CHARLETTE SEGURA Referring Provider CHARLETTE SEGURA Primary Care Provider Assessment Encounter Date Assessment Date Assessment LastModified by Organization Details LastModified Time 09/17/2021 09/17/2021 IMPRESSION: Essential tremor, with partial benefit of primidone and propranolol, but with residual tremor affecting daily activities. Tremor is adequately controlled. No medication change indicated. He is currently under the care of [facility] and has had a recent right [...] (patient and Dr Gotti) discussed that we ([facility]) favor retrial of clonazepam as opposed [...] the presentation. I agree with Beulah Mitchell [facility] on impression and plan. Fabricio [...] a risk for allergic reaction. I have economic forecaster with such a foreign body triggering neuropathy. [...] Orders primidone 250 mg tablet 2020 021 [facility]acy #[id number], [address], [place], [address], 10:38:33 propranolol ER 60 mg capsule,24 hr,extended release 2020 021 [facility]armacy #[id number], [address], [place], [address], 10:37:37 Patient TargetsNo targets recorded. Patient Instructions [...] Address Organization Details Recorded Time Essential tremor [id number] Active 021 G25 Lynn Yanely [facility] 10:12:44 Problem Notes None recorded. Procedures Surgical History Date Name Laterality Status Provider Name and Address Organization Details Recorded Time 12/09/2021 DATA REVIEW completed Erick Gotti MD [address] [place] [address] [place], [phone], [facility] 12/09/2021 15:08:33 09/17/2021 DATA REVIEW completed BEULAH MITCHELL PA-C [address] [place] [address] [place], [phone], [facility] 09/17/2021 11:23:58 Imaging Results None recorded. Procedure [...] Not Available Not Available duloxetine 20 mg capsule,ldey yed release TAKE 1 CAPSULE BY MOUTH [...] Code Diagnosis Note [id number] Erick Gotti MD [facility] [address] [place] [address] [place] [phone] 09/17/2021 10:11:27 09/17/2021 12:36:09 Tremor [id number] R25.1 3789 Erick Gotti MD [facility] [address] [place] [address] [place] [phone] 12/09/2021 14:43:19 12/09/2021 17:41:02 Tremor [id number] R25.1 Health Concerns Section Related Observation LastModified by Organization Detai ls LastModified Time None Recorded Concern Status LastModified by Organization Details LastModified Time None Recorded Advance Directives Directive None Recorded Payers Encounter Date Sequence Insurance Name Policy Number Policy Mccullough Covered Member ID Mccullough Member ID Guarantor Name 09/17/2021 2 [place] [facility] [id number] Yogi N [facility] [id number] Yogi N [facility] 09/17/2021 1 [place] [employer] Yogi N Kathieire [id number] Yogi N [facility] 12/09/2021 2 [place] [id number] Yogi N Blakeire [id number] Yogi N [facility] 12/09/2021 1 [place] [employer] Yogi N Bruna [id number] Yogi Sadler Bruna Notes Date Note [...] via telemetry. He is located in his [place] and provider is located in the office. His is in the background and assists with confirming medications but we did not formally meet on the video. Since his 04/11/2020 neurology encounter, he had total knee replacement surgery with Dr. Jose Luis Mason at [facility] on May 28. He has a left reverse shoulder replacement upcoming on October [address] Devorah Wolf, also of [facility]. He states that his tremors [...] face appearance has changed. Erick Gotti MD [address] [place] [address], [phone], [facility] 09/18/2021 20:15:39 12/09/2021 text/html Follow up [...] eating via telemetry. He is located in [facility] and provider is located in the [...] blood work which was unrevealing and prescribed [id number] Sarna lotion. He uses this every 2 hours and it works for 2 hours to reduce the burning and itching from unbearable to anywhere between two and 7/10 intensity. He has then had consultation December 04, with hematology. They, in consultation with an hose maker, prescribed Zyrtec and famotidine, antihistamines focusing on [...] face appearance has changed. Erick Gotti MD [address] [place] [address] [place], [phone], [facility] 12/09/2021 15:39:55
--- OUTSIDE RECORDS SUMMARY | 2025-01-12 12:19 | XMS_ITS | Clinical Summary ---
Author Organization [facility] Address [address] [place] [address] Care Team Providers Care Forest Fire Specialist Supervisor Name Role Phone Villa Uribe Primary Care Provider [phone] Allergies Active Allergy Reactions Criticality Noted Date [...] Team Description 12/26/2024 3:00 PM EST Follow-Up [facility] 4th Floor [address] [facility] [facility], [place] [address] Air Carrier Inspector: Romy Perez MD Intrinsic eczema (Primary Dx); Actinic keratosis; Tinea cruris; Cyst of skin 11/16/2024 Refill [facility] 2nd Floor [address] [facility] [facility], [place] [address] Air Carrier Inspector: Romy Perez MD Tinea cruriwilla from Last 3 Months Immunizations Immunization Administration Dates Next Due Covid-19, Pfizer, mRNA, Shawnee valent, PF 30 mcg/0.3 mL dose (for [...] Info) Description 01/01/2026 1:15 PM EST Follow-Up [facility] 4th Floor [address] [facility], [place] [phone] Air Carrier Inspector: Romy Perez MD [address] [place] [address] Health Maintenance Due Date Last Done Comments [...] age to complete this topic Insurance MEDICARE [facility] Care Teams Forest Fire Specialist Supervisor Relationship Specialty Start Date End Date Villa Uribe [address] [place] [address] PCP - General Family Medicine 12/29/22
--- OUTSIDE RECORDS SUMMARY | 2025-01-12 12:19 | XMS_ITS | Clinical Summary ---
Author Organization [address] Address [address] [place] [phone] Phone Care Team Providers Care Spiritual Counselor Name Role Phone Edin Rubalcava MD Primary [...] by mouth 2 times daily. Prescriber from [facility] Active mirtazapine (REMERON) 15 mg tablet Take 1 Tablet by mouth daily. Active buPROPion SR (WELLBUTRIN SR) 100 mg 12 hr tablet Take 1 Tablet by mouth daily. Active dupilumab (Dupixent Pen) 300 mg/2 mL pen Inject 1 Dose as directed every 14 days. At [facility] solderer electronic for itching Active naproxen (NAPROSYN) 500 mg tablet Take 1 Tablet by mouth [address] Wolf at [facility] Takes once a day Active acetaminophen (TYLENOL) [...] Department Care Team Description 12/09/2024 Lab Requisition [facility] - Main Lab [address] [facility] [place] [address] Minerva Piper NP Unspecified abnormal [...] Site/Laterality Comments KNEE ARTHROSCOPY W/ DEBRIDEMENT PROCEDURE: [place] ARTHRS KNEE DEBRIDEMENT/SHAVING ARTCLR CRTLG; COMMENT: 1984; 2011 Right (Mindess) OTHER SURGICAL HISTORY PROCEDURE: [place] PARTICAL EXCISION BONE PHALANX TOE; COMMENT: Right Great toe OTHER SURGICAL HISTORY 08/2008 PROCEDURE: PROSTATE SPEC. AG, SCREEN; COMMENT: 3.7 OTHER SURGICAL HISTORY 05/2008 PROCEDURE: KY OPH SVCS MEDICAL XM&EVAL COMPRE EST PT 1/>VST; COMMENT: [place]; cataract COLONOSCOPY 09/2003 PROCEDURE: KY COLONOSCOPY STOMA DX INCLUDING COLLJ SPEC SPX; COMMENT: Juan Alberto; Up to cecum, well prepared colonn, tics; rpt 10 y COLONOSCOPY W/ POLYPECTOMY 12/23/2013 PROCEDURE: [place] COLSC FLX W/RMVL OF TUMOR POLYP LESION SNARE TQ; COMMENT: adenoma and tics; repeat in 5 yrs NECK SURGERY PROCEDURE: HISTORICAL NECK SURGERY; COMMENT: auto fusion C5-6, stand alone graft C 4-5 SHOULDER SURGERY 07/20/2018 Right PROCEDURE: HISTORICAL SHOULDER SURGERY; COMMENT: Dr. Alec Daniels, [place]. Labral tear, adhesion, partial cuff tear, impingement CATARACT EXTRACTION 2018 PROCEDURE: HISTORICAL CATARACT REMOVAL; COMMENT: Kristen TOTAL KNEE ARTHROPLASTY 05/28/2021 Right PROCEDURE: [place] ARTHRP KNE CONDYLE&PLATU MEDIAL&LAT COMPARTMENTS; COMMENT: Kelly. [...] followed by [facility] Family History Medical History Relation Name Comments [...] ssp pneumoniae(A) MARIANO 12/13/2024 8:41 AM EST [facility] Comment: This is an edited result. Previous organism was Gram negative bacilli on 12/10/2024 at 0902 EST. Culture, Urine 10,000-49,000 CFU/mL Acinetobacter baumannii complex(A) MARIANO 12/13/2024 8:41 AM EST [facility] Comment: The organism value for [...] MICROBIOLOGY - GENERA L ORDERABLES Final Result [facility] [address] [place] [address], * Lipid panel (10/03/2019) Pathologist [facility] LDL/HDL Ratio 2 0 - 4 Triglycerides 59 0 - 150 mg/dL Cholesterol 137 0 - 200 mg/dL HDL 72 >=40 mg/dL LDL Cholesterol 54 0 - 100 mg/dL Blood Venous blood specimen / Unknown Historical Provider LAB BLOOD ORDERABLES Mariluz l Result * Hepatitis C Screening (08/22/2013) Pathologist [facility] Hepatitis C Screening Abstracted Historical Provider HEALTH MAINTENANCE Final Result from Last 3 Months or Most Recently Relevant to Health Maintenance Insurance MEDICARE [facility] Advance Directives Documents on File Type Date Recorded Patient Regulatory Affairs Associate Expl anation Health Care Decision (hx) 12/11/2011 [...] (hx) 12/11/2011 AD CARDONA DIRECTIVE Care Teams Spiritual Counselor Relationship Specialty Start Date End Date Edin Rubalcava MD [address] [place] [phone] PCP - General 09/30/22
--- OUTSIDE RECORDS SUMMARY | 2025-01-12 12:19 | XMS_ITS | Encounter Summary ---
Author Organization [facility] Address [address] [place] [address] Care Team Providers Care Natural Developer Name Role Phone Villa Uribe Primary Care Provider Reason for Visit * Reason Onset Date Comments CS- appointment 01/16/2023 Encounter Details Date Type Department Care Team (Late st Contact Info) Description 01/16/2023 Telephone [facility] [address] [place] [phone] Telephone Intake, Staff CS- appointment Social History [...] Info) Description 01/01/2026 1:15 PM EST Follow-Up [facility] 4th [address] [place] [address], [place] [phone] [employer] Industrial Arts Teacher: Romy Perez MD [address] [place] [id number] documented as of this encounter Visit Diagnoses Not on filedocumented in this encounter Care Teams Natural Developer Relationship Specialty Start Date End Date Villa Uribe [address] [place] [address] PCP - General Family Medicine 12/29/22 documented as of this encounter
== END 2025-01-12 10:38 | disposition home or self-care (01) ==
LOC: HO.HKAS 09:56
PROVIDERS: Visit Provider Internal Medicine Nephrology
DX: E87.1 Hypo-osmolality and hyponatremia (principal); R60.9 Edema, unspecified
CPT/HCPCS: 99214

== ENCOUNTER → 2025-01-12 09:56 | Outpatient (BNVA) | payer MEDICARE, BC, SELFPAY | PROVIDERS: Visit Provider Internal Medicine Nephrology | DX: E87.1 Hypo-osmolality and hyponatremia (principal); R60.9 Edema, unspecified | CPT/HCPCS: 99212 ==

== ENCOUNTER 2025-10-05 11:32 | Outpatient (REF) | payer MEDICARE, BC, SELFPAY ==
[2025-10-05 18:30] LABS: Anion Gap 16 (12-20); Blood Urea Nitrogen 30 mg/dL (9-16); Carbon Dioxide 24 mmol/L (22-29); Chloride 100 mmol/L (96-108); Estimated Glomerular Filt Rate > 60; Potassium 4.7 mmol/L (3.3-5.1); Sodium 135 mmol/L (135-145)
== END 2025-10-05 11:33 | disposition home or self-care (01) ==
LOC: HO.HKASLDS 11:32
PROVIDERS: PCP Family Medicine; Visit Provider Internal Medicine Nephrology
DX: E87.1 Hypo-osmolality and hyponatremia (principal); R60.9 Edema, unspecified
CPT/HCPCS: 36415; 80051; 82565; 84520

== ENCOUNTER 2025-10-10 10:08 | Outpatient (AMB) | payer MEDICARE, BC, SELFPAY ==
--- NOTE | 2025-10-10 10:21 | HO.NEPHOV ---
Vital Signs 10/10/25 10:24 Height 6 ft 3 in Weight 164 lb 8 oz BMI 20.6 BP 90/50 L Blood Pressure Location Lt brachial Position Sitting Pulse 70 Pulse Source Pulse Oximeter Pulse Oximetry (%) 98 Oxygen Delivery Method Room Air Intake Visit Reasons: 8 mo f/u w/ labs-LVM Geospatial Program Management Officer Required: No Accompanied by: Spouse Allergies Penicillins Allergy (Mild, Verified 10/10/25 10:24) Unknown sulfa drugs Allergy (Mild, Uncoded 01/21/24 10:11) Unknown HPI Comments Details: 78-year-old gentleman whom I had the privilege in seeing in follow-up for H/O edema and H/O hyponatremia. He had shoulder surgery on the left in October 2021. Following this, he had developed body rash as well as generalized edema. He was seen by Dermatology, neurology, armor reconnaissance specialist and had multiple investigations including echocardiogram. There was no concrete reason identified for his edema. He was treated with Lasix with improvement. He has no history of any renal function or liver function abnormality. He denies shortness of breath, paroxysmal nocturnal dyspnea, orthopnea. He underwent prostate surgery following which he needed catheterization which he continues to have. He is going to undergo further urological surgery in [facility]. He has lost some significant weight. He has been have exacerbation of his OCD behaviour and is looking to see a Psychiatrist. He was accompanied by his during this visit. [facility] Surgical History History of right shoulder replacement (~06/2023) Social History Alcohol intake: never Patient Tobacco Use Status: Never used Tobacco Review of Systems Const All systems reviewed & are unremarkable except as noted in HPI and below Physical Exam Vital Signs: Last Vital Signs Pulse 70 10/10/25 10:24 BP 90/50 L 10/10/25 10:24 Pulse Ox 98 10/10/25 10:24 Oxygen Delivery Method Room Air 10/10/25 10:24 BMI result Body Mass Index 20.6 Const General: comfortable and no acute distress Orientation/consciousness: patient oriented x3 HEENT Head: Yes normocephalic Mouth: Normal oral and palatal mucosa present Eyes EOM: EOMs intact bilaterally Neck Neck: Yes supple Resp Auscultation: clear to auscultation bilaterally Cardio Jugular venous distension: no JVD Rate: regular rate Heart sounds: Murmur heart sound present GI Palpation (GI): Soft to palpation Auscultation: normal bowel sounds General: Yes no CVA tenderness Back/Spine/Pelvis Back: no CVA tenderness Skin General skin exam: no rashes or lesions noted Neuro General: patient oriented x3 and moves all extremities Extrem General: Yes no pedal edema Results Reviewed Nephrology Results: Sodium, (135-145) 135 mmol/L 10/05/25 Potassium, (3.3-5.1) 4.7 mmol/L 10/05/25 Chloride, (96-108) 100 mmol/L 10/05/25 Carbon Dioxide, (22-29) 24 mmol/L 10/05/25 BUN, (9-16) 30 mg/dL H 10/05/25 Creatinine, (0.5-1.4) 0.97 mg/dL 10/05/25 Calcium, (8.4-10.2) 8.7 mg/dL 01/19/24 Urine Creatinine 54.29 mg/dL 07/05/24 Protein/Creatinin Ratio TNP 07/05/24 Assessment & Plan Assessment & Plan (1) Edema: Code(s): R60.9 - Edema, unspecified Category: Medical Qualifiers: Edema type: unspecified Qualified Code(s): R60.9 - Edema, unspecified (2) Hyponatremia: Code(s): E87.1 - Hypo-osmolality and hyponatremia Category: Medical Plan Tip had edema, etiology of which was never determined. He had seen multiple specialists. His urine protein creatinine ratio was unremarkable. He was treated with diuretics. His renal functions are normal. His serum sodium is acceptable. He is going to be on fluid restriction. He does not consume excess sodium in the diet. His lungs were clear. His liver functions are normal. His serum albumin was never too low. He had echocardiogram. Currently he is euvolemic on the current dose of diuretics. I did not make any medication changes today. Answered all questions Orders: Orders Electrolytes 1 Year E87.1 - Hypo-osmolality and hyponatremia, R60.9 - Edema, unspecified Blood Urea Nitrogen 1 Year E87.1 - Hypo-osmolality and hyponatremia, R60.9 - Edema, unspecified Creatinine 1 Year E87.1 - Hypo-osmolality and hyponatremia, R60.9 - Edema, unspecified Coding Level of Care Code Est Pt Level 4 (46042) Diagnoses Edema, unspecified type R60.9 Edema type: unspecified Hyponatremia E87.1
[2025-10-10 10:24] VITALS: BP 90/50; PULSE 70; O2SAT 98; BMI 20.6
== END 2025-10-10 11:13 | disposition home or self-care (01) ==
LOC: HO.HKAS 10:09
PROVIDERS: Visit Provider Internal Medicine Nephrology
DX: R60.9 Edema, unspecified (principal); E87.1 Hypo-osmolality and hyponatremia
CPT/HCPCS: 99214

== ENCOUNTER → 2025-10-10 10:08 | Outpatient (BNVA) | payer MEDICARE, BC, SELFPAY | PROVIDERS: Visit Provider Internal Medicine Nephrology | DX: R60.9 Edema, unspecified (principal); E87.1 Hypo-osmolality and hyponatremia | CPT/HCPCS: 99212 ==